=== PATIENT | female | born 1970 | race Hispanic/Latino ===

== ENCOUNTER 2019-11-15 10:24 | Outpatient (CLI) | payer OTHER, SELFPAY ==
[2019-11-15 10:45] LABS: Hemoglobin 12.3 g/dL (12.0-15.0); Mean Corpuscular HGB Conc 32.4 g/dl (32-36); Mean Corpuscular Hemoglobin 29.3 pg (26-34); Mean Corpuscular Volume 90.5 fl (80-100); Mean Platelet Volume 10.6 fl (7.4-10.4); Platelet Count Result 188 k/mm3 (150-375); Red Cell Distribution Width 12.4 % (11.5-14.5)
[2019-11-15 11:15] LABS: Rheumatoid Factor < 8.6 IU/ML (<12)
[2019-11-15 11:23] LABS: Blood Urea Nitrogen 10 mg/dL (7-17); Calcium 9.2 mg/dL (8.4-10.2); Carbon Dioxide 27 mmol/L (22-30); Chloride 106 mmol/L (98-107); Estimated Glomerular Filt Rate > 60; Glucose 123 mg/dL (65-105); Potassium 4.1 mmol/L (3.4-5.0); Sodium 141 mmol/L (137-145)
[2019-11-15 11:32] LABS: Erythrocyte Sedimentation Rate 24 mm/hr (0-20)
== END 2019-11-15 10:25 | disposition home or self-care (01) ==
LOC: ANHLAB 10:26
PROVIDERS: PCP Family Medicine; Visit Provider Nurse Practitioner Family
DX: R53.83 Other fatigue (principal); E55.9 Vitamin D deficiency, unspecified; E03.9 Hypothyroidism, unspecified
CPT/HCPCS: 36415; 80048; 82306; 84436; 84443; 85027; 85652; 86038; 86430

== ENCOUNTER 2019-12-13 11:41 | Outpatient (CLI) | payer OTHER, SELFPAY ==
[2019-12-13 12:25] LABS: Alanine Aminotransferase 38 U/L (4-35); Albumin Level 4.1 g/dL (3.5-5.1); Alkaline Phosphatase 87 U/L (38-126); Aspartate Amino Transferase 52 U/L (14-36); Bilirubin,Total 0.8 mg/dL (0.2-1.3); Blood Urea Nitrogen 8 mg/dL (7-17); Calcium 9.4 mg/dL (8.4-10.2); Carbon Dioxide 29 mmol/L (22-30); Chloride 107 mmol/L (98-107); Estimated Glomerular Filt Rate > 60; Glucose 115 mg/dL (65-105); Potassium 4.6 mmol/L (3.4-5.0); Sodium 143 mmol/L (137-145)
[2019-12-13 13:31] LABS: Hemoglobin A1C 6.7 % (<5.7)
[2019-12-13 13:36] LABS: Folic Acid > 20.0 ng/mL (2.76->20)
== END 2019-12-13 11:42 | disposition home or self-care (01) ==
PROVIDERS: PCP Nurse Practitioner Family; Visit Provider Nurse Practitioner Family
DX: E03.9 Hypothyroidism, unspecified (principal); R73.9 Hyperglycemia, unspecified; R53.83 Other fatigue
CPT/HCPCS: 36415; 80048; 80053; 82607; 82746; 83036; 84443

== ENCOUNTER → 2020-05-05 11:19 | Outpatient (CLI) | payer OTHER, SELFPAY ==
--- NOTE | ~2020-05-05 | CT_ITS ---
EXAMINATION: CT abdomen pelvis wo con DATE: 05/05/2020 11:42 INDICATION: Right flank and left lower quadrant pain, unspecified renal colic TECHNIQUE: Computed tomography (CT) of the abdomen and pelvis was performed without intravenous contr ast. The dose-length product (DLP) was 709.14 mGy-cm. Automated exposure control and iterative recons truction technique were employed. COMPARISON: 11/14/2014 FINDINGS: Minimal dependent atelectasis is present in the lung bases. The heart size is normal. The g allbladder is surgically absent. The liver, spleen, pancreas, and adrenal glands are normal. The kidn eys are unremarkable. No stones are identified in the kidneys, ureters, or bladder. There is no hydro nephrosis or hydroureter. Phleboliths are noted in the left ovarian vein. The appendix is normal. The visualized osseous structures are unremarkable. There is a tiny umbilical hernia containing fat. IMPRESSION: 1. No CT correlate for the patient's symptoms. Reviewed, dictated and finalized at location A. GE DISPOSAL ENGINEER
--- NOTE | ~2020-05-05 | MR_ITS ---
EXAMINATION: MR lumbar spine wo con DATE: 05/05/2020 12:10 INDICATION: Right-sided low back pain. TECHNIQUE: Magnetic resonance imaging (MRI) of the lumbar spine was performed without intravenous con trast. Sequences included sagittal T2-weighted FSE, sagittal T2-weighted FS FSE, sagittal T1-weighted FSE, and axial T2-weighted FSE. COMPARISON: None. FINDINGS: There is 7 degrees dextrocurvature of thoracolumbar spine. Vertebral body heights and inter vertebral disc heights are normal. The distal spinal cord signal intensity is normal. The conus medul griselda is at L1. The following disc levels are specifically discussed: L1-L2: The disc does not extend beyond the endplate margin. There is mild bilateral facet joint osteo arthritis. There is no neural foraminal stenosis. There is no central canal stenosis. L2-L3: The disc does not extend beyond the endplate margin. There is mild bilateral facet joint osteo arthritis. There is no neural foraminal stenosis. There is no central canal stenosis. L3-L4: The disc does not extend beyond the endplate margin. There is mild bilateral facet joint osteo arthritis. There is no neural foraminal stenosis. There is no central canal stenosis. L4-L5: The disc does not extend beyond the endplate margin. There is severe bilateral facet joint ost eoarthritis. There is no neural foraminal stenosis. There is no central canal stenosis. L5-S1: The disc does not extend beyond the endplate margin. There is moderate bilateral facet joint o steoarthritis. There is no neural foraminal stenosis. There is no central canal stenosis. IMPRESSION: 1. Lumbar facet joint osteoarthritis. Reviewed, dictated and finalized at location B. ST SURGEON
== END ==
PROVIDERS: PCP Nurse Practitioner Family; Visit Provider Nurse Practitioner Family
DX: R20.0 Anesthesia of skin (principal); N23 Unspecified renal colic; M51.36 Other intervertebral disc degeneration, lumbar region
CPT/HCPCS: 72148; 74176

== ENCOUNTER 2020-12-11 10:50 | Outpatient (CLI) | payer OTHER, SELFPAY ==
[2020-12-11 11:54] LABS: Hemoglobin A1C 6.2 % (<5.7)
[2020-12-11 12:00] LABS: Alanine Aminotransferase 55 U/L (4-35); Albumin Level 4.5 g/dL (3.5-5.1); Alkaline Phosphatase 72 U/L (38-126); Anion Gap 10 mmol/L (8-16); Aspartate Amino Transferase 51 U/L (14-36); Bilirubin,Total 1.1 mg/dL (0.2-1.3); Blood Urea Nitrogen 8 mg/dL (7-17); CRP < 0.5 mg/dL (<1.0); Calcium 9.6 mg/dL (8.4-10.2); Carbon Dioxide 28 mmol/L (22-30); Chloride 103 mmol/L (98-107); Cholesterol 202 mg/dL (0-200); Estimated Glomerular Filt Rate > 60; Glucose 104 mg/dL (65-110); HDL Direct 42 mg/dL; Potassium 3.9 mmol/L (3.4-5.0); Sodium 141 mmol/L (137-145); Triglycerides 137 mg/dL (<150); Uric Acid 3.5 mg/dL (2.5-7.5)
[2020-12-11 12:03] LABS: Rheumatoid Factor < 8.6 IU/ML (<12)
[2020-12-11 12:09] LABS: LDL Cholesterol Direct 117 mg/dL
[2020-12-11 12:12] LABS: Erythrocyte Sedimentation Rate 23 mm/hr (0-20)
== END 2020-12-11 10:51 | disposition home or self-care (01) ==
LOC: ANHLAB 10:51
PROVIDERS: PCP Nurse Practitioner Family; Visit Provider Nurse Practitioner Family
DX: E03.9 Hypothyroidism, unspecified (principal); E11.9 Type 2 diabetes mellitus without complications; M25.50 Pain in unspecified joint
CPT/HCPCS: 36415; 80053; 80061; 83036; 84443; 84550; 85652; 86038; 86140; 86430

== ENCOUNTER 2021-10-22 12:22 | Outpatient (CLI) | payer OTHER, SELFPAY ==
[2021-10-22 13:09] LABS: Alanine Aminotransferase 43 U/L (6-35); Albumin Level 4.3 g/dL (3.5-5.1); Alkaline Phosphatase 88 U/L (38-126); Anion Gap 5 mmol/L (8-16); Aspartate Amino Transferase 52 U/L (14-36); Bilirubin,Total 0.9 mg/dL (0.2-1.3); Blood Urea Nitrogen 7 mg/dL (7-17); Calcium 9.1 mg/dL (8.4-10.2); Carbon Dioxide 32 mmol/L (22-30); Chloride 104 mmol/L (98-107); Cholesterol 142 mg/dL (0-200); Estimated Glomerular Filt Rate > 60; Glucose 116 mg/dL (65-110); HDL Direct 33 mg/dL; Potassium 4.3 mmol/L (3.4-5.0); Sodium 141 mmol/L (137-145); Triglycerides 146 mg/dL (<150)
[2021-10-22 13:24] LABS: LDL Cholesterol Direct 82 mg/dL
[2021-10-22 13:33] LABS: Hemoglobin A1C 6.3 % (<5.7)
[2021-10-22 13:46] LABS: Free T4 Free Thyroxine 1.44 ng/mL (0.78-2.19); Vitamin D 25 Hydroxy 32.5 ng/mL
[2021-10-22 13:59] LABS: Creatinine Urine 73.2 mg/dL
[2021-10-22 14:08] LABS: Microalbumin Urine Random < 6.0 mg/L (0-16.7)
[2021-10-22 14:09] LABS: MALB Creatinine Ratio < 8.2 mg/g (0-30)
[2021-10-22 14:37] LABS: Folic Acid 8.6 ng/mL (2.76->20)
[2021-10-25 05:57] LABS: Thyroid Peroxidase Antibodies <1 IU/mL (<9)
[2021-10-25 21:45] LABS: Triiodothyronine T3 Free 3.1 pg/mL (2.3-4.2)
== END 2021-10-22 12:23 | disposition home or self-care (01) ==
LOC: ANHLAB 12:23
PROVIDERS: PCP Nurse Practitioner Family; Visit Provider Internal Medicine Endocrinology, Diabetes & Metabolism
DX: E78.5 Hyperlipidemia, unspecified (principal); E03.9 Hypothyroidism, unspecified; E55.9 Vitamin D deficiency, unspecified
CPT/HCPCS: 36415; 80053; 80061; 82043; 82306; 82607; 82746; 83036; 84439; 84443; 84481; 86376

== ENCOUNTER → 2021-11-08 16:15 | Outpatient (CLI) | payer OTHER, SELFPAY ==
--- NOTE | ~2021-11-08 | US_ITS ---
EXAMINATION: US thyroid DATE: 11/08/2021 16:32 INDICATION: Goiter. Hypothyroidism. TECHNIQUE: Multiple ultrasound images of the thyroid were obtained. COMPARISON: None. FINDINGS: The right thyroid lobe measures 3.3 x 1.1 x 1.1 cm. The left thyroid lobe measures 2.7 x 0.7 x 1.0 c m. In the right thyroid lobe, there is a 6 mm solid, hypoechoic, wider than tall nodule with ill-def ined margin without echogenic foci (TR4). IMPRESSION: 1. Small thyroid nodule, likely not clinically significant. No follow-up is needed. Reviewed, dictated and finalized at location K. IMPRESSION: 1. Small thyroid nodule, likely not clinically significant. No follow-up is nee ded.
== END ==
PROVIDERS: PCP Nurse Practitioner Family; Visit Provider Internal Medicine Endocrinology, Diabetes & Metabolism
DX: E04.9 Nontoxic goiter, unspecified (principal)
CPT/HCPCS: 76536

== ENCOUNTER 2022-01-05 09:06 | Outpatient (RCR) | payer OTHER, SELFPAY | END 2022-03-27 08:26 | disposition home or self-care (01) | LOC: ANHDMC 09:06 | PROVIDERS: PCP Nurse Practitioner Family; Visit Provider Internal Medicine Endocrinology, Diabetes & Metabolism | DX: E11.65 Type 2 diabetes mellitus with hyperglycemia (principal); Z71.89 Other specified counseling | CPT/HCPCS: G0108 ==

== ENCOUNTER 2022-07-15 10:51 | Outpatient (CLI) | payer OTHER, SELFPAY ==
[2022-07-15 11:39] LABS: Alanine Aminotransferase 44 U/L (6-35); Albumin Level 4.4 g/dL (3.5-5.1); Alkaline Phosphatase 104 U/L (38-126); Anion Gap 7 mmol/L (8-16); Aspartate Amino Transferase 51 U/L (14-36); Bilirubin,Total 0.8 mg/dL (0.2-1.3); Blood Urea Nitrogen 7 mg/dL (7-17); Calcium 8.9 mg/dL (8.4-10.2); Carbon Dioxide 27 mmol/L (22-30); Chloride 107 mmol/L (98-107); Estimated Glomerular Filt Rate > 60; Glucose 116 mg/dL (65-110); Potassium 4.1 mmol/L (3.4-5.0); Sodium 141 mmol/L (137-145)
[2022-07-15 11:41] LABS: Hemoglobin A1C 6.7 % (<5.7)
[2022-07-15 11:58] LABS: Free T4 Free Thyroxine 1.38 ng/mL (0.78-2.19)
[2022-07-15 12:10] LABS: Thyroid Stimulating Hormone 0.469 uIU/mL (0.465-4.680)
[2022-07-15 12:17] LABS: Creatinine Urine 107.5 mg/dL
[2022-07-15 12:27] LABS: Parathyroid Intact 78.6 pg/mL (7.5-53.5)
[2022-07-15 12:46] LABS: MALB Creatinine Ratio < 5.6 mg/g (0-30); Microalbumin Urine Random < 6.0 mg/L (0-16.7)
[2022-07-19 20:37] LABS: Triiodothyronine T3 Free 2.8 pg/mL (2.3-4.2)
[2022-07-20 03:15] LABS: Thyroid Peroxidase Antibodies <1 IU/mL (<9)
== END 2022-07-15 10:52 | disposition home or self-care (01) ==
PROVIDERS: PCP Nurse Practitioner Family; Visit Provider Internal Medicine Endocrinology, Diabetes & Metabolism
DX: E11.9 Type 2 diabetes mellitus without complications (principal); E03.9 Hypothyroidism, unspecified; E04.1 Nontoxic single thyroid nodule
CPT/HCPCS: 36415; 80053; 82043; 82308; 83036; 83970; 84439; 84443; 84481; 86376

== ENCOUNTER 2022-07-22 08:28 | Outpatient (CLI) | payer OTHER, SELFPAY ==
[2022-07-26 06:35] LABS: Calcitonin <2 pg/mL (<=5)
== END 2022-07-22 08:29 | disposition home or self-care (01) ==
LOC: ANHLAB 08:31
PROVIDERS: PCP Nurse Practitioner Family; Visit Provider Internal Medicine Endocrinology, Diabetes & Metabolism
DX: E11.9 Type 2 diabetes mellitus without complications (principal); E03.9 Hypothyroidism, unspecified; E04.1 Nontoxic single thyroid nodule
CPT/HCPCS: 36415; 82308

== ENCOUNTER 2022-07-26 15:41 | Outpatient (CLI) | payer OTHER, SELFPAY ==
--- NOTE | ~2022-07-26 | US_ITS ---
EXAMINATION: US thyroid DATE: 07/26/2022 16:09 INDICATION: Nontoxic single thyroid nodule. TECHNIQUE: Multiple ultrasound images of the thyroid were obtained. COMPARISON: Ultrasound 11/08/2021 FINDINGS: The right thyroid lobe measures 3.3 x 1.0 x 1.0 cm. The left thyroid lobe measures 3.2 x 1.2 x 1.1 c m. In the right thyroid lobe, there is a 7 mm solid, hypoechoic, wider than tall nodule with irregul ar margin without echogenic foci (TI-RADS TR4). IMPRESSION: 1. Stable thyroid nodule, likely not clinically significant. No follow-up is needed. Reviewed, dictated and finalized at location A. T ARMORED VEHICLE OFFICER IMPRESSION: 1. Stable thyroid nodule, likely not clinically significant. No follow-up is ne eded.
== END 2022-07-26 15:42 | disposition home or self-care (01) ==
PROVIDERS: PCP Nurse Practitioner Family; Visit Provider Internal Medicine Endocrinology, Diabetes & Metabolism
DX: E04.1 Nontoxic single thyroid nodule (principal)
CPT/HCPCS: 76536

== ENCOUNTER 2022-11-11 09:48 | Outpatient (CLI) | payer OTHER, SELFPAY ==
[2022-11-11 10:54] LABS: Parathyroid Intact 56.8 pg/mL (7.5-53.5)
[2022-11-11 11:00] LABS: Alanine Aminotransferase 57 U/L (6-35); Albumin Level 4.6 g/dL (3.5-5.1); Alkaline Phosphatase 111 U/L (38-126); Anion Gap 9 mmol/L (8-16); Aspartate Amino Transferase 62 U/L (14-36); Bilirubin,Total 0.9 mg/dL (0.2-1.3); Blood Urea Nitrogen 8 mg/dL (7-17); Calcium 9.4 mg/dL (8.4-10.2); Carbon Dioxide 29 mmol/L (22-30); Chloride 102 mmol/L (98-107); Estimated Glomerular Filt Rate > 60; Glucose 190 mg/dL (65-110); Potassium 4.3 mmol/L (3.4-5.0); Sodium 140 mmol/L (137-145)
[2022-11-11 11:07] LABS: Free T4 Free Thyroxine 1.17 ng/mL (0.78-2.19); Vitamin D 25 Hydroxy 30.3 ng/mL
[2022-11-11 12:33] LABS: MALB Creatinine Ratio < 6.8 mg/g (0-30); Microalbumin Urine Random < 6.0 mg/L (0-16.7)
[2022-11-11 13:25] LABS: Hemoglobin A1C 7.8 % (<5.7)
[2022-11-15 04:29] LABS: Thyroid Peroxidase Antibodies <1 IU/mL (<9)
[2022-11-15 14:51] LABS: Triiodothyronine T3 Free 2.5 pg/mL (2.3-4.2)
== END 2022-11-11 09:49 | disposition home or self-care (01) ==
LOC: ANHLAB 09:52
PROVIDERS: PCP Nurse Practitioner Family; Referring Provider Obstetrics & Gynecology; Visit Provider Internal Medicine Endocrinology, Diabetes & Metabolism
DX: E04.1 Nontoxic single thyroid nodule (principal); E03.9 Hypothyroidism, unspecified; E11.9 Type 2 diabetes mellitus without complications
CPT/HCPCS: 36415; 80053; 82043; 82306; 82308; 83036; 83970; 84439; 84443; 84481; 86376

== ENCOUNTER 2023-01-31 06:58 | Outpatient (CLI) | payer OTHER, SELFPAY ==
[2023-01-31 08:24] LABS: Alanine Aminotransferase 36 U/L (6-35); Albumin Level 4.1 g/dL (3.5-5.1); Alkaline Phosphatase 88 U/L (38-126); Anion Gap 6 mmol/L (8-16); Aspartate Amino Transferase 43 U/L (14-36); Bilirubin,Total 0.7 mg/dL (0.2-1.3); Blood Urea Nitrogen 7 mg/dL (7-17); Calcium 8.7 mg/dL (8.4-10.2); Carbon Dioxide 31 mmol/L (22-30); Chloride 104 mmol/L (98-107); Estimated Glomerular Filt Rate > 60; Glucose 116 mg/dL (65-110); Sodium 141 mmol/L (137-145)
[2023-01-31 08:42] LABS: Hemoglobin A1C 6.4 % (<5.7)
[2023-01-31 08:45] LABS: Creatinine Urine 220.7 mg/dL
[2023-01-31 08:47] LABS: Free T4 Free Thyroxine 1.32 ng/mL (0.78-2.19)
[2023-01-31 08:48] LABS: MALB Creatinine Ratio 4.2 mg/g (0-30); Microalbumin Urine Random 9.3 mg/L (0-16.7)
[2023-02-03 07:10] LABS: Triiodothyronine T3 Free 2.6 pg/mL (2.3-4.2)
== END 2023-01-31 06:59 | disposition home or self-care (01) ==
LOC: ANHLAB 06:59
PROVIDERS: PCP Nurse Practitioner Family; Visit Provider Internal Medicine Endocrinology, Diabetes & Metabolism
DX: E11.65 Type 2 diabetes mellitus with hyperglycemia (principal); E03.9 Hypothyroidism, unspecified
CPT/HCPCS: 36415; 80053; 82043; 83036; 84439; 84443; 84481

== ENCOUNTER 2024-01-26 11:07 | Outpatient (CLI) | payer OTHER, SELFPAY ==
[2024-01-26 11:46] LABS: Cholesterol 145 mg/dL (0-200); HDL Direct 40 mg/dL; Triglycerides 106 mg/dL (<150)
[2024-01-26 11:57] LABS: LDL Cholesterol Direct 85 mg/dL
== END 2024-01-26 11:08 | disposition home or self-care (01) ==
LOC: ANHLAB 11:09
PROVIDERS: PCP Nurse Practitioner Family; Visit Provider Family Medicine
DX: E78.5 Hyperlipidemia, unspecified (principal)
CPT/HCPCS: 36415; 80061

== ENCOUNTER 2024-06-14 09:10 | Outpatient (CLI) | payer OTHER, SELFPAY ==
[2024-06-14 09:47] LABS: Alanine Aminotransferase 20 U/L (6-35); Albumin Level 4.4 g/dL (3.5-5.1); Alkaline Phosphatase 70 U/L (38-126); Anion Gap 6 mmol/L (4-12); Aspartate Amino Transferase 26 U/L (14-36); Bilirubin,Total 0.9 mg/dL (0.2-1.3); Blood Urea Nitrogen 9 mg/dL (7-17); Calcium 9.5 mg/dL (8.4-10.2); Carbon Dioxide 30 mmol/L (22-30); Chloride 104 mmol/L (98-107); Cholesterol 186 mg/dL (0-200); Estimated Glomerular Filt Rate > 60; Glucose 104 mg/dL (65-110); HDL Direct 49 mg/dL; Potassium 4.5 mmol/L (3.4-5.0); Sodium 140 mmol/L (137-145); Triglycerides 150 mg/dL (<150)
[2024-06-14 09:57] LABS: LDL Cholesterol Direct 107 mg/dL
[2024-06-14 10:06] LABS: Free T4 Free Thyroxine 1.63 ng/dL (0.78-2.19)
[2024-06-14 10:18] LABS: Thyroid Stimulating Hormone 0.513 uIU/mL (0.465-4.680)
[2024-06-14 10:23] LABS: Creatinine Urine 183.7 mg/dL
[2024-06-14 10:28] LABS: MALB Creatinine Ratio 8.5 mg/g (0-30); Microalbumin Urine Random 15.6 mg/L (0-16.7)
--- OUTSIDE RECORDS SUMMARY | 2024-06-19 08:42 | XMS_ITS | Clinical Summary ---
Author Organization [facility] Address [address] [place] [address] Care Team Providers Care Tonnage Compilation Clerk Name Role Phone Harjit Patel MD Primary Care Provider [phone] Allergies No known active allergies Medications levothyroxine 125 mcg tablet Take 125 mcg by mouth daily travel consultant. Active atorvastatin (LIPITOR) 10 mg tablet Take 10 mg by mouth late in the day. Active cetirizine (ZyrTEC) 10 mg tablet Take 10 mg by mouth daily. Active Estradiol-Noreth indrone Acet (LOPREEZA) 0.5-0.1 mg Tablet Take 1 Tablet by mouth daily. Active pantoprazole (PROTONIX) 40 mg Tablet, Delayed Release (E.C.) Take 40 mg by mouth daily. Active ALPRAZolam (XANAX) 0.5 mg tablet Take 0.5 mg by mouth 3 times daily as needed for Anxiety. Active ergocalciferol (VITAMIN D2) 50,000 unit capsule Take 50,000 Units by mouth every 7 days. Active traMADol (ULTRAM) 50 mg tabletIndication s:Acute pain of right shoulder,Impinge ment syndrome of right shoulder Take 1 Tablet (50 mg) by mouth every 6 hours as needed for Pain. 30 Tablet 06/30/2019 Active traMADoL (ULTRAM) 50 mg tabletIndication s:Impingement syndrome of right shoulder Take 1 Tablet (50 mg) by mouth every 6 hours as needed for Pain. 30 Tablet 08/15/2019 Active traMADoL (ULTRAM) 50 mg tabletIndication s:Cervical radiculopathy,Im pingement syndrome of right shoulder Take 1 Tablet (50 mg) by mouth every 6 hours as needed for Pain. 30 Tablet 11/18/2019 Active Active Problems Problem Noted Date Diagnosed Date Bursitis of right shoulder 09/12/2017 Leukopenia 02/14/2017 Family History Medical History Relation Name Comments Diabetes Father Diabetes Mother Diabetes Sister 1 Diabetes Sister 2 Relation Name Status Comments Father Alive Mother Alive Sister 1 Alive Sister 2 Alive Social History Tobacco Use Types Packs/Day Years Used Date Smoking Tobacco: Former Cigarettes 0.3 5 0 02/14/2002 - 02/14/2007 Alcohol Use Standard Drinks/Week Comments No 0 (1 standard drink = 0.6 oz pur e alcohol) Comments No Sex and Gender Information Value Date Recorded Sex Assigned at Not on file Legal Sex Female 4:14 PM CDT Gender Identity Not on file Sexual Orientation Not on file Last Filed Vital Signs Vital Sign Reading Time Taken Comments Blood Pressure 100/72 07/23/2018 3:26 PM SUSPENSION CORD TIER Pulse 89 07/23/2018 3:26 PM SUSPENSION CORD TIER Temperature 36.9 ??C (98.4 ??F) 02/14/2017 10:41 AM C DT Respiratory Rate 16 02/14/2017 10:41 AM CDT Oxygen Saturation - - Inhaled Oxygen Concentration - - Weight 73.9 kg (163 lb) 08/04/2019 2:02 PM CDT Height 152.4 cm (5') 08/04/2019 2:02 PM CDT Body Mass Index 31.83 08/04/2019 2:02 PM CDT Plan of Treatment Health Maintenance Due Date Last Done Comments DTAP/TDAP/TD VACCINES (1 - Tdap) 1988 HEPATITIS B VACCINES (1 of 3 - 19+ 3-dose series) 1988 CERVICAL CANCER SCREENING 1999 BREAST CANCER SCREENING 2009 COLORECTAL SCREENING 2014 Colorectal Cancer Screening 2014 FIT-DNA Q 3 years 2014 FIT/FOBT Q 1 year 2014 Flex Sig/CT Colonography Q 5 years 2014 ZOSTER VACCINE (1 of 2) 2019 INFLUENZA VACCINE (#1) 2023 PNEUMOCOCCAL VACCINE 0-64 YEARS Aged Out No longer eligible based on patient's age to complete this topic Insurance [employer] [facility] OPEN ACCESS Care Teams Tonnage Compilation Clerk Relationship Specialty Start Date End Date Harjit Patel MD [address] [place] [address] PCP - General Family Practice 02/14/17
--- OUTSIDE RECORDS SUMMARY | 2024-06-19 08:42 | XMS_ITS | Data Portability ---
Author Organization [facility] [employer], Main Office Address [address] [place] [id number] Care Team Providers Care Grain Handler Name Role Phone CORBIN GALICIA Primary Care Provider [phone] Assessment Encounter Date Assessment Date Assessment LastModified by Organization Details LastModified Time 07/11/2023 07/11/2023 53 yo F with - WELL ADULT VISIT - LT LOWER LEG PAIN - HLD - DM II - HYPOTHYROIDISM - GERD - KNEE OA - DEPRESSION - ANXIETY - CHRONIC INSOMNIA - OBESITY I D/w pt about her findings, recent labs & imagines and further plan of care. Will do routine labs, x-ray. Will refer pt to Ophtho, Opening Machine Cleaner and GI. Meds as directed. Diet and exercise explained in detail. Educated pt about alarming symptoms to monitor at home and call us back Or get checked in ED. Pt verbalized understanding it. Cont f/u with Endo as per schedule. Cont f/u with Psych at [facility] as per schedule. HM: WWE - 12/17, normal as per pt. Cont f/u with Gyne as per schedule. Mammo - 12/17, normal as per pt. Colonoscopy - 12 yrs ago. Referred to GI. Flu - Pt declined. Tdap, Shingrix, Pneumo - At pharmacy/HD. F/u in 2-3 weeks. Annual labs in 07/22. [email or web address] Not available 07/11/2023 17:40:19 09/10/2023 09/10/2023 53 yo F with - LT WRIST & RT 5th FINGER PAIN, chronic - LT LOWER LEG PAIN, chronic - HLD, uncontrolled - DM II - HYPOTHYROIDISM - GERD - KNEE OA - DEPRESSION - ANXIETY - CHRONIC INSOMNIA - OBESITY I HbA1c: 5.3(07/28/23) Annual labs: 07/28/23. X-ray Lt le07/25/23. D/w pt about her findings, recent labs & imagines and further plan of care. Will do x-rays. Will refer pt to Hand surgeon. Advised pt to talk with her Endo about her TSH result and dose change. Meds as directed. Diet and exercise explained in detail. Educated pt about alarming symptoms to monitor at home and call us back Or get checked in ED. Pt verbalized understanding it. F/u with Ophtho as per schedule. F/u with Opening Machine Cleaner as per schedule. Cont f/u with Endo as per schedule. Cont f/u with Psych at [facility] as per schedule. HM: WWE - 12/17, normal as per pt. Cont f/u with Gyne as per schedule. Mammo - 12/17, normal as per pt. Colonoscopy - 12 yrs ago. Referred to GI. Flu - Pt declined. Tdap, Shingrix, Pneumo - At pharmacy/HD. F/u in 3 months. Lipids in 12/18. Annual labs in 07/22. [email or web address] Not available 09/10/2023 17:44:09 01/30/2024 01/30/2024 53 yo F with - HLD, improved - DM II - HYPOTHYROIDISM - LT WRIST & RT 5th FINGER PAIN, chronic - LT LOWER LEG PAIN, chronic - GERD - RECURRENT HERPES - KNEE OA - DEPRESSION - ANXIETY - CHRONIC INSOMNIA - OBESITY I HbA1c: 5.3(07/28/23) X-ray Rt hand & Lt wrist: 10/02/23. Annual labs: 07/28/23. X-ray Lt le07/25/23. D/w pt about her findings, recent labs & imagines and further plan of care. Will refer pt to Hand surgeon again. Advised pt to talk with her Endo about her TSH result and dose change. Meds as directed. Diet and exercise explained in detail. Educated pt about alarming symptoms to monitor at home and call us back Or get checked in ED. Pt verbalized understanding it. F/u with hand surgeon as per schedule. F/u with Ophtho as per schedule. F/u with Opening Machine Cleaner as per schedule. Cont f/u with Endo as per schedule. Cont f/u with Psych at [facility] as per schedule. HM: WWE - 12/17, normal as per pt. Cont f/u with Gyne as per schedule. Mammo - 12/17, normal as per pt. Colonoscopy - 12/18, normal as per pt. Cont f/u with GI as per schedule. Flu - Pt declined. Tdap, Shingrix, Pneumo - At pharmacy/HD. F/u in 3 months. Annual labs in 07/22. [email or web address] Not available 01/30/2024 17:18:17 Plan of Treatment Reminders Order Date Submit Date Provider Last Modified By Organization Details Last Modified Time Details Appointments None recorded. Lab CMP, serum or plasma 2022 023 [facility] (Lab), [address] [place] [address], [address], 3 13:28:01 HbA1c (hemoglobin A1c), blood 2022 023 [facility] (Lab), [address] [place] [address], [address], 4 14:50:44 microalbumi n/creatinin e, mass ratio, urine 2022 023 [facility] (Lab), [address] [place] [address], [address], 3 16:32:50 T3, free, serum or plasma 2022 023 [facility] (Lab), [address] [place] [address], [address], 4 17:12:58 TSH, serum or plasma 2022 023 [facility] (Lab), [address] [place] [address], [address], 3 11:31:54 T4, free, serum 2022 023 [facility] (Lab), [address] [place] [address], [address], 4 14:50:41 vitamin D, 25-hydroxy, total, serum [address] (Lab), [address] [place], [address], 4 14:00:33 glycohemogl obin, total, blood [address] (Lab), [address] [place], [address], 4 14:00:34 microalbumi n, urine [address] (Lab), [address] [place], [address], 4 14:00:34 H pylori Ag, qual immunoassay , stool [address] (Lab), [address] [place], [address], 4 14:00:34 uric acid, serum or plasma [address] (Lab), [address] [place], [address], 4 14:00:34 CBC w/ auto diff [address] (Lab), [address] [place], [address], 4 14:00:32 CMP, serum or plasma [address] (Lab), [address] [place], [address], 4 14:00:33 lipid panel, serum [address] (Lab), [address] [place], [address], 4 14:00:33 TSH, serum, reflex free T4 [address] (Lab), [address] [place], [address], 4 14:00:33 urinalysis complete, reflex culture [address] (Lab), [address] [place], [address], 4 14:00:33 lipid panel, serum [address] (Lab), [address] [place], [address], 4 08:26:42 Referral endocrinolo gy referral 2022 023 [email or web address] Elenita Courtney MD, [address], [place], [address], 4 17:12:58 gastroenter ologist referral - Please call patient to schedule an appointment . 2023 024 [email or web address] Raina Israel MD, [address] [facility], [address], [place], [address], 4 14:26:52 mint wafer depositor referral - Please call patient to schedule an appointment 2023 024 KENYA Martínez DPM, [address], [place], [address], 4 16:36:05 ophthalmolo gist referral - Please call patient to schedule an appointment . 2023 024 [email or web address] [facility], [address], [place], [address], 4 08:42:41 hand surgeon referral - Please call patient to schedule an appointment . Thank you. 2023 024 [email or web address] Rony Pollard MD, 2 [facility] , [address], [address], 4 08:39:37 Procedures None recorded. Surgeries None recorded. Imaging XR, tibia + fibula, 2 view 2023 024 [email or web address] Not available 4 09:41:02 XR, hand, 3 or more view 2023 024 [email or web address] Not available 4 08:56:39 XR, wrist, 3 or more view 2023 024 [email or web address] Not available 4 08:56:39 Medication Orders Trulicity 3 mg/0.5 mL subcutaneou s pen injector 2022 023 [facility] [address] [place], [place], [id number], 3 16:33:18 glimepiride 1 mg tablet 2022 023 [address] [facility], [address] [place], [place], [id number], 3 16:25:48 Synthroid 112 mcg tablet 2022 023 [place] [address] [facility], [address] [place] [address] , [address], [place], [address], 3 16:30:57 Mounjaro 5 mg/0.5 mL subcutaneou s pen injector 2022 023 [facility]00038, [address] [place], [place], [id number], 3 16:25:16 glimepiride 2 mg tablet 2022 023 [facility] #14116, [address] [facility], [place], [place], [id number], 3 16:25:15 metformin ER 500 mg tablet,exte nded release 24 hr 2022 023 [facility] #95963, [address] [facility], [place], [place], [id number], 3 16:26:25 OneTouch Verio test strips 2022 023 [facility] #88962, [address] [facility], [place], [place], [id number], 3 16:29:56 Synthroid 112 mcg tablet 2022 023 [facility], [address], [address], [place], [address], 3 16:26:53 pantoprazol e 40 mg tablet,latosha yed release 2023 024 [facility] #20433, [address] [facility], [place], [place], [id number], 4 17:24:05 celecoxib 200 mg capsule 2023 024 [facility] #63938, [address] [facility], [place], [place], [id number], 4 17:24:03 valacyclovi r 500 mg tablet 2023 024 [facility] #03771, [address] [facility], [place], [place], [id number], 4 20:05:59 atorvastati n 10 mg tablet 2023 024 [email or web address] [facility] #32243, [address], [place], [place], [id number], 4 17:12:52 pantoprazol e 40 mg tablet,latosha yed release 2023 024 [facility] #57529, [address], [place], [place], [id number], 4 20:06:08 celecoxib 200 mg capsule 2023 024 [facility] #17463, [address], [place], [place], [id number], 4 19:59:48 valacyclovi r 500 mg tablet 2023 024 [facility] #12580, [address], [place], [place], [id number], 4 17:10:05 pantoprazol e 40 mg tablet,latosha yed release 2023 024 [facility] #91893, [address], [place], [place], [id number], 4 17:10:05 atorvastati n 20 mg tablet 2023 024 [facility] #57546, [address], [place], [place], [id number], 4 00:16:13 celecoxib 200 mg capsule 2023 024 [facility] #45714, [address], [place], [place], [id number], 4 17:10:06 Patient TargetsNo targets recorded. Patient Instructions Encounter Date Encounter Id Patient Instructions Last Modified By Organization Details Last Modified Time 09/10/2023 [id number] high cholesterol : care instructions [email or web address] Not available 09/10/2023 17:44:20 01/30/2024 [id number] high cholesterol : care instructions [email or web address] Not available 01/30/2024 17:09:52 Reason for Referral Endocrinology Referral for U ncontrolled type 2 diabetes mellitus Referring Physician: Deana Castaneda, Endocrinology, Encounter Date: 02/06/2023 Director Client Referral for Screening colonoscopy Please call patient to schedule an appointment. Referring Physician: Corbin Galicia [facility] Medicine, Encounter Date: 07/11/2023 Opening Machine Cleaner Referral for Type 2 diabetes mellitus without complication Please call patient to schedule an appointment Referring Physician: Corbin Galicia [facility] Medicine, Encounter Date: 07/11/2023 Mobile Tester Referral for Type 2 diabetes mellitus without complication Please call patient to schedule an appointment. Referring Physician: Corbin Galicia [facility], Encounter Date: 07/11/2023 Hand Surgeon Referral for Pa in of left wrist Lt wrist and Rt 5th finger pain, chronic Please call patient to schedule an appointment. Thank you. Referring Physician: Corbin Galicia [facility], Encounter Date: 09/10/2023 Results Created Date Observation Date Name Description Value Unit Range Abnormal Flag Note LastModifiedBy Organization Detail LastModifiedTime 07/28/1907/30/2023 LIPID PANEL , [place] cholesterol, total 194 mg/dL <200 normal Not Available [facility] [address] [place], [address], 07/30/2023 14:50:36 07/28/1907/30/2023 LIPID PANEL , [place] HDL cholesterol 37 mg/dL > or = 50 low Not Available [facility] [address] [place], [address], 07/30/2023 14:50:36 07/28/1907/30/2023 LIPID PANEL , [place] triglyceride s 138 mg/dL <150 normal Not Available [facility] [address] [place], [address], 07/30/2023 14:50:36 07/28/19 24 07/30/2023 LIPID PANEL , [place] LDL-choleste rol 131 mg/dL _(linda c) high Refer ence range : <100 John able range <100 mg/dL for prima ry preve ntion ; <70 mg/dL for patie nts with CHD or diabe tic patie nts with > or = 2 CHD risk facto rs. LDL-C is now calcu lated using the Catie n-Hop kins calcu latcody n, which is a valid ated novel metho d provi ding sharmaine r accur acy than the Fried katt equat ion in the estim ation of LDL-C . Catie martinez SS et al. PAVITHRA. 2013; 310(1 9): 2061- 2068 (http ://ed ucati on.Qu Echometrix. FOLUP/f aq/FA Q164) Not Available [facility] [address] [place], [address], 07/30/2023 14:50:36 07/28/19 24 07/30/2023 LIPID PANEL , [place] chol/HDLC ratio 5.2 (calc ) <5.0 high Not Available [facility] [address] [place], [address], 07/30/2023 14:50:36 07/28/19 24 07/30/2023 LIPID PANEL , [place] non HDL cholesterol 157 mg/dL _(linda c) <130 high For patie nts with diabe pancho plus 1 major ASCVD risk facto r, treat ing to a non-H DL-C goal of <100 mg/dL (LDL- C of <70 mg/dL ) is susan campuzano thera peuti c optio n. Not Available [facility] [address] [place], [address], 07/30/2023 14:50:36 07/28/19 24 07/30/2023 URIC ACID uric acid 4.6 mg/dL 2.5-7. 0 normal Thera peuti c targe t for gout patie nts: <6.0 mg/dL Not Available [address] [place], [address], 07/30/2023 14:50:37 07/28/19 24 07/30/2023 COMPR EHENS FELIX METAB OLIC PANEL glucose 95 mg/dL 65-99 normal Fasti ng refer ence inter royer Not Available [address], [address], 07/30/2023 14:50:38 07/28/19 24 07/30/2023 COMPR EHENS FELIX METAB OLIC PANEL urea nitrogen (BUN) 10 mg/dL 7-25 normal Not Available [address], [address], 07/30/2023 14:50:38 07/28/19 24 07/30/2023 COMPR EHENS FELIX METAB OLIC PANEL creatinine 0.77 mg/dL 0.50-1 .03 normal Not Available [address] [place] [address] [place], [address], 07/30/2023 14:50:38 07/28/19 24 07/30/2023 COMPR EHENS FELIX METAB OLIC PANEL eGFR 92 mL/mi n/1.7 3m2 > or = 60 normal Not Available [address], [address], 07/30/2023 14:50:38 07/28/19 24 07/30/2023 COMPR EHENS FELIX METAB OLIC PANEL BUN/creatini ne ratio SEE NOTE: (calc ) 6-22 Not Repor nieves: BUN and Creat inine are withi n refer ence range . Not Available [address], [address], 07/30/2023 14:50:38 07/28/19 24 07/30/2023 COMPR EHENS FELIX METAB OLIC PANEL sodium 141 mmol/ L 135-14 6 normal Not Available [facility] [address] [address], [place], [address], 07/30/2023 14:50:38 07/28/19 24 07/30/2023 COMPR EHENS FELIX METAB OLIC PANEL potassium 4.3 mmol/ L 3.5-5. 3 normal Not Available [address], [address], 07/30/2023 14:50:38 07/28/19 24 07/30/2023 COMPR EHENS FELIX METAB OLIC PANEL chloride 105 mmol/ L 98-110 normal Not Available [address], [address], 07/30/2023 14:50:38 07/28/19 24 07/30/2023 COMPR EHENS FELIX METAB OLIC PANEL carbon dioxide 28 mmol/ L 20-32 normal Not Available [address], [address], 07/30/2023 14:50:38 07/28/19 24 07/30/2023 COMPR EHENS FELIX METAB OLIC PANEL calcium 9.8 mg/dL 8.6-10 .4 normal Not Available [address], [address], 07/30/2023 14:50:38 07/28/19 24 07/30/2023 COMPR EHENS FELIX METAB OLIC PANEL protein, total 7.5 g/dL 6.1-8. 1 normal Not Available [address], [address], 07/30/2023 14:50:38 07/28/19 24 07/30/2023 COMPR EHENS FELIX METAB OLIC PANEL albumin 4.6 g/dL 3.6-5. 1 normal Not Available [address], [address], 07/30/2023 14:50:38 07/28/19 24 07/30/2023 COMPR EHENS FELIX METAB OLIC PANEL globulin 2.9 g/dL_ (calc ) 1.9-3. 7 normal Not Available [address], [address], 07/30/2023 14:50:38 07/28/19 24 07/30/2023 COMPR EHENS FELIX METAB OLIC PANEL albumin/glob ulin ratio 1.6 (calc ) 1.0-2. 5 normal Not Available [address], [address], 07/30/2023 14:50:38 07/28/19 24 07/30/2023 COMPR EHENS FELIX METAB OLIC PANEL bilirubin, total 0.7 mg/dL 0.2-1. 2 normal Not Available [address], [address], 07/30/2023 14:50:38 07/28/19 24 07/30/2023 COMPR EHENS FELIX METAB OLIC PANEL alkaline phosphatase 63 U/L 37-153 normal Not Available [address], [address], 07/30/2023 14:50:38 07/28/19 24 07/30/2023 COMPR EHENS FELIX METAB OLIC PANEL AST 21 U/L 10-35 normal Not Available [address], [address], 07/30/2023 14:50:38 07/28/19 24 07/30/2023 COMPR EHENS FELIX METAB OLIC PANEL ALT 17 U/L 6-29 normal Not Available [address], [address], 07/30/2023 14:50:38 07/28/19 24 07/30/2023 CBC (INCL UDES DIFF/ PLT) white blood cell count 4.1 thous and/u L 3.8-10 .8 normal Not Available [address], [address], 07/30/2023 14:50:40 07/28/19 24 07/30/2023 CBC (INCL UDES DIFF/ PLT) red blood cell count 4.45 alex on/uL 3.80-5 .10 normal Not Available [address], [address], 07/30/2023 14:50:40 07/28/19 24 07/30/2023 CBC (INCL UDES DIFF/ PLT) hemoglobin 13.3 g/dL 11.7-1 5.5 normal Not Available [address], [address], 07/30/2023 14:50:40 07/28/19 24 07/30/2023 CBC (INCL UDES DIFF/ PLT) hematocrit 40.0 % 35.0-4 5.0 normal Not Available [address], [address], 07/30/2023 14:50:40 07/28/19 24 07/30/2023 CBC (INCL UDES DIFF/ PLT) MCV 89.9 fL 80.0-1 00.0 normal Not Available [address], [address], 07/30/2023 14:50:40 07/28/19 24 07/30/2023 CBC (INCL UDES DIFF/ PLT) MCH 29.9 pg 27.0-3 3.0 normal Not Available [address], [address], 07/30/2023 14:50:40 07/28/19 24 07/30/2023 CBC (INCL UDES DIFF/ PLT) MCHC 33.3 g/dL 32.0-3 6.0 normal Not Available [address], [address], 07/30/2023 14:50:40 07/28/19 24 07/30/2023 CBC (INCL UDES DIFF/ PLT) RDW 12.0 % 11.0-1 5.0 normal Not Available [address], [address], 07/30/2023 14:50:40 07/28/19 24 07/30/2023 CBC (INCL UDES DIFF/ PLT) platelet count 197 thous and/u L 140-40 0 normal Not Available [address], [address], 07/30/2023 14:50:40 07/28/19 24 07/30/2023 CBC (INCL UDES DIFF/ PLT) MPV 10.7 fL 7.5-12 .5 normal Not Available [address], [address], 07/30/2023 14:50:40 07/28/19 24 07/30/2023 CBC (INCL UDES DIFF/ PLT) absolute neutrophils 2677 cells /uL 1500-7 800 normal Not Available [address], [address], 07/30/2023 14:50:40 07/28/19 24 07/30/2023 CBC (INCL UDES DIFF/ PLT) absolute lymphocytes 1148 cells /uL 850-39 00 normal Not Available [address], [address], 07/30/2023 14:50:40 07/28/19 24 07/30/2023 CBC (INCL UDES DIFF/ PLT) absolute monocytes 213 cells /uL 200-95 0 normal Not Available [address], [address], 07/30/2023 14:50:40 07/28/19 24 07/30/2023 CBC (INCL UDES DIFF/ PLT) absolute eosinophils 41 cells /uL 15-500 normal Not Available [address], [address], 07/30/2023 14:50:40 07/28/19 24 07/30/2023 CBC (INCL UDES DIFF/ PLT) absolute basophils 21 cells /uL 0-200 normal Not Available [address], [address], 07/30/2023 14:50:40 07/28/19 24 07/30/2023 CBC (INCL UDES DIFF/ PLT) neutrophils 65.3 % normal Not Available [address], [address], 07/30/2023 14:50:40 07/28/19 24 07/30/2023 CBC (INCL UDES DIFF/ PLT) lymphocytes 28.0 % normal Not Available [address], [address], 07/30/2023 14:50:40 07/28/19 24 07/30/2023 CBC (INCL UDES DIFF/ PLT) monocytes 5.2 % normal Not Available [address], [address], 07/30/2023 14:50:40 07/28/19 24 07/30/2023 CBC (INCL UDES DIFF/ PLT) eosinophils 1.0 % normal Not Available [address], [address], 07/30/2023 14:50:40 07/28/19 24 07/30/2023 CBC (INCL UDES DIFF/ PLT) basophils 0.5 % normal Not Available [address], [address], 07/30/2023 14:50:40 07/28/19 24 07/30/2023 T4, FREE T4, free 1.4 NG/dL 0.8-1. 8 normal Not Available [facility] [address] [address], [place], [address], 07/30/2023 14:50:41 07/28/19 24 07/30/2023 TSH TSH 0.28 mIU/L low Refer ence Range > or = 20 Years 0.40- 4.50 Pregn stefany Range s First trime ster 0.26- 2.66 Secon d trime ster 0.55- 2.73 Third trime ster 0.43- 2.91 Not Available [facility] [address] [address] [address], [place], [address], 07/30/2023 14:50:42 07/28/19 24 07/30/2023 VITAM IN D,25- OH,TO HEATHER,I A vitamin D,25-oh,tota l,ia 38 NG/mL 30-100 normal Vitam in D Statu s 25-OH Vitam in D: Defic iency : <20 ng/mL Insuf ficie ncy: 20 - 29 ng/mL Optim al: > or = 30 ng/mL For 25-OH Vitam in D testi ng on patie nts on D2-burger pplem entat ion and patie nts for whom quant itati on of D2 and D3 fract ions is requi red, the [facility] e[facility](TM ) 25-OH VIT D, (D2,D 3), LC/MS /MS is recom ravinder d: order code 15258 (jayne ents >2yrs ). See Note 1 Note 1 For addit ional infor dilcia zamarripa refer to http: //enrico Pulido stDia gnost ics.c om/fa q/FAQ 199 (This link is being provi ded for infor chacho lee/ carter forrest purpo ses only. ) Not Available [facility] [address] [address] , [place], [address], 07/30/2023 14:50:43 07/28/19 24 07/30/2023 HEMOG LOBIN A1C hemoglobin A1C 5.3 %_of_ total _HGB <5.7 normal For the purpo se of scree feng for the prese nce of diabe pancho: <5.7% Consi stent with the absen ce of diabe pancho 5.7-6 .4% Consi stent with incre ased risk for diabe pancho (pred iabet es) > or =6.5% Consi stent with diabe pancho This assay resul t is consi stent with a decre ased risk of diabe pancho. Curre ntly, no conse nsus exist s jun cuellar use of hemog lobin A1c for diagn osis of diabe pancho in child juan antonio. Accor ding to Ameri can Diabe pancho Assoc iatio n (ADA) guide lines , hemog lobin A1c <7.0% repre sents optim al contr ol in non-p regna nt diabe tic patie nts. Diffe rent metri cs may apply to speci fic patie nt popul ation s. Stand ards of Medic al Care in Diabe pancho(A DA). This test was perfo rmed on the [employer] c8000 platf orm. Pleas e be advis ed that [facility] will move hemog lobin A1c testi ng to the [employer] platf orm soon. In gener al, direc t gorge rison of the resul ts from diffe rent platf orms is not recom ravinder d. Not Available [facility] [address] [place], [address], 07/30/2023 14:50:44 07/28/19 24 07/30/2023 HELIC OBACT ER PYLOR I AG, EIA, STOOL helicobacter pylori Ag, EIA, stool SEE NOTE HELIC OBACT ER PYLOR I AG, EIA, STOOL Micro Numbe r: [id number] Test Statu s: Final Speci men Sourc e: Stool Speci men Quali ty: Adequ ate H.pyl donnie Ag: Not Detec nieves Antim icrob ials, miranda n pump inhib itors , and bismu th prepa ratio ns inhib it H. pylor i and inges tion up to two weeks prior to testi ng may cause false negat felix resul ts. If clini goran indic ated the test shoul d be repea nieves on a new speci men obtai juan a two weeks after disco ntinu ing treat ment. Refer ence Range : Not Detec nieves Not Available [address], [address], 07/30/2023 14:50:45 07/25/19 24 tibia /fibu la 2 vws, [facility] [address] [place] [address] [phone] Patien t Name: LUNA VARGAS Access ion #: [id number] Sex: F : 1969 2 Dictat ed By: Rakesh Shepherd Attend ing Physic luis: STEPHANY GALICIA Orderi Physic luis: STEPHANY GALICIA Exam Date: 2023 15:45 PM Exam Name: XR TIBIA/ FIBULA LT 2V Admitt ing Diagno sis(es ): left tibia radiog raph CLINIC AL INDICA TION: pain TECHNI QUE: 2 radiog raphic views of the left tibia were obtain ed. Compar susana: none FINDIN GS: There is no eviden ce of acute fractu re or disloc ation. The visual ized joint space is well mainta ined. The alignm ent is anatom ical. Soft tissue s are unrema rkable . IMPRES ANGELIQUE: No acute fractu re or disloc ation. Electr onical ly Signed by: Rakesh Shepherd at 2023 16:38: 23 PM Page 1 [id number] [facility] (Imaging) [address] [place], [address], 09/10/2023 17:32:24 10/02/19 24 XR, wrist , 3 or more view [facility] [address] [place] [id number] [phone] Patien t Name: LUNA VARGAS Access ion #: [id number] Sex: F : 1969 9 Dictat ed By: Dionne Cain Attend ing Physic luis: STEPHANY GALICIA Physic luis: STEPHANY GALICIA Exam Date: 2023 15:31 PM Exam Name: XR WRIST LT 3V+ Admitt ing Diagno sis(es ): CLINIC AL INDICA TION: pain TECHNI QUE: 4 radiog raphic views of the left wrist were obtain ed. Compar susana: none FINDIN GS/ IMPRES ANGELIQUE: There is no eviden ce of acute fractu re or disloc ation. There is modera te osteoa rthros is of the first carpom etacar pal joint. There is no radiop aque foreig n body. Electr onical ly Signed by: Dionne Cain at 2023 16:13: 53 PM Page 1 [email or web address] [facility] ([facility]) [address] [place], [address], 01/30/2024 17:05:52 10/02/19 24 XR, hand, 3 or more view [facility] [address] [place] [address] Patien t Name: LUNA VARGAS [facility] ion #: [id number] Sex: F : 1969 9 Dictat ed By: Dionne Cain Attend ing Physic luis: STEPHANY GALICIA Physic luis: STEPHANY GALICIA Exam Date: 2023 15:31 PM Exam Name: XR HAND RT 3V Admitt ing Diagno sis(es ): CLINIC AL INDICA TION: pain TECHNI QUE: 3 radiog raphic views of the right hand were obtain ed. Compar susana: none FINDIN GS/ IMPRES ANGELIQUE: There is no eviden ce of acute fractu re or disloc ation. The visual ized joint space is well mainta ined. The alignm ent is anatom ical. There is no radiop aque foreig n body. Electr onical ly Signed by: Dionne Cain at 2023 16:14: 39 PM Page 1 [email or web address] [facility]) [address] [place], [address], 01/30/2024 17:05:52 Result Notes None recorded. Problems Name Problem SNOMED Code Status Onset Date Resolution Date Notes Provider Name and Address Organization Details Recorded Time Insomnia 724328266 Active 2020 Not Available [facility] 3 13:52:35 Lumbar spondylosi s 858413265 Active 2020 Not Available [facility] 3 13:52:35 Type 2 diabetes mellitus without complicati on 534348211 Active 2020 Not Available [facility] 3 13:52:35 Multiple joint pain 16011297 Active 2020 Not Available [facility] 3 13:52:35 Osteoarthr itis 365531950 Active 2020 Not Available [facility] 3 13:52:35 Hypothyroi dism 85745496 Active 2020 Not Available [facility] 3 13:52:35 Hyperlipid emia 06210244 Active 2021 Not Available [facility] 3 13:52:35 Overactive urinary bladder 722397321 Active 2020 Not Available [facility] 3 13:52:35 Well controlled type 2 diabetes mellitus 371237378 Active 2022 Deana Castaneda MD [address], [address], [address] , [employer] 3 13:52:16 Thyroid nodule 585799991 Active 2022 LAVERNE Barrera, [employer] 3 09:38:31 Uncontroll ed type 2 diabetes mellitus 451506029 Active 2022 Deana Castaneda MD [address], [address], [place], [address] , [employer] 3 17:15:50 Gastroesop hageal reflux disease without esophagiti s 709239983 Active 2023 Corbin Galicia MD [address] [address], [place], [address] , [facility] 4 17:16:15 Pain of bilateral knee joints 4971428895410 04 Active 2023 Corbin Galicia MD [address] [address], [place], [address] , [facility] 4 17:17:37 Pain in left lower limb 757278708 Active 2023 Corbin Galicia MD [address] [address], [place], [address] , [facility] 4 17:19:00 Herpes labialis 4946502 Active 2023 Corbin Galicia MD [address] [address], [place], [address] , [facility] 4 17:36:48 Pain of left wrist 3034772777707 02 Active 2023 Corbin Galicia MD [address] [address], [place], [address] , [facility] 4 17:37:41 Pain in finger of right hand 8485670040547 09 Active 2023 Corbin Galicia MD [address] [address], [place], [address] , [facility] 4 17:38:41 Problem Notes Documentation Provider Name and Address Organization Details Recorded Time Endocrinology Note : S_[facility] ? ? [address], [facility] [address]RIPDLIP, Silvia (id #[id number], : 1970) Documents sent via fax will include the following message: This fax may contain sensitive and confidential personal health information that is being sent for the sole use of the intended recipient. Unintended recipients are directed to securely destroy any materials received. You are hereby notified that the unauthorized disclosure or other unlawful use of this fax or any personal health information is prohibited. To the extent patient information contained in this fax is subject to 42 CFR Part 2, this regulation prohibits unauthorized disclosure of these records. If you received this fax in error, please visit [email or web address] to notify the sender and confirm that the information will be destroyed. If you do not have internet access, please call to notify the sender and confirm that the information will be destroyed. Thank you for your attention and cooperation. [ID:[id number]][facility] Monitoring Division [address] [place] [address] , Date: 11/21/2022RE: Luna Christiano, : 1970, PT ID #[id number] [place] [facility], I would like to thank you for referring Luna Alvarado to our practice for consultation and evaluation of FU ON LABS B , on 11/21/2022. I have enclosed a copy of the office evaluation for your records. Once again, thank you for allowing me to participate in the care of this patient. Sincerely, Electronically Signed by: DEANA CASTANEDA MD Encounter Reason/Date FU ON LABS B 11/21/2022 - 03:45PM - [facility] [place] Problems:Reviewed Problems Thyroid nodule - Onset: 11/01/2022 Hypothyroidism - Onset: 10/20/2020 Type 2 diabetes mellitus without complication - Onset: 10/20/2020 Type II diabetes mellitus uncontrolled - Onset: 11/21/2022 Hyperlipidemia - Onset: 08/30/2021 Insomnia - Onset: 10/20/2020 Osteoarthritis - Onset: 10/20/2020 Multiple joint pain - Onset: 10/20/2020 Lumbar spondylosis - Onset: 10/20/2020 Overactive bladder - Onset: 10/20/2020 Type 2 diabetes mellitus well controlled - Onset: 08/12/2022 Allergies: Reviewed Allergies NKDA Medications: Reviewed Medications NameDate Source amitriptyline 25 mg tabletTAKE 1 TABLET BY MOUTH EVERY DAY AT SRTGGJD99/10/22?filled MIGRATION.[id number] atorvastatin 20 mg tabletTAKE 1 TABLET BY MOUTH EVERY OTHER DAY AT OZUHPVQ17/17/22?filled surescripts benzonatate 200 mg capsuleTAKE 1 CAPSULE BY MOUTH THREE TIMES DAILY FOR 10 DAYS11/30/21?filled MIGRATION.1910601878 BinaxNOW COVID-19 Ag Self Test kitTEST DIRECTED TODAY12/26/21?filled MIGRATION.[id number] busPIRone 15 mg tabletTAKE 1 TABLET BY MOUTH TWICE A DAY OBNDIM51/27/23?filled surescripts celecoxib 200 mg capsuleTAKE 1 CAPSULE BY MOUTH TWICE DAILY11/10/21?filled MIGRATION.4706795102 cephALEXin 500 mg capsuleTAKE 1 CAPSULE BY MOUTH TWICE DAILY FOR 7 DAYS06/29/22?filled surescripts cetirizine 10 mg capsuleTake by oral route., start 12/03/?start ed MIGRATION.[id number] cloNIDine HCL 0.1 mg tabletTAKE 1 TABLET BY MOUTH TWICE DAILY NUOTXR42/13/22?filled MIGRATION.[id number] clotrimazole-betamethasone 1 %-0.05 % topical creamAPPLY TO THE AFFECTED AREA TWICE DAILY FOR 2 WEEKS07/15/21?filled MIGRATION.4913837159 ergocalciferol (vitamin D2) 1,250 mcg (50,000 unit) capsuleTAKE 1 CAPSULE BY MOUTH 1 TIME A WEEK WITH FOOD06/06/22?filled surescripts estradioL 0.01% (0.1 mg/gram) vaginal creamINSERT 1 GRAM VAGINALLY TWICE A WEEK10/15/22?filled surescripts FLUoxetine 20 mg capsuleTAKE 1 CAPSULE BY MOUTH EVERY DAY IN THE RFWMGUX78/27/23?filled surescripts FLUoxetine 40 mg capsuleTAKE 1 CAPSULE BY MOUTH EVERY DAY IN THE XFCZEPB79/28/22?filled surescripts glimepiride 1 mg tabletTake 1 tablet(s) twice a day by oral route before meals for 90 days.11/21/22?prescribed Deana Castaneda MD ID NOW COVID-19 Test KitTEST DIRECTED TODAY12/01/21?filled MIGRATION.[id number] metFORMIN ER 500 mg tablet,extended release 24 hrTAKE 1 TABLET BY MOUTH EVERY DAY AT ZCSUGZ37/12/23?filled surescripts nystatin-triamcinolone 100,000 unit/g-0.1 % topical creamAPPLY TOPICALLY TO THE AFFECTED AREA TWICE DAILY08/30/21?filled MIGRATION.9952998966 OneTouch Delica Plus Lancet 33 gaugeTEST FASTING BLOOD SUGAR DAILY10/24/20?filled MIGRATION.[id number] OneTouch Verio Flex MeterTEST FASTING BLOOD SUGAR DAILY10/24/20?filled MIGRATION.0191952196 OneTouch Verio test stripsTEST FASTING BLOOD SUGAR DAILY10/24/20?filled MIGRATION.8631730339 oxyBUTYnin chloride ER 5 mg tablet,extended release 24 hrTAKE 1 TABLET BY MOUTH EVERY DAY10/13/22?filled surescripts pantoprazole 40 mg tablet,delayed releaseTAKE 1 TABLET BY MOUTH DAILY11/07/22?filled surescripts Synthroid 112 mcg tabletTake 1 tablet(s) every day by oral route in the morning for 90 days.11/21/22?prescribed Deana Castaneda MD Trulicity 3 mg/0.5 mL subcutaneous pen injectorInject 3 mg every week by subcutaneous route at dinner for 90 days.11/21/22?prescribed Deana Castaneda MD Vitamin D 50,000 unit capsuleTake by oral route., start ?start ed MIGRATION.[id number] zolpidem 5 mg tabletTAKE 1 TABLET BY MOUTH EVERY DAY AT PGJCQER86/20/23?filled surescripts zolpidem ER 6.25 mg tablet,extended release,multiphaseTAKE 1 TABLET BY MOUTH AT BEDTIME OHREHR81/02/22?filled surescripts Family History: Father - Diabetes mellitus ( age: 82) Mother - Diabetes mellitus (onset age: 80) ?? - Anxiety disorder (onset age: 80) Sister - Diabetes mellitus (onset age: 50) ?? - Disorder of thyroid gland (onset age: 50) Social History:Diet and ExerciseWhat type of diet are you following?: RegularDo you have any dietary restrictions?: NoWhat is your exercise level?: ModerateHome and EnvironmentWhere do you live?: TrailerDo you have smoke and carbon monoxide detectors in your home?: YesAre you passively exposed to smoke?: NoPublic Health and TravelHave you recently traveled abroad?: NoIn the 14 days before symptom onset, have you had close contact with a laboratory-confirmed COVID-19 while that case was ill?: NoIn the 14 days before symptom onset, have you had close contact with a person who is under investigation for COVID-19 while that person was ill?: NoSubstance UseDo you or have you ever smoked tobacco?: Never smokerHow much tobacco do you chew?: noneDo you or have you ever used e-cigarettes or vape?: Never used electronic cigarettesWhich illicit or recreational drugs have you used?: noneWhat is your level of alcohol consumption?: NoneWhat is your level of caffeine consumption?: ModerateAdvance DirectiveDo you have a medical power of quahogger?: NoMarriage and SexualityWhat is your relationship status?: MarriedLifestyleDo you wear a helmet when biking?: NoDo you use your seat belt or car seat routinely?: YesEducation and OccupationWhat is your 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 Since June her sugars have been higher. She is having yeast infection and not able to take the jardiance -caused this in the past. thyroid u/s from 11/08:6 mm right thyroid nodule She has no pain or pressure in her thyroid region. Sugars running over 150 mg/dL before mealsmid to high 100 mg/DL fastingno hypoglycemia labs from 11/11/22:a1c 7.8%microalbumin <6.8 ug/mgvit D 30.3 ng/mLFT4 of 1.17 ng/dLPTH 56.8 pg/mLcalcium 9.4 mg/dLglucose 190 mg/dLLFT highTSH of 1.950 uIU/mLTPO negFT3 of 2.5 pg/MLcalcitonin not completedReview of Systems:ROS as noted in the HPIPhysical ExamConstitutional:General Appearance: healthy-appearing, well-nourished, well-developed, not anxious/nervous, and no sweating. Level of Distress: no acute distress. Eyes:Lids and Conjunctivae: no discharge, pallor, lid lag, or periorbital edema and non-injected. Neck:Neck: supple, trachea midline, no masses, and full range of motion. Thyroid: no enlargement or nodules and non-tender. Neck vessels: no carotid bruits or thyroid bruits. Lymph Nodes: no anterior cervical LAD, posterior cervical LAD, submandibular LAD, submental LAD, preauricular LAD, or supraclavicular LAD. Cardiovascular:Apical Impulse: not displaced. Heart Auscultation: normal S1 and S2; no murmurs, rubs, or gallops; and regular rate and rhythm. Lungs:Auscultation: no wheezing, rales/crackles, or rhonchi and breath sounds normal, good air movement, and clear to auscultation. Psychiatric:Mental Status: normal mood and affect, no diffuse anxiety or paranoid ideations, and active and alert.Procedure DocumentationNone recordedAssessment/Plan1. Type II diabetes mellitus uncontrolled-A1C of 7.8% up from 6.3%- continue on trulicity but uptitrate to 3 mg once weekly along with metformin for insulin sensitization. Encouraged patient to test sugars prebreakfast and predinner and at times before bedtime to maintain log for review at return visit. Recommend she take her glimepiride on glucose scale according to glucose checks. If sugars are running under 100 mg/dL hold glimepiride, if 101-140 mg/dL take half tablet, if 141-180 mg/dL take full tablet and if over 180 mg/dL take 2 tablets for the full 2 mg of glimepiride up to twice daily before meals. If sugars are consistently over 180 mg/dL she was advised to contact clinic and notify me so we can modify changes. Patient advised to bring glucose meter at return visit for review. Discussed carb counting and how to read food labels. Recommended patient to utilize the diabetesHolganix.FOLUP from the ADA website to help with food preparation as this presents ideal carb content per meal so this will make carb counting much easier for patient. Recommended she incorporate natural insulin sensitizers such as pears, apples, cinnamon, rajat and sweet potatoes to help mobilize her endogenous insulin. Recommended up to 150 minutes of moderate level activity/exercise weekly.E11.65: Type 2 diabetes mellitus with hyperglycemia CMP, SERUM OR PLASMA HBA1C (HEMOGLOBIN A1C), BLOOD MICROALBUMIN/CREATININE, MASS RATIO, URINE Trulicity 3 mg/0.5 mL subcutaneous pen injector - Inject 3 mg every week by subcutaneous route at dinner for 90 days. ? Qty: (12)?0.5 mL syringe ? Refills: 1 ? Pharmacy: [facility] #[id number] glimepiride 1 mg tablet - Take 1 tablet(s) twice a day by oral route before meals for 90 days. ? Qty: (180)?tablet ? Refills: 1 ? Pharmacy: [facility] #[id number] 2. Hypothyroidism-FT4 low normal range- will uptitrate synthroid to 112 mcg daily. She was reminded to take her synthroid on empty stomach with glass of water and wait one hour to eat or have her coffee in morning and up to 4 hours if ever taking any heartburn or reflux medications to help optimize absorption. Discussed paleo like diet with restriction of GMOs to help with energy and to optimize absorption of vitamins and minerals and reduce inflammation. Spent up to 28 minutes preparing to see the patient (eg, review of tests), obtaining and/or reviewing separately obtained history, performing a medically appropriate examination and evaluation, counseling and educating the patient, ordering medications, tests, along with documenting clinical information in the electronic health record, independently interpreting results and communicating results to the patient. RTC in 4 months. Patient was provided a handwritten lab order which contains our fax number. If she chooses to go outside of the [email or web address] system to obtain labwork she was advised to provide our fax number and my information to the lab she will be obtaining labwork from in order to have her labs properly forwarded over for me to review so there is no loss of follow up due to use of outside network. She was also advised to contact our clinic informing us that she has completed her labwork so we are aware we will need to reach out to the appropriate laboratory to request her results be forwarded to us so I might have the ability to review and make further medical decision making in her case. She voiced understanding.E03.9: Hypothyroidism, unspecified T3, FREE, SERUM OR PLASMA TSH, SERUM OR PLASMA T4, FREE, SERUM Synthroid 112 mcg tablet - Take 1 tablet(s) every day by oral route in the morning for 90 days. ? Qty: (90)?tablet ? Refills: 1 ? CHRISTELLE: Y ? Pharmacy: [facility] #[id number] Return to Office Deana Castaneda MD for Follow Up 15 at [facility] on 02/06/2023 at 03:00 PM Corbin Galicia MD [address] [place] [address], [address], [facility] 07/11/2023 17:12:58 Endocrinology Note : [facility] ? ? [address], [place] [facility] [address]NMNBQMK, Silvia (id #[id number], : 1970) Documents sent via fax will include the following message: This fax may contain sensitive and confidential personal health information that is being sent for the sole use of the intended recipient. Unintended recipients are directed to securely destroy any materials received. You are hereby notified that the unauthorized disclosure or other unlawful use of this fax or any personal health information is prohibited. To the extent patient information contained in this fax is subject to 42 CFR Part 2, this regulation prohibits unauthorized disclosure of these records. If you received this fax in error, please visit [email or web address] to notify the sender and confirm that the information will be destroyed. If you do not have internet access, please call to notify the sender and confirm that the information will be destroyed. Thank you for your attention and cooperation. [ID:[id number]][facility] Monitoring Division [address] [place] [address] , Date: 02/06/2023RE: Lunajusten Alvarado, : 1970, PT ID #[id number] Adriana [facility]-, I would like to thank you for referring Luna Alvarado to our practice for consultation and evaluation of FU ON LABS , on 02/06/2023. I have enclosed a copy of the office evaluation for your records. Once again, thank you for allowing me to participate in the care of this patient. Sincerely, Electronically Signed by: DEANA CASTANEDA MD Encounter Reason/Date FU ON LABS 02/06/2023 - 03:00PM - [facility] [place] Problems:Reviewed Problems Thyroid nodule - Onset: 11/01/2022 Hypothyroidism - Onset: 10/20/2020 Type 2 diabetes mellitus without complication - Onset: 10/20/2020 Type II diabetes mellitus uncontrolled - Onset: 11/21/2022 Hyperlipidemia - Onset: 08/30/2021 Insomnia - Onset: 10/20/2020 Osteoarthritis - Onset: 10/20/2020 Multiple joint pain - Onset: 10/20/2020 Lumbar spondylosis - Onset: 10/20/2020 Overactive bladder - Onset: 10/20/2020 Type 2 diabetes mellitus well controlled - Onset: 08/12/2022 Allergies: Reviewed Allergies NKDA Medications: Reviewed Medications NameDate Source amitriptyline 25 mg tabletTAKE 1 TABLET BY MOUTH EVERY DAY AT YBNAFPI87/10/22?filled MIGRATION.[id number] atorvastatin 20 mg tabletTake 1 tablet every other day by oral route at bedtime for 90 days.12/06/22?filled surescripts benzonatate 200 mg capsuleTAKE 1 CAPSULE BY MOUTH THREE TIMES DAILY FOR 10 DAYS11/30/21?filled MIGRATION.[id number] busPIRone 15 mg tabletTAKE 1 TABLET BY MOUTH TWICE A DAY CALLKE96/21/23?filled surescripts celecoxib 200 mg capsuleTAKE 1 CAPSULE BY MOUTH TWICE DAILY11/10/21?filled MIGRATION.8676377973 cetirizine 10 mg capsuleTake by oral route., start ?start ed MIGRATION.[id number] cloNIDine HCL 0.1 mg tabletTAKE 1 TABLET BY MOUTH TWICE DAILY UOBWPU37/13/22?filled MIGRATION.[id number] clotrimazole-betamethasone 1 %-0.05 % topical creamAPPLY TO THE AFFECTED AREA TWICE DAILY FOR 2 WEEKS07/15/21?filled MIGRATION.[id number] ergocalciferol (vitamin D2) 1,250 mcg (50,000 unit) capsuleTAKE 1 CAPSULE BY MOUTH 1 TIME A WEEK WITH FOOD06/06/22?filled surescripts estradioL 0.01% (0.1 mg/gram) vaginal creamINSERT 1 GRAM VAGINALLY TWICE A WEEK10/15/22?filled surescripts FLUoxetine 20 mg capsuleTAKE 1 CAPSULE BY MOUTH EVERY DAY IN THE VHOCCXX80/21/23?filled surescripts glimepiride 2 mg tabletTake 1 tablet(s) twice a day by oral route before meals for 90 days.02/06/23?prescribed Deana Castaneda MD metFORMIN ER 500 mg tablet,extended release 24 hrTAKE 1 TABLET BY MOUTH EVERY DAY AT RLITGE31/12/23?prescribe d Deana Castaneda MD Mounjaro 5 mg/0.5 mL subcutaneous pen injectorInject 5 mg every week by subcutaneous route at dinner for 90 days.02/06/23?prescribed Deana Castaneda MD nystatin-triamcinolone 100,000 unit/g-0.1 % topical creamAPPLY TOPICALLY TO THE AFFECTED AREA TWICE DAILY08/30/21?filled MIGRATION.[id number] OneTouch Delica Plus Lancet 33 gaugeTEST FASTING BLOOD SUGAR DAILY10/24/20?filled MIGRATION.[id number] OneTouch Verio Flex MeterTEST FASTING BLOOD SUGAR DAILY10/24/20?filled MIGRATION.[id number] OneTouch Verio test stripsTEST BLOOD SUGAR TWICE DAILY BEFORE MEALS02/06/23?prescribed Deana Castaneda MD oxyBUTYnin chloride ER 5 mg tablet,extended release 24 hrTAKE 1 TABLET BY MOUTH EVERY DAY01/15/23?filled surescripts pantoprazole 40 mg tablet,delayed releaseTAKE 1 TABLET BY MOUTH DAILY12/06/22?filled surescripts Synthroid 112 mcg tabletTake 1 tablet(s) every day by oral route in the morning for 90 days.02/06/23?prescribed Deana Castaneda MD Vitamin D 50,000 unit capsuleTake by oral route., start ?start ed MIGRATION.[id number] zolpidem 5 mg tabletTAKE 1 TABLET BY MOUTH EVERY DAY AT MHVKJXV62/10/23?filled surescripts Family History: Father - Diabetes mellitus ( age: 82) Mother - Diabetes mellitus (onset age: 80) ?? - Anxiety disorder (onset age: 80) Sister - Diabetes mellitus (onset age: 50) ?? - Disorder of thyroid gland (onset age: 50) Social History:Home and EnvironmentWhere do you live?: TrailerDo you have smoke and carbon monoxide detectors in your home?: YesAre you passively exposed to smoke?: NoSubstance UseDo you or have you ever smoked tobacco?: Never smokerWhich illicit or recreational drugs have you used?: noneDo you or have you ever used e-cigarettes or vape?: Never used electronic cigarettesHow much tobacco do you chew?: noneWhat is your level of alcohol consumption?: NoneWhat is your level of caffeine consumption?: ModerateLifestyleDo you wear a helmet when biking?: NoDo you use your seat belt or car seat routinely?: YesEducation and OccupationWhat is 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 TravelHave you recently traveled abroad?: NoIn the 14 days before symptom onset, have you had close contact with a laboratory-confirmed COVID-19 while that case was ill?: NoIn the 14 days before symptom onset, have you had close contact with a person who is under investigation for COVID-19 while that person was ill?: NoDiet and ExerciseWhat type of diet are you following?: RegularDo you have any dietary restrictions?: NoWhat is your exercise level?: ModerateAdvance DirectiveDo you have a medical power of quahogger?: NoMarriage and SexualityWhat is your relationship status?: MarriedGender Identity and LGBTQ IdentityGender identity: Identifies as FemaleAssigned sex at : FemaleSurgical History Hysterectomy - 2002 Additional HistoryNone recordedHistory of Present Illness:52 yo female comes in for follow up in management of uncontrolled type 2 DM (A1C of 7.8%), dyslipidemia and hypothyroidism. last seen in October at that time we had patient continue on trulicity but uptitrate to 3 mg once weekly along with metformin for insulin sensitization. we added glimepiride scale we continued synthroid 112 mcg daily and statin therapy. She has gained 16 pounds in the last 1.5 years. She is noticing more abdominal discomfort on the 3 mg dose and not with the 1.5 mg trulicity- she has no nausea or vomiting on the medication. She is taking her glimepiride after her meals and postmeal sugars high over 180 mg/dL. She stopped taking her metformin but not advised to do so. She does have hx of yeast infections. labs from 01/31/23:FT3 of 2.6 pg/mLglucose 159 mg/dlCr normalTSH of 4.830 uIU/mlglucose 116 mg/dLLFT [id number] 7.8%microalbumin <6.8 ug/mgTPO negReview of Systems:ROS as noted in the HPIPhysical ExamConstitutional:General Appearance: healthy-appearing, well-nourished, well-developed, not anxious/nervous, and no sweating. Level of Distress: no acute distress. Eyes:Lids and Conjunctivae: no discharge, pallor, lid lag, or periorbital edema and non-injected. Neck:Neck: supple, trachea midline, no masses, and full range of motion. Thyroid: no enlargement or nodules and non-tender. Neck vessels: no carotid bruits or thyroid bruits. Lymph Nodes: no anterior cervical LAD, posterior cervical LAD, submandibular LAD, submental LAD, preauricular LAD, or supraclavicular LAD. Cardiovascular:Apical Impulse: not displaced. Heart Auscultation: normal S1 and S2; no murmurs, rubs, or gallops; and regular rate and rhythm. Lungs:Auscultation: no wheezing, rales/crackles, or rhonchi and breath sounds normal, good air movement, and clear to auscultation. Psychiatric:Mental Status: normal mood and affect, no diffuse anxiety or paranoid ideations, and active and alert.Procedure DocumentationNone recordedAssessment/Plan1. Type II diabetes mellitus uncontrolled-A1C of 7.8%- will transition off trulicity as this has not helped with overall insulin resistance or weight loss- will transition to lower dose as we have samples of 2.5 mg once weekly- she is aware to take for 4 weeks with large meal and titrate to 5 mg weekly thereafter if tolerated. Encouraged patient to test sugars prebreakfast and predinner and at times before bedtime to maintain log for review at return visit. Recommend she take her glimepiride on glucose scale according to glucose checks. If sugars are running under 100 mg/dL hold glimepiride, if 101-140 mg/dL take half tablet, if over 140 mg/dL take full tablet. If sugars are consistently over 180 mg/dL she was advised to contact clinic and notify me so we can modify changes. Patient advised to bring glucose meter at return visit for review. Restart metformin for insulin sensitization. Refer to endocrinology per patient request.E11.65: Type 2 diabetes mellitus with hyperglycemia Mounjaro 5 mg/0.5 mL subcutaneous pen injector - Inject 5 mg every week by subcutaneous route at dinner for 90 days. ? Qty: (12)?0.5 mL syringe ? Refills: 1 ? Pharmacy: [facility] #[id number] glimepiride 2 mg tablet - Take 1 tablet(s) twice a day by oral route before meals for 90 days. ? Qty: (180)?tablet ? Refills: 1 ? Pharmacy: [facility] #[id number] metformin ER 500 mg tablet,extended release 24 hr - TAKE 1 TABLET BY MOUTH EVERY DAY AT DINNER ? Qty: (90)?tablet ? Refills: 1 ? Pharmacy: [facility] #[id number] OneTouch Verio test strips - TEST BLOOD SUGAR TWICE DAILY BEFORE MEALS ? Qty: (180)?strip ? Refills: 2 ? Pharmacy: [facility] #[id number] ? Note to Pharmacy: patient has one touch reveal meter please provide lancets and strips for this thank you ONETOUCH VERIO LANCETS - ? test sugars twice daily before meals x 90 days ? Qty: 180 Units ? Refills: 3 ? Supplier: [facility] #[id number] ENDOCRINOLOGY REFERRAL - ?Schedule Within: provider's discretion 2. Hypothyroidism-FT4 normal range- continue synthroid at 112 mcg daily. She was reminded to take her synthroid on empty stomach with glass of water and wait one hour to eat or have her coffee in morning and up to 4 hours if ever taking any heartburn or reflux medications to help optimize absorption. Discussed paleo like diet with restriction of GMOs to help with energy and to optimize absorption of vitamins and minerals and reduce inflammation. Spent up to 25 minutes preparing to see the patient (eg, review of tests), obtaining and/or reviewing separately obtained history, performing a medically appropriate examination and evaluation, counseling and educating the patient, ordering medications, tests, along with documenting clinical information in the electronic health record, independently interpreting results and communicating results to the patient. Patient can be followed by PCP - she/he is aware of my resignation and last day of March 09. If needed his/her PCP can refer patient to another [facility] tech in the area. All questions /concerns answered and refills necessary at visit today.E03.9: Hypothyroidism, unspecified Synthroid 112 mcg tablet - Take 1 tablet(s) every day by oral route in the morning for 90 days. ? Qty: (90)?tablet ? Refills: 1 ? CHRISTELLE: Y ? Pharmacy: [facility] Return to Office Patient will return to the office as needed Corbin Galicia MD [address] [facility], [address], [place], [address], [place] [facility] [place] [facility] 07/11/2023 17:12:58 Procedures Surgical History Date Name Laterality Status Provider Name and Address Organization Details Recorded Time 05/18/20 21 Date of Last Pap Smear completed Not Available [facility] 07/26/2022 13:51:55 Hyste[facility] completed Not [facility] 07/26/[facility]22 13:51:56 Imaging Results Imaging Date Name Status LastModified by Organiz ation Details LastModified Time 07/25/2023 tibia/fibu la 2 vws, left completed [email or web address] [facility] ([facility] [address] [place], [address], 09/10/2023 17:32:24 10/02/2023 XR, wrist, 3 or more view completed [id number] [facility] [address] [place], [address], 01/30/2024 17:05:52 10/02/2023 XR, hand, 3 or more view completed [id number] [facility] [address] [place], [address], 01/30/2024 17:05:52 Procedure Notes None recorded. Medical Equipment None Reported. Allergies No known drug allergies Medications Name Sig Start Date Stop Date Status Note LastModified by Organization Details LastModified Time quetiapine 25 mg tablet TAKE 1 TABLET BY MOUTH EVERY DAY AT BEDTIME FOR 4 DAYS 08/30 completed Not Available Not Available Not Available celecoxib 200 mg capsule TAKE 1 CAPSULE BY MOUTH TWICE DAILY WITH FOOD NEEDED active Not Available Not Available No t Available fluoxetine 40 mg capsule TAKE 1 CAPSULE BY MOUTH EVERY DAY IN THE MORNING 02/06 completed Not Available Not Available Not Available cyclobenzap rine 10 mg tablet TAKE 1 TABLET BY MOUTH EVERY 8 HOURS NEEDED. CUT IN HALF IF TOO SEDATING. active Not Available Not Available No t Available hydroxyzine pamoate 100 mg capsule TAKE 1 CAPSULE BY MOUTH TWICE DAILY NEEDED 11/21 completed Not Available Not Available Not Available amoxicillin 500 mg capsule TAKE ONE CAPSULE BY MOUTH THREE TIMES DAILY UNTIL ALL TAKEN 07/11 completed Not Available Not Available Not Available metformin 500 mg tablet TAKE 1 TABLET BY MOUTH DAILY active Not Available Not Available No t Available venlafaxine ER 37.5 mg capsule,ext ended release 24 hr TAKE 1 CAPSULE BY MOUTH EVERY DAY IN THE MORNING FOR 7 DAYS 08/30 completed Not Available Not Available Not Available clonidine HCl 0.1 mg tablet TAKE 1 TABLET BY MOUTH TWICE DAILY NEEDED 11/19 completed Not Available Not Available Not Available prednisone 10 mg tablet 12/09 completed Not Available Not Available Not Available venlafaxine ER 75 mg capsule,ext ended release 24 hr active Not Available Not Available Not Available doxycycline hyclate 100 mg capsule TAKE 1 CAPSULE BY MOUTH TWICE DAILY FOR 10 DAYS 11/21 completed Not Available Not Available Not Available atorvastati n 20 mg tablet Take 1 tablet every day by oral route at bedtime for 90 days. 2023 active Not Available Not Available Not Avai lable clindamycin HCl 300 mg capsule TAKE 1 CAPSULE BY MOUTH FOUR TIMES DAILY UNTIL ALL TAKEN. 07/11 completed Not Available Not Available Not Available trazodone 50 mg tablet TAKE 1 TABLET BY MOUTH EVERY NIGHT 08/30 completed Not Available Not Available Not Available atorvastati n 10 mg tablet TAKE 1 TABLET BY MOUTH EVERY DAY AT BEDTIME active Not Available Not Available No t Available ibuprofen 800 mg tablet TAKE 1 TABLET BY MOUTH EVERY 4 TO 6 HOURS NEEDED FOR PAIN. DO NOT EXCEED 4 TABLETS IN 24 HOURS. 01/29 completed Not Available Not Available Not Available fluconazole 150 mg tablet TAKE 1 TABLET BY MOUTH NOW FOR 1 DOSE. REPEAT IN 3 DAYS active Not Available Not Available No t Available benzonatate 200 mg capsule TAKE 1 CAPSULE BY MOUTH THREE TIMES DAILY FOR 10 DAYS 07/11 completed Not Available Not Available Not Available valacyclovi r 1 gram tablet 12/03 completed Not Available Not Available Not Available hydrocodone 5 mg-acetamin ophen 325 mg tablet TAKE 1 TABLET BY MOUTH EVERY 4 TO 6 HOURS NEEDED FOR PAIN 07/11 completed Not Available Not Available Not Available meloxicam 15 mg tablet 12/03 completed Not Available Not Available Not Available prednisone 20 mg tablet TAKE 2 TABLETS BY MOUTH EVERY DAY WITH FOOD FOR 5 DAYS. DO NOT TAKE WITH ASPIRIN OR NSAIDS SUCH ALEVE OR IBUPROFEN ETC 07/11 completed Not Available Not Available Not Available Synthroid 100 mcg tablet Take 1 tablet every day by oral route. 07/11 completed Not Available Not Available Not Available hydroxyzine pamoate 50 mg capsule TAKE 1 CAPSULE BY MOUTH THREE TIMES DAILY NEEDED 08/28 completed Not Available Not Available Not Available penicillin V potassium 500 mg tablet TAKE 1 TABLET BY MOUTH FOUR TIMES DAILY 11/21 completed Not Available Not Available Not Available metronidazo le 500 mg tablet TAKE 1 TABLET BY MOUTH EVERY 8 HOURS UNTIL ALL TAKEN active Not Available Not Available No t Available acetaminoph en 300 mg-codeine 30 mg tablet TAKE 1 TABLET BY MOUTH EVERY 4 TO 6 HOURS NEEDED FOR PAIN. 07/11 completed Not Available Not Available Not Available valacyclovi r 500 mg tablet TAKE 1 TABLET BY MOUTH EVERY DAY DIRECTED active Not Available Not Available No t Available omeprazole 40 mg capsule,del ayed release TAKE 1 CAPSULE BY MOUTH EVERY DAY 11/21 completed Not Available Not Available Not Available tramadol 50 mg tablet TAKE 1 TABLET BY MOUTH EVERY 4-6 HOURS NEEDED FOR PAIN 11/21 completed Not Available Not Available Not Available quetiapine 100 mg tablet TAKE 1 TABLET BY MOUTH EVERY DAY AT BEDTIME FOR 4 DAYS 08/30 completed Not Available Not Available Not Available amoxicillin 500 mg tablet 01/29 completed Not Available Not Available Not Available glimepiride 2 mg tablet TAKE 1 TABLET BY MOUTH TWICE DAILY BEFORE MEALS active Not Available Not Available No t Available glimepiride 1 mg tablet TAKE 1 TABLET BY MOUTH TWICE DAILY BEFORE MEALS active Not Available Not Available No t Available levothyroxi ne 75 mcg tablet 11/21 completed Not Available Not Available Not Available prednisone 10 mg tablets in a dose pack Take 1 tab by mouth, 3 times a day for 3 daysTake 1 tab by mouth 2 times a day for 2 daysTake 1 tab by mouth once a day for 1 day 08/30 completed Not Available Not Available Not Available levothyroxi ne 88 mcg tablet TAKE 1 TABLET BY MOUTH EVERY DAY 11/21 completed Not Available Not Available Not Available alprazolam 0.5 mg tablet active Not Available Not Available Not Available propranolol 40 mg tablet TAKE 1 TABLET BY MOUTH TWICE DAILY NEEDED 11/21 completed Not Available Not Available Not Available amitriptyli ne 25 mg tablet TAKE 1 TABLET BY MOUTH EVERY DAY AT BEDTIME 11/19 completed Not Available Not Available Not Available trazodone 100 mg tablet TAKE 1 TABLET BY MOUTH EVERY DAY AT BEDTIME 08/30 completed Not Available Not Available Not Available Kenalog 10 mg/mL suspension for injection In office injection administe red by the provider 08/30 completed [facility]: [phone] Not Available Not Available Not Available cephalexin 500 mg capsule TAKE 1 CAPSULE BY MOUTH TWICE DAILY FOR 7 DAYS 02/06 completed Not Available Not Available Not Available pantoprazol e 40 mg tablet,latosha yed release TAKE 1 TABLET BY MOUTH DAILY QAM 2023 active Not Available Not Available Not Avai lable trazodone 150 mg tablet 11/21 completed Not Available Not Available Not Available clotrimazol e-betametha sone 1 %-0.05 % topical cream active Not Available Not Available Not Available nystatin-tr iamcinolone 100,000 unit/g-0.1 % topical cream active Not Available Not Available Not Available oxybutynin chloride ER 5 mg tablet,exte nded release 24 hr TAKE 1 TABLET BY MOUTH EVERY DAY active Not Available Not Available No t Available zolpidem 5 mg tablet TAKE 1 TABLET BY MOUTH EVERYDAY AT BEDTIME active Not Available Not Available No t Available Synthroid 112 mcg tablet Take 1 tablet every day by oral route in the morning for 90 days. 2022 active Not Available Not Available Not Avai lable ergocalcife rol (vitamin D2) 1,250 mcg (50,000 unit) capsule TAKE 1 CAPSULE BY MOUTH 1 TIME A WEEK WITH FOOD active Not Available Not Available No t Available diazepam 10 mg tablet TAKE 1 TABLET BY MOUTH AT BEDTIME AND 1 TABLET BY MOUTH 1 HOUR BEFORE APPOINTME NT 11/21 completed Not Available Not Available Not Available estradiol 0.01% (0.1 mg/gram) vaginal cream INSERT 1 GRAM VAGINALLY TWICE A WEEK active Not Available Not Available No t Available methylpredn isolone 4 mg tablets in a dose pack FOLLOW PACKAGE DIRECTION S 07/11 completed Not Available Not Available Not Available propranolol 20 mg tablet TAKE 1 TABLET BY MOUTH TWICE A DAY NEEDED active Not Available Not Available No t Available fluoxetine 20 mg capsule TAKE 1 CAPSULE EVERY DAY BY ORAL ROUTE IN THE MORNING FOR 90 DAYS, FOR FOR ANXIETY. active Not Available Not Available No t Available metformin ER 500 mg tablet,exte nded release 24 hr TAKE 1 TABLET BY MOUTH EVERY DAY AT DINNER 2022 active Not Available Not Available Not Avai lable Microlet Lancet USE D TO CHECK FASTING GLUCOSE 12/13 completed Not Available Not Available Not Available buspirone 15 mg tablet TAKE 1 TABLET TWICE A DAY BY ORAL ROUTE NEEDED FOR 90 DAYS, FOR FOR ANXIETY. active Not Available Not Available No t Available hydroxyzine pamoate 25 mg capsule TAKE 1 CAPSULE BY MOUTH THREE TIMES DAILY NEEDED 08/30 completed Not Available Not Available Not Available Vitamin D 50,000 unit capsule Take by oral route. 07/11 completed Not Available Not Available Not Available escitalopra m 10 mg tablet TAKE 1 TABLET BY MOUTH EVERY DAY AT BEDTIME FOR 7 DAYS 08/30 completed Not Available Not Available Not Available Premarin 0.625 mg/gram vaginal cream I 0.5 GRAM VAGINALLY TWICE A WK HS 12/03 completed Not Available Not Available Not Available mirtazapine 7.5 mg tablet TAKE 1 TABLET BY MOUTH EVERY DAY AT BEDTIME 11/21 completed Not Available Not Available Not Available ramelteon 8 mg tablet 11/21 completed Not Available Not Available Not Available zolpidem ER 6.25 mg tablet,exte nded release,mul tiphase TAKE 1 TABLET BY MOUTH AT BEDTIME NEEDED 02/06 completed Not Available Not Available Not Available buspirone active Not Available Not Erica ilable Not Available lidocaine (PF) 10 mg/mL (1 %) injection solution In office injection administe red by the provider 08/30 completed [facility]: [id number] [phone]- [phone] Not Available Not Available Not Available quetiapine 50 mg tablet TAKE 1 TABLET BY MOUTH EVERY DAY AT BEDTIME 08/30 completed Not Available Not Available Not Available GaviLyte-G 236 gram-22.74 gram-6.74 gram-5.86 gram oral solution TAKE DIRECTED 01/29 completed Not Available Not Available Not Available cetirizine 10 mg capsule Take by oral route. 2019 active Not Available Not Available Not Avai lable vilazodone 10 mg tablet TAKE 1 TABLET BY MOUTH EVERY DAY IN THE MORNING 11/21 completed Not Available Not Available Not Available OneTouch Verio test strips TEST BLOOD SUGAR TWICE DAILY BEFORE MEALS active Not Available Not Available No t Available Jardiance 25 mg tablet 11/21 completed Not Available Not Available Not Available Trulicity 1.5 mg/0.5 mL subcutaneou s pen injector Inject 1.5 mg every week by sub-q route. 07/11 completed Not Available Not Available Not Available Trulicity 0.75 mg/0.5 mL subcutaneou s pen injector ADMINISTE R 0.75 MG UNDER THE SKIN EVERY WEEK AT DINNER 11/21 completed Not Available Not Available Not Available OneTouch Verio Flex Meter TEST FASTING BLOOD SUGAR DAILY active Not Available Not Available No t Available OneTouch Delica Plus Lancet 33 gauge TEST FASTING BLOOD SUGAR DAILY active Not Available Not Available No t Available OneTouch Delica Plus Lancet 30 gauge USE TO TEST SUGARS TWICE DAILY BEFORE MEAL 2024 active Not Available Not Available Not Avai lable Rybelsus 7 mg tablet TAKE 1 TABLET BY MOUTH EVERY DAY 11/21 completed Not Available Not Available Not Available Rybelsus 3 mg tablet TAKE 1 TABLET BY MOUTH EVERY DAY FOR 12 DAYS AND DISCARD REMAINDER 11/21 completed Not Available Not Available Not Available ID NOW COVID-19 Test Kit 07/11 completed Not Available Not Available Not Available Trulicity 3 mg/0.5 mL subcutaneou s pen injector ADMINISTE R 3 MG UNDER THE SKIN EVERY WEEK AT DINNER 02/06 completed Not Available Not Available Not Available BinaxNOW COVID-19 Ag Self Test kit TEST DIRECTED TODAY 02/06 completed Not Available Not Available Not Available Mounjaro 5 mg/0.5 mL subcutaneou s pen injector ADMINISTE R 5 MG UNDER THE SKIN EVERY WEEK DIRECTED active Not Available Not Available No t Available Vitals Date Recorded Body height Body mass index (BMI) Body weight Body temperature Heart rate Systolic blood pressure Diastolic blood pressure Provider Name and Address Organization Details Last Updated DateTime 3 152.4 cm 33.7 kg/m2 87710.3 2 g 98 [degF] 95 /min 129 mm[Hg] 80 mm[Hg] LAVERNE Laurent [facility] [employer] [facility] 3 16:48:54 Date Recorded Body height Body mass index (BMI) Body weight Body temperature Respiratory rate Heart rate Systolic blood pressure Diastolic blood pressure Provider Name and Address Organization Details Last Updated DateTime 3 152.4 cm 33.4 kg/m2 31574.5 8 g 97.7 [degF] 14 /min 82 /min 112 mm[Hg] 72 mm[Hg] Loan Mayberry RN [facility] [employer] [facility] 3 15:56:04 Date Recorded Body height Body mass index (BMI) Body weight Body temperature Heart rate Oxygen saturation Oxygen saturation in Arterial blood by Pulse oximetry Systolic blood pressure Diastolic blood pressure Provider Name and Address Organization Details Last Updated DateTime 4 152.4 cm 33.4 kg/m2 55292.6 5 g 97.8 [degF] 74 /min 98 % 98 % 108 mm[Hg] 70 mm[Hg] Dex Galaviz [facility] [employer] [facility] 4 17:10:41 Date Recorded Body height Body mass index (BMI) Body weight Body temperature Heart rate Oxygen saturation Oxygen saturation in Arterial blood by Pulse oximetry Systolic blood pressure Diastolic blood pressure Provider Name and Address Organization Details Last Updated DateTime 4 152.4 cm 32.9 kg/m2 21013.2 7 g 97.6 [degF] 78 /min 98 % 98 % 106 mm[Hg] 67 mm[Hg] Maranda Mabry MA [facility] [employer] [facility] 4 17:21:04 Date Recorded Body height Body mass index (BMI) Body weight Body temperature Heart rate Respiratory rate Oxygen saturation Oxygen saturation in Arterial blood by Pulse oximetry Systolic blood pressure Diastolic blood pressure Provider Name and Address Organization Details Last Updated DateTime 4 152.4 cm 31.7 kg/m2 70207.3 1 g 98.1 [degF] 80 /min 16 /min 98 % 98 % 110 mm[Hg] 72 mm[Hg] Dex Galaviz [facility] [employer] [facility] 17:03:48 Social History Question Answer Notes LastModified by Organizat ion Details LastModified Time Tobacco Smoking Status Never Smoker lu lynch, [facility] [employer] [facility] 11/21/2022 16:26:53 Do You Have An Advance Directive? No [id number] Information not available 07/26/2022 What Is Your Level Of Alcohol Consumption? None [id number] Information not available 07/26/2022 Do You Wear A Helmet When Biking? No [email or web address] Information not available 11/21/2022 What Is Your Level Of Caffeine Consumption? Moderate [id number] Information not available 07/26/2022 How Much Tobacco Do You Chew? None [id number] Information not available 07/26/2022 In The 14 Days Before Symptom Onset, Have You Had Close Contact With A Laboratory-confir med COVID-19 While That Case Was Ill? No [email or web address] Information not available 11/21/2022 In The 14 Days Before Symptom Onset, Have You Had Close Contact With A Person Who Is Under Investigation For COVID-19 While That Person Was Ill? No [email or web address] Information not available 11/21/2022 What Type Of Diet Are You Following? REGULAR [id number] Information not available 07/26/2022 Which Illicit Or Recreational Drugs Have You Used? None [email or web address] Information not available 11/21/2022 Do You Or Have You Ever Used E-cigarettes Or Vape? 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 No [email or web address] Information no t available 11/21/2022 What Is The Fluoride Status Of Your Home? Unknown [email or web address] Information not available 11/21/2022 Where Do You Live? [place] Information not available 11/21/2022 Do You Have A Medical Power Of Treatment Plant Operator? No [email or web address] Information not available 11/21/2022 Do You Have Any Pets? No [email or web address] Information not available 11/21/2022 What Is Your Relationship Status? [id number] Information not available 07/26/2022 Do You Use Your Seat Belt Or Car Seat Routinely? Yes [email or web address] Information not available 11/21/2022 Do You Have Smoke And Carbon Monoxide Detectors In Your Home? Yes Information not available 11/21/2022 Are You Passively Exposed To Smoke? No [email or web address] Information no t available 11/21/2022 Are There Any Smokers In Your House? No [email or web address] Information not available 11/21/2022 Do You Participate In Social Media? No [email or web address] Information not available 11/21/2022 Do You Feel Stressed (tense, Restless, Nervous, Or Anxious, Or Unable To Sleep At Night)? [id number] [email or web address] Information not available 11/21/2022 Have You Recently Traveled Abroad? No Information not available 11/21/2022 Do You Have Any Dietary Restrictions? No [email or web address] Information not available 11/21/2022 Sex: Female Functional Status Question Answer Note LastModified by Rent Here ion Details LastModified Time What is your exercise level? Moderate [id number] Information not available 07/26/2022 Mental Status None recorded. Family History Relationship Description Onset Age of this Age Resolved Age Notes LastModified by Organization Details LastModified Time Father Diabetes mellitus 82 [id number] Not available 07/26/2022 13:51:56 Mother Diabetes mellitus 80 [id number] Not available 07/26/2022 13:51:56 Mother Anxiety disorder 80 [id number] Not available 07/26/2022 13:51:56 Sister Diabetes mellitus 50 [id number] Not available 07/26/2022 13:51:56 Sister Disorder of thyroid gland 50 [id number] Not available 07/26/2022 13:51:56 Medical History Condition Response BLINDNESS N RHEUMATIC FEVER N KIDNEY STONES N BLADDER PROBLEMS N MRSA N OTHER # 1 N POLIO N LUNG DISEASE/DISORDER N HISTORY OF DRUG ABUSE N RADIATION / CHEMOTHERAPY N COPD N Other # 2 N BLOOD DISEASES N SURGERY N EAR OR HEARING PROBLEMS N MUMPS N SHINGLES N BOWEL PROBLEMS N FEMALE PROBLEMS / INFECTIONS N DEPRESSION (INCLUDING POST ) N STROKE/TIA N THYROID DISEASE N ULCERS N BENIGN PROSTATIC HYPERPLASIA N MEASLES N CERVICALGIA N HYPOTENSION N TB SKIN TEST N MYOCARDIAL INFARCTION N PARAPELGIA N OBESITY N GERD/NAUSEA N ANEURYSM N URINARY/BLADDER/KIDNEY PROBLEMS N CORONARY ARTERY DISEASE (CAD) N MENIERE'S DISEASE N ADDICTION CONCERNS N ENDOMETRIOSIS N USE OF BLOOD THINNERS N SKIN PROBLEMS N EMPHYSEMA N GASTROINTESTINAL DISORDER N MUSCLE,JOINT OR BONE PROBLEMS N GASTROINTESTINAL BLEEDING N BLOOD CLOTS N ASTHMA N CATARACTS N ERECTILE DYSFUNCTION N GI PROBLEMS N CHF N Low Testosterone N NEUROPATHY N INFERTILITY N AIDS/HIV N FRACTURES N CHEMOTHERAPY / RADIATION N VISION/EYE PROBLEMS N LIVER DISEASE N MALE HYPOGONADISM N HYPERTENSION N TOURETTE'S N ANXIETY DISORDER Y BLOOD TRANSFUSION N ANEMIA/BLOOD DISORDER N CHRONIC EAR INFECTIONS N BRONCHITIS N TUBERCULOSIS N GLAUCOMA N FOOT PROBLEM N DIVERTICULITIS N CHICKENPOX N SLEEP APNEA N ALLERGIES/HAYFEVER N INFECTIOUS DISEASE N HEART ARRHYTHMIA N PROSTATE N INSOMNIA N HIGH CHOLESTEROL / HYPERLIPIDEMIA Y HYPERTHYROIDISM N EYE PROBLEMS N EATING DISORDER N EDEMA N CHRONIC PAIN SYNDROME N CONSTIPATION N CAROTID BLOCKAGE N BACK / NECK PROBLEMS N HAVE YOU BEEN HOSPITALIZED OR SEEN IN [facility] IN THE PAST YEAR ? Y ATHEROSCLEROSIS N BREAST PROBLEMS N DIALYSIS N ECZEMA N FIBROMYALGIA N OSTEOPOROSIS N ARTHRITIS N NO SIGNIFICANT PAST MEDICAL HISTORY N APPENDICITIS N DIABETES, TYPE Y BAD TEETH N HEARTBURN / REFLUX N ADD/ADHD N AUTISM SPECTRUM DISORDER (ASD) N HEPATITIS / LIVER DISEASE N PULMONARY DISEASE N GOUT N SLEEP DISORDER N ALZHEIMER'S DISEASE N PAIN N HERPES N DEMENTIA N HEADACHES/MIGRAINES N SEIZURES/EPILEPSY N VASCULAR DISEASE N PACEMAKER N DIZZINESS N HEART DISEASE/HEART PROBLEMS N KIDNEY DISEASE N DEVELOPMENTAL OR BEHAVIORAL DISORDERS N MULTIPLE SCLEROSIS N SCARLET FEVER N MENTAL DISORDER/ILLNESS N CARDIAC ARRHYTHMIA N CANCER: SPECIFY N PNEUMONIA N ATRIAL FIBRILLATION N Gall Stones N PULMONARY EMBOLISM N AUTOIMMUNE DISEASE N Gynecological History Statement/Question Response Abnormal Pap N If Post Menopausal, Age at Menopause 32 Date of Last Pap Smear 05/18/2021 Current Control Method Hysterectom y Sexually Active? N Obstetrics History GPAL:G 0 P 0 0 0 0 Immunizations Vaccine Type Date Status Note Provider Nam e and Address Organization Details Recorded Time SARS-COV-2 (COVID-19) vaccine, UNSPECIFIED completed Not Available [facility] 07/26/2022 13:54:13 SARS-COV-2 (COVID-19) vaccine, UNSPECIFIED 04/22/202 1 completed Not Available [facility] 07/26/2022 13:54:13 Past Encounters Encounter ID Performer Location Encounter Start Date Encounter Closed Date Diagnosis/Indication Diagnosis SNOMED-CT Code Diagnosis ICD10 Code Diagnosis Note [id number] [facility] [address] [place] [address] 10/20/2020 00:00:00 10/20/2020 18:30:44 [id number] [facility] [address] [place] [address] 11/19/2020 00:00:00 11/19/2020 15:29:04 [id number] [facility] [address] [place] [address] 08/30/2021 00:00:00 08/30/2021 09:36:28 [id number] [facility] [place] [address] [place] [address] 09/30/2021 00:00:00 09/30/2021 15:50:44 [id number] [facility] [place] [address] [place] [address] 01/31/2022 00:00:00 01/31/2022 14:19:42 [id number] [facility] [address] [place], [place] [address] [address] [address] 12/23/2020 00:00:00 12/23/2020 20:24:02 [id number] [facility] [address] [place], [place] [address] [address] 02/01/2021 00:00:00 02/01/2021 18:52:17 [id number] [facility] [address] [place], [place] [address] [address] 03/01/2021 00:00:00 03/01/2021 10:24:44 [id number] [facility] [address] [address] 04/07/2021 00:00:00 04/07/2021 18:47:05 [id number] Deana Castaneda MD [facility] [place] [address] [place] [address] 11/21/2022 16:24:50 11/21/2022 17:32:36 Uncontrolled type 2 diabetes mellitus [id number] E11.65 A1C of 7.8% up from 6.3%- continue on trulicity but uptitrate to 3 mg once weekly along with metformin for insulin sensitizat ion. Encouraged patient to test sugars prebreakfa st and predinner and at times before bedtime to maintain log for review at return visit. Recommend she take her glimepirid e on glucose scale according to glucose checks. If sugars are running under 100 mg/dL hold glimepirid e, if 101-140 mg/dL take half tablet, if 141-180 mg/dL take full tablet and if over 180 mg/dL take 2 tablets for the full 2 mg of glimepirid e up to twice daily before meals. If sugars are consistent ly over 180 mg/dL she was advised to contact clinic and notify me so we can modify changes. Patient advised to bring glucose meter at return visit for review. Discussed carb counting and how to read food labels. Recommende d patient to utilize the diabetesfo BrandFiesta.FOLUP from the ADA website to help with food preparatio n as this presents ideal carb content per meal so this will make carb counting much easier for patient. 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 Recommende d up to 150 minutes of moderate level activity/e xercise weekly. Hypothyroidism 41843682 E03.9 FT4 low normal range- will uptitrate synthroid to 112 mcg daily. She was reminded to take her synthroid on empty stomach with glass of water and wait one hour to eat or have her coffee in morning and up to 4 hours if ever taking any heartburn or reflux medication s to help optimize absorption . Discussed paleo like diet with restrictio n of GMOs to help with energy and to optimize absorption of vitamins and minerals and reduce inflammati on. Spent up to 28 minutes preparing to see the patient (eg, review of tests), obtaining and/or reviewing separately obtained history, performing a medically appropriat e examinatio n and evaluation , counseling and educating the patient, ordering medication s, tests, along with documentin g clinical informatio n in the electronic health record, sangeetaen nelly interpreti ng results and communicat ing results to the patient. RTC in 4 months. Patient was provided a handwritte n lab order which contains our fax number. If she chooses to go outside of the [facility] system to obtain labwork she was advised to provide our fax number and my informatio n to the lab she will be obtaining labwork from in order to have her labs properly forwarded over for me to review so there is no loss of follow up due to use of outside network. She was also advised to contact our clinic informing us that she has completed her labwork so we are aware we will need to reach out to the appropriat e laboratory to request her results be forwarded to us so I might have the ability to review and make further medical decision making in her case. She voiced understand ing. [id number] Deana Castaneda MD [facility] [address] [place] [address] 02/06/2023 15:43:56 02/06/2023 16:37:40 Uncontrolled type 2 diabetes mellitus [id number] E11.65 A1C of 7.8%- will transition off trulicity as this has not helped with overall insulin resistance or weight loss- will transition to lower dose as we have samples of 2.5 mg once weekly- she is aware to take for 4 weeks with large meal and titrate to 5 mg weekly thereafter if tolerated. Encouraged patient to test sugars prebreakfa st and predinner and at times before bedtime to maintain log for review at return visit. Recommend she take her glimepirid e on glucose scale according to glucose checks. If sugars are running under 100 mg/dL hold glimepirid e, if 101-140 mg/dL take half tablet, if over 140 mg/dL take full tablet. If sugars are consistent ly over 180 mg/dL she was advised to contact clinic and notify me so we can modify changes. Patient advised to bring glucose meter at return visit for review. Restart metformin for insulin sensitizat ion. Refer to endocrinol ogy per patient request. Hypothyroidism 22752342 E03.9 FT4 normal range- continue synthroid at 112 mcg daily. She was reminded to take her synthroid on empty stomach with glass of water and wait one hour to eat or have her coffee in morning and up to 4 hours if ever taking any heartburn or reflux medication s to help optimize absorption . Discussed paleo like diet with restrictio n of GMOs to help with energy and to optimize absorption of vitamins and minerals and reduce inflammati on. Spent up to 25 minutes preparing to see the patient (eg, review of tests), obtaining and/or reviewing separately obtained history, performing a medically appropriat e examinatio n and evaluation , counseling and educating the patient, ordering medication s, tests, along with documentin g clinical informatio n in the electronic health record, independen tly interpreti ng results and communicat ing results to the patient. Patient can be followed by PCP - she/he is aware of my resignatio n and last day of March 09. If needed his/her PCP can refer patient to another endocrinol ogist in the area. All questions /concerns answered and refills necessary at visit today. [id number] Corbin Galicia MD [address] [address] 07/11/2023 16:55:49 07/11/2023 17:47:38 Adult health examination [id number] Z00.00 Type 2 elvin betes mellitus without complication 521041221 E11.9 Screening for disorder 210525253 Z13.9 Gastroesop hageal reflux disease without esophagitis 678708558 K21.9 Pain of bi lateral knee joints 9796114640 40105 M25.561 Pain in le ft lower limb 114909207 M79.605 Screening colonoscopy 44 1809592 Z12.11 [id number] Corbin Galicia MD [address] [address] 09/10/2023 17:13:32 09/10/2023 17:48:10 Type 2 diabetes mellitus without complication 299144631 E11.9 Gastroesop hageal reflux disease without esophagitis 107859096 K21.9 Pain of bi lateral knee joints 9076561816 00478 M25.561 Pain in le ft lower limb 707686632 M79.605 Hyperlipidemia 17187820 E78.5 Herpes labialis 7049501 B00.1 Pain of left wrist 74332 32338 15500 M25.532 Pain in fi nger of right hand 5694015982 46571 M79.715 [id number] Corbin Galicia MD [facility] [address] [address] 01/30/2024 16:55:33 01/30/2024 17:20:37 Hyperlipidemia 77750675 E78.5 Type 2 elvin betes mellitus without complication 792282303 E11.9 Gastroesop hageal reflux disease without esophagitis 754915525 K21.9 Pain of bi lateral knee joints 3532578772 04015 M25.561 Pain in le ft lower limb 863041044 M79.605 Herpes labialis 9480212 B00.1 Pain of left wrist 33506 42845 60787 M25.532 chronic Pain in fi nger of right hand 0344762801 80560 M79.644 chronic Health Concerns Section Related Observation LastModified by Organization Detai ls LastModified Time None Recorded Concern Status LastModified by Organization Details LastModified Time None Recorded Advance Directives Directive N: Payers Encounter Date Sequence Insurance Name Policy Number Policy Roblero Covered Member ID Roblero Member ID Guarantor Name 11/21/2022 1 [employer] [place] [facility] [employer] (PPO) [id number] Luna Christiano [id number] OI Luna Christiano 02/06/2023 1 [employer] Luna Alvarado [id number] OI Luna Alvarado 07/11/2023 1 [employer] Luna Alvarado [id number] OI Luna Alvarado 09/10/2023 1 [employer] Luna Alvarado [id number] OI Luna Alvarado 01/30/2024 1 [employer] Luna Alvarado [id number] OI Luna Alvarado Notes Date Note Type Note Provider Name and Address Organization Details Recorded Time 11/21/2022 text/html 52 yo female com es in for follow up in management of uncontrolled type 2 DM (A1C of 7.8% up from 6.3%), hypothyroidism and thyroid nodule last seen in Jan at that time we had patient increase trulicity to 1.5 mg SQ weekly along with metformin for insulin sensitization.we continued synthroid 100 mcg daily. Since June her sugars have been higher. She is having yeast infection and not able to take the jardiance -caused this in the past. thyroid u/s from 11/08:6 mm right thyroid nodule She has no pain or pressure in her thyroid region. Sugars running over 150 mg/dL before mealsmid to high 100 mg/DL fastingno hypoglycemia labs from 11/11/22:a1c 7.8%microalbumin <6.8 ug/mgvit D 30.3 ng/mLFT4 of 1.17 ng/dLPTH 56.8 pg/mLcalcium 9.4 mg/dLglucose 190 mg/dLLFT highTSH of 1.950 uIU/mLTPO negFT3 of 2.5 pg/MLcalcitonin not completed Deana Castaneda MD [address] [facility] [address], [place], [address], [place] [employer] 11/21/2022 21:28:53 02/06/2023 text/html 52 yo female com es in for follow up in management of uncontrolled type 2 DM (A1C of 7.8%), dyslipidemia and hypothyroidism. last seen in October at that time we had patient continue on trulicity but uptitrate to 3 mg once weekly along with metformin for insulin sensitization. we added glimepiride scale we continued synthroid 112 mcg daily and statin therapy. She has gained 16 pounds in the last 1.5 years. She is noticing more abdominal discomfort on the 3 mg dose and not with the 1.5 mg trulicity- she has no nausea or vomiting on the medication. She is taking her glimepiride after her meals and postmeal sugars high over 180 mg/dL. She stopped taking her metformin but not advised to do so. She does have hx of yeast infections. labs from 01/31/23:FT3 of 2.6 pg/mLglucose 159 mg/dlCr normalTSH of 4.830 uIU/mlglucose 116 mg/dLLFT [id number] 7.8%microalbumin <6.8 ug/mgTPO neg Deana Castaneda MD [address] [facility], [facility] [address], [place], [address], [facility] Monitoring Division 02/06/2023 16:49:46 07/11/2023 text/html Annual visit and ACV: C/o Lt lower leg area pain for last 2-3 months. Pt had blunt trauma at that time. Pt has never seen anyone for this. Pt has chronic b/l knee pain and is f/u with Ortho and got steroid shots with them. Pt is f/u with Psych at [facility] for her mood and is on meds by them. Denies any mood swings/SI/HI. Pt is f/u with Endo for her DM. Corbin Galicia MD [address] [facility], [facility] [address], [place], [address], [employer] [facility] Monitoring Division 07/11/2023 17:41:15 09/10/2023 text/html Pt is here for f /u on her annual labs & x-ray. Doing overall better. Denies any problem with meds. C/o Rt 5th finger and Lt wrist pain for last few weeks. Pt went to for this, but they did not do any x-ray. Pt has chronic b/l knee pain and is f/u with Ortho and got steroid shots with them. Pt is f/u with Psych at [facility] for her mood and is on meds by them. Denies any mood swings/SI/HI. Pt is f/u with Endo for her DM & hypothyroidism. Corbin Galicia MD [address] [facility], [facility] [address], [place], [address], [employer] [facility] Monitoring Division 09/10/2023 17:44:43 01/30/2024 text/html Pt is here for f /u on her lab, x-rays and chronic conditions. Doing overall better. Denies any problem with meds. Pt has not seen Hand surgeon yet. C/o Rt 5th finger and Lt wrist pain for last few months. Pt went to for this, but they did not do any x-ray. Pt has chronic b/l knee pain and is f/u with Ortho and got steroid shots with them. Pt is f/u with Psych at [facility] for her mood and is on meds by them. Denies any mood swings/SI/HI. Pt is f/u with Endo for her DM & hypothyroidism. Corbin Galicia MD [address] [facility], [facility] [address], [place], [address], [place] [employer] [facility] 01/30/2024 17:19:00 OBGyn Episode No OBEpisode recorded.
== END 2024-06-14 09:11 | disposition home or self-care (01) ==
LOC: ANHLAB 09:11
PROVIDERS: PCP Nurse Practitioner Family; Visit Provider Internal Medicine
DX: E78.5 Hyperlipidemia, unspecified (principal); E11.9 Type 2 diabetes mellitus without complications
CPT/HCPCS: 36415; 80053; 80061; 82043; 82306; 82607; 84439; 84443

== ENCOUNTER 2024-11-29 10:04 | Outpatient (CLI) | payer OTHER, SELFPAY ==
--- OUTSIDE RECORDS SUMMARY | 2024-11-29 10:09 | XMS_ITS | Data Portability ---
Author Organization [place] [facility], Main Office Address [address] [place] [address] Care Team Providers Care Kosher Sealer Name Role Phone CORBIN GALICIA Primary Care Provider [phone] Assessment Encounter Date Assessment Date Assessment LastModified [...] labs, x-ray. Will refer pt to Ophtho, Stevedoring Superintendent and GI. Meds as directed. Diet and exercise explained in detail. Educated pt about alarming symptoms to monitor at home and call us back Or get checked in ED. Pt verbalized understanding it. Cont f/u with Endo as per schedule. Cont f/u with Psych at [facility] as per schedule. HM: WWE - 12/17, normal as per pt. Cont f/u with Gyne as per schedule. Mammo - 12/17, normal as per pt. Colonoscopy - 12 yrs ago. Referred to GI. Flu - Pt declined. Tdap, Shingrix, Pneumo - At pharmacy/HD. F/u in 2-3 weeks. Annual labs in 07/22. [email or web address] Not available 07/11/2023 17:40:19 09/10/2023 09/10/2023 53 [...] with Ophtho as per schedule. F/u with Stevedoring Superintendent as per schedule. Cont f/u with Endo as per schedule. Cont f/u with Psych at [facility] as per schedule. HM: WWE - 12/17, normal as per pt. Cont f/u with Gyne as per schedule. Mammo - 12/17, normal as per pt. Colonoscopy - 12 yrs ago. Referred to GI. Flu - Pt declined. Tdap, Shingrix, Pneumo - At pharmacy/HD. F/u in 3 months. Lipids in 12/18. Annual labs in 07/22. Not available 09/10/2023 17:44:09 01/30/2024 01/30/2024 53 [...] with Ophtho as per schedule. F/u with Stevedoring Superintendent as per schedule. Cont f/u with Endo as per schedule. Cont f/u with Psych at [facility] as per schedule. HM: WWE - 12/17, normal as per pt. Cont f/u with Gyne as per schedule. Mammo - 12/17, normal as per pt. Colonoscopy - 12/18, normal as per pt. Cont f/u with GI as per schedule. Flu - Pt declined. Tdap, Shingrix, Pneumo - At pharmacy/HD. F/u in 3 months. Annual labs in 07/22. [email or web address] Not available 01/30/2024 17:18:17 Plan of Treatment Reminders Order Date Submit Date Provider Last Modified By Organization Details Last Modified Time Details Appointments New Patient 15 2024 03:30P Nara Martínez DPM Not available Not available Not available Lab lipid panel, serum 2023 024 [email or web address] [facility] (Lab), [address] [place], [address], 12/04/2023 08:26:42 vitamin D, 25-hydrox y, total, serum [address] (Lab), [address] [place], [address], 07/18/2023 14:00:33 glycohemo globin, total, blood [address] (Lab), [address] [place], [address], 07/18/2023 14:00:34 microalbu min, urine [address] (Lab), [address] [place], [address], 07/18/2023 14:00:34 H pylori Ag, qual immunoass ay, stool [address] (Lab), [address] [place], [address], 07/18/2023 14:00:34 uric acid, serum or plasma [address] (Lab), [address] [place], [address], 07/18/2023 14:00:34 CBC w/ auto diff [address] (Lab), [address] [place], [address], 07/18/2023 14:00:32 CMP, serum or plasma [address] (Lab), [address] [place], [address], 07/18/2023 14:00:33 lipid panel, serum [address] (Lab), [address] [place], [address], 07/18/2023 14:00:33 TSH, serum, reflex free T4 [address] (Lab), [address] [place], [address], 07/18/2023 14:00:33 urinalysi s complete, reflex culture [address] (Lab), [address] [place], [address], 07/18/2023 14:00:33 CMP, serum or plasma 2022 023 [facility] (Lab), [facility] [address], [address], 01/31/2023 13:28:01 HbA1c (hemoglob in A1c), blood 2022 023 [facility] (Lab), [facility] [address], [place], [address], 07/30/2023 14:50:44 microalbu min/creat inine, mass ratio, urine 2022 023 [facility] (Lab), [address] [place] [address] [address], [place], [address], 02/06/2023 16:32:50 T3, free, serum or plasma [email or web address] (Lab), [address] [place] [address] [address], [place], [address], 07/11/2023 17:12:58 TSH, serum or plasma 2022 023 [facility] (Lab), [address] [place] [address] [address], [place], [address], 02/07/2023 11:31:54 T4, free, serum 2022 023 [facility] (Lab), [address] [place] [address] [address], [place], [address], 07/30/2023 14:50:41 Referral hand surgeon referral - Please call patient to schedule an appointme nt. Thank you. 2023 024 [email or web address] Rony Pollard MD, 2 [facility], [facility] [address], [place], [address], 10/09/2023 08:39:37 gastroent erologist referral - Please call patient to schedule an appointme nt. 2023 024 [email or web address] Raina Israel MD, [address] [facility] [address], [address], 08/06/2023 14:26:52 podiatris t referral - Please call patient to schedule an appointme nt 2023 024 KENYA Martínez DPM, [address] [facility] [address], [place], [address], 07/16/2023 16:36:05 ophthalmo logist referral - Please call patient to schedule an appointme nt. 2023 024 [email or web address] [facility], [address], [place], [address], 08/09/2023 08:42:41 endocrino logy referral 2022 023 Elenita Courtney MD, [address], [place], [address], 07/11/2023 17:12:58 Procedures None recorded. Surgeries None recorded. Imaging XR, hand, 3 or more view 2023 024 [email or web address] 56 Not available 09/24/2023 08:56:39 XR, wrist, 3 or more view 2023 024 [email or web address] 56 Not available 09/24/2023 08:56:39 XR, tibia + fibula, 2 view 2023 024 [email or web address] Not available 07/26/2023 09:41:02 Medication Orders valacyclo vir 500 mg tablet 2023 024 [facility], [address], [place], [id number], 01/30/2024 17:10:05 pantopraz ole 40 mg tablet,de layed release 2023 024 [facility], [address], [place], [id number], 01/30/2024 17:10:05 atorvasta tin 20 mg tablet 2023 024 [place] [facility]51601, [address], [place], [id number], 01/31/2024 00:16:13 celecoxib 200 mg capsule 2023 024 [place] [facility] #11591, [address], [place], [id number], 01/30/2024 17:10:06 valacyclo vir 500 mg tablet 2023 024 [facility] #49547, [address], [place], [place], [id number], 09/10/2023 20:05:59 atorvasta tin 10 mg tablet 2023 024 [email or web address] [facility] #03543, [address], [place], [place], [id number], 01/30/2024 17:12:52 pantopraz ole 40 mg tablet,de layed release 2023 024 [facility] #16864, [address] [facility], [place], [place], [id number], 09/10/2023 20:06:08 celecoxib 200 mg capsule 2023 024 [facility] #43671, [address] [facility], [place], [place], [id number], 09/10/2023 19:59:48 pantopraz ole 40 mg tablet,de layed release 2023 024 [facility] #38269, [address] [facility], [place], [place], [id number], 07/11/2023 17:24:05 celecoxib 200 mg capsule 2023 024 [facility] #47169, [address] [facility], [place], [place], [id number], 07/11/2023 17:24:03 Mounjaro 5 mg/0.5 mL subcutane ous pen injector 2022 023 [facility] #51591, [address] [facility], [place], [place], [id number], 02/06/2023 16:25:16 glimepiri de 2 mg tablet 2022 023 [facility] #37816, [address] [facility], [place], [place], [id number], 02/06/2023 16:25:15 metformin ER 500 mg tablet,ex tended release 24 hr 2022 023 [facility], [address], [place], [id number], 02/06/2023 16:26:25 OneTouch Verio test strips 2022 023 [facility], [address], [place], [id number], 02/06/2023 16:29:56 Synthroid 112 mcg tablet 2022 023 [facility], [address], [address], [place], [address], 02/06/2023 16:26:53 Trulicity 3 mg/0.5 mL subcutane ous pen injector 2022 023 [email or web address] [facility] #85640, [address], [place], [id number], 02/06/2023 16:33:18 glimepiri de 1 mg tablet 2022 023 [email or web address] [facility] #90431, [address], [place], [id number], 02/06/2023 16:25:48 Synthroid 112 mcg tablet 2022 023 [email or web address] [facility], [address], [address], [place], [address], 11/24/2022 16:30:57 Patient TargetsNo targets recorded. Patient Instructions Encounter Date Encounter Id Patient Instructions Last Modified By Organization Details Last Modified Time 09/10/2023 [id number] high cholesterol : care instructions Not available 09/10/2023 17:44:20 01/30/2024 [id number] high cholesterol : care instructions [email or web address] Not available 01/30/2024 17:09:52 Reason for Referral Endocrinology Referral for U ncontrolled type 2 diabetes mellitus Referring Physician: Deana Castaneda, Endocrinology, Encounter Date: 02/06/2023 Asphalt Engineer Referral for Screening colonoscopy Please call patient to schedule an appointment. Referring Physician: Corbin Galicia [facility], Encounter Date: 07/11/2023 Stevedoring Superintendent Referral for Type 2 diabetes mellitus without complication Please call patient to schedule an appointment Referring Physician: Corbin Galicia [facility], Encounter Date: 07/11/2023 Kindergarten Aide Referral for Type 2 diabetes mellitus without complication Please call patient to schedule an appointment. Referring Physician: Corbin Galicia [facility], Encounter Date: 07/11/2023 Hand Surgeon Referral for Pa in of left wrist Lt wrist and Rt 5th finger pain, chronic Please call patient to schedule an appointment. Thank you. Referring Physician: Corbin Galicia [facility], Encounter Date: 09/10/2023 Results Created Date Observation Date Name Description Value Unit Range Abnormal Flag Note LastModifiedBy Organization Detail LastModifiedTime 07/28/1907/30/2023 LIPID PANEL , [place] cholesterol, total 194 mg/dL <200 normal Not Available [employer] [facility] [address] [place], [address], 07/30/2023 14:50:36 07/28/1907/30/2023 LIPID PANEL , [place] HDL cholesterol 37 mg/dL > or = 50 low Not Available [employer] [facility] [address] [place], [address], 07/30/2023 14:50:36 07/28/19 24 07/30/2023 LIPID PANEL , [place] triglyceride s 138 mg/dL <150 normal Not Available [facility] [address] [place], [address], 07/30/2023 14:50:36 07/28/19 24 07/30/2023 LIPID PANEL [...] lated using the Catie n-Hop kins calcu joy n, which is a valid ated novel makenzie schmid r accur acy than the Fried katt equat ion in the estim ation of LDL-C . Catie martinez SS et al. PAVITHRA. 2013; 310(1 9): 2061- 2068 (http ://ed ucati on.valuklik sonyaEdgeware. [employer]/f aq/FA Q164) Not Available [facility] [address], [place], [address], 07/30/2023 14:50:36 07/28/19 24 07/30/2023 LIPID PANEL , [place] chol/HDLC ratio 5.2 (calc ) <5.0 high Not Available [employer] [facility] [address] [place], [address], 07/30/2023 14:50:36 07/28/19 24 07/30/2023 LIPID PANEL , [place] non HDL cholesterol 157 mg/dL _(linda c) <130 high For patie nts with diabe pancho plus 1 major ASCVD risk facto r, treat ing to a non-H DL-C goal of <100 mg/dL (LDL- C of <70 mg/dL ) is consi dered a thera peuti c optio n. Not Available [facility] [address] [place], [address], 07/30/2023 14:50:36 07/28/19 24 07/30/2023 URIC ACID uric acid 4.6 mg/dL 2.5-7. 0 normal Thera maryam gilmore t for gout patie nts: <6.0 mg/dL Not Available [address] [address] [place], [address], 07/30/2023 14:50:37 07/28/19 24 07/30/2023 COMPR EHENS FELIX METAB OLIC PANEL glucose 95 mg/dL 65-99 normal Fasti ng refer ence inter royer Not Available [address] [place], [address], 07/30/2023 14:50:38 07/28/19 24 07/30/2023 COMPR EHENS FELIX METAB OLIC PANEL urea nitrogen (BUN) 10 mg/dL 7-25 normal Not Available [address], [address], 07/30/2023 14:50:38 07/28/19 24 07/30/2023 COMPR EHENS FELIX METAB OLIC PANEL creatinine 0.77 mg/dL 0.50-1 .03 normal Not Available [address], [address], 07/30/2023 14:50:38 07/28/19 24 07/30/2023 COMPR EHENS FELIX METAB OLIC PANEL eGFR 92 mL/mi n/1.7 3m2 > or = 60 normal Not Available [address], [address], 07/30/2023 14:50:38 07/28/19 24 07/30/2023 COMPR EHENS FELIX METAB OLIC PANEL BUN/creatini ne ratio SEE NOTE: (calc ) 6-22 Not Repor nieves: BUN and Creat inine are withi n refer ence range . Not Available [address] [place], [address], 07/30/2023 14:50:38 07/28/19 24 07/30/2023 COMPR EHENS FELIX METAB OLIC PANEL sodium 141 mmol/ L 135-14 6 normal Not Available [address], [address], 07/30/2023 14:50:38 07/28/19 24 07/30/2023 COMPR EHENS FELIX METAB OLIC PANEL potassium 4.3 mmol/ L 3.5-5. 3 normal Not Available [address], [address], 07/30/2023 14:50:38 07/28/19 24 07/30/2023 COMPR EHENS FELIX METAB OLIC PANEL chloride 105 mmol/ L 98-110 normal Not Available [address], [address], 07/30/2023 14:50:38 07/28/19 24 07/30/2023 COMPR EHENS FELIX METAB OLIC PANEL carbon dioxide 28 mmol/ L 20-32 normal Not Available [address], [address], 07/30/2023 14:50:38 07/28/19 24 07/30/2023 COMPR EHENS FELIX METAB OLIC PANEL calcium 9.8 mg/dL 8.6-10 .4 normal Not Available [address], [address], 07/30/2023 14:50:38 07/28/19 24 07/30/2023 COMPR EHENS FELIX METAB OLIC PANEL protein, total 7.5 g/dL 6.1-8. 1 normal Not Available [address], [address], 07/30/2023 14:50:38 07/28/19 24 07/30/2023 COMPR EHENS FELIX METAB OLIC PANEL albumin 4.6 g/dL 3.6-5. 1 normal Not Available [address] [address] [place], [address], 07/30/2023 14:50:38 07/28/19 24 07/30/2023 COMPR EHENS FELIX METAB OLIC PANEL globulin 2.9 g/dL_ (calc ) 1.9-3. 7 normal Not Available [address], [address], 07/30/2023 14:50:38 07/28/19 24 07/30/2023 COMPR EHENS FELIX METAB OLIC PANEL albumin/glob ulin ratio 1.6 (calc ) 1.0-2. 5 normal Not Available [address], [address], 07/30/2023 14:50:38 07/28/19 24 07/30/2023 COMPR EHENS FELIX METAB OLIC PANEL bilirubin, total 0.7 mg/dL 0.2-1. 2 normal Not Available [address] [address] [place], [address], 07/30/2023 14:50:38 07/28/19 24 07/30/2023 COMPR EHENS FELIX METAB OLIC PANEL alkaline phosphatase 63 U/L 37-153 normal Not Available [address] [address] [place], [address], 07/30/2023 14:50:38 07/28/19 24 07/30/2023 COMPR EHENS FELIX METAB OLIC PANEL AST 21 U/L 10-35 normal Not Available [address], [address], 07/30/2023 14:50:38 07/28/19 24 07/30/2023 COMPR EHENS FELIX METAB OLIC PANEL ALT 17 U/L 6-29 normal Not Available [address] [address] [place], [address], 07/30/2023 14:50:38 07/28/19 24 07/30/2023 CBC (INCL UDES DIFF/ PLT) white blood cell count 4.1 thous and/u L 3.8-10 .8 normal Not Available [address], [address], 07/30/2023 14:50:40 07/28/19 24 07/30/2023 CBC (INCL UDES DIFF/ PLT) red blood cell count 4.45 alex on/uL 3.80-5 .10 normal Not Available [address], [address], 07/30/2023 14:50:40 07/28/19 24 07/30/2023 CBC (INCL UDES DIFF/ PLT) hemoglobin 13.3 g/dL 11.7-1 5.5 normal Not Available [address], [address], 07/30/2023 14:50:40 07/28/19 24 07/30/2023 CBC (INCL UDES DIFF/ PLT) hematocrit 40.0 % 35.0-4 5.0 normal Not Available [address], [address], 07/30/2023 14:50:40 07/28/19 24 07/30/2023 CBC (INCL UDES DIFF/ PLT) MCV 89.9 fL 80.0-1 00.0 normal Not Available [address], [address], 07/30/2023 14:50:40 07/28/19 24 07/30/2023 CBC (INCL UDES DIFF/ PLT) MCH 29.9 pg 27.0-3 3.0 normal Not Available [address], [address], 07/30/2023 14:50:40 07/28/19 24 07/30/2023 CBC (INCL UDES DIFF/ PLT) MCHC 33.3 g/dL 32.0-3 6.0 normal Not Available [address], [address], 07/30/2023 14:50:40 07/28/19 24 07/30/2023 CBC (INCL UDES DIFF/ PLT) RDW 12.0 % 11.0-1 5.0 normal Not Available [address], [address], 07/30/2023 14:50:40 07/28/19 24 07/30/2023 CBC (INCL UDES DIFF/ PLT) platelet count 197 thous and/u L 140-40 0 normal Not Available [address], [address], 07/30/2023 14:50:40 07/28/19 24 07/30/2023 CBC (INCL UDES DIFF/ PLT) MPV 10.7 fL 7.5-12 .5 normal Not Available [address], [address], 07/30/2023 14:50:40 07/28/19 24 07/30/2023 CBC (INCL UDES DIFF/ PLT) absolute neutrophils 2677 cells /uL 1500-7 800 normal Not Available [address], [address], 07/30/2023 14:50:40 07/28/19 24 07/30/2023 CBC (INCL UDES DIFF/ PLT) absolute lymphocytes 1148 cells /uL 850-39 00 normal Not Available [address], [address], 07/30/2023 14:50:40 07/28/19 24 07/30/2023 CBC (INCL UDES DIFF/ PLT) absolute monocytes 213 cells /uL 200-95 0 normal Not Available [address], [address], 07/30/2023 14:50:40 07/28/19 24 07/30/2023 CBC (INCL UDES DIFF/ PLT) absolute eosinophils 41 cells /uL 15-500 normal Not Available [address], [address], 07/30/2023 14:50:40 07/28/19 24 07/30/2023 CBC (INCL UDES DIFF/ PLT) absolute basophils 21 cells /uL 0-200 normal Not Available [address], [address], 07/30/2023 14:50:40 07/28/19 24 07/30/2023 CBC (INCL UDES DIFF/ PLT) neutrophils 65.3 % normal Not Available [address], [address], 07/30/2023 14:50:40 07/28/19 24 07/30/2023 CBC (INCL UDES DIFF/ PLT) lymphocytes 28.0 % normal Not Available [facility] [address], [address], 07/30/2023 14:50:40 07/28/19 24 07/30/2023 CBC (INCL UDES DIFF/ PLT) monocytes 5.2 % normal Not Available [facility] [address], [address], 07/30/2023 14:50:40 07/28/19 24 07/30/2023 CBC (INCL UDES DIFF/ PLT) eosinophils 1.0 % normal Not Available [facility] [address], [address], 07/30/2023 14:50:40 07/28/19 24 07/30/2023 CBC (INCL UDES DIFF/ PLT) basophils 0.5 % normal Not Available [facility] [address], [address], 07/30/2023 14:50:40 07/28/19 24 07/30/2023 T4, FREE T4, free 1.4 NG/dL 0.8-1. 8 normal Not Available [employer] [address] [address] [place], [address], 07/30/2023 14:50:41 07/28/19 24 07/30/2023 TSH TSH 0.28 mIU/L low Refer ence Range > or = 20 Years 0.40- 4.50 Pregn stefany Range s First trime ster 0.26- 2.66 Secon d trime ster 0.55- 2.73 Third trime ster 0.43- 2.91 Not Available [facility] [address] [address] [place], [address], 07/30/2023 14:50:42 07/28/19 24 07/30/2023 VITAM IN [...] /MS is recom ravinder d: order code 47191 (jayne ents >2yrs ). See Note 1 Note 1 For addit ional infor dilcia zamarripa e refer to http: //enrico Ervin gnost ics.c om/fa q/FAQ 199 (This link is being provi ded for infor chacho lee/ carter forrest purpo ses only. ) Not Available [employer] [facility] [address] [place], [address], 07/30/2023 14:50:43 07/28/19 24 07/30/2023 HEMOG LOBIN A1C hemoglobin A1C 5.3 %_of_ total _HGB <5.7 normal For the purpo se of sudha toney for the prese nce of diabe pancho: [...] perfo rmed on the [employer] c8000 platf orm. Pleas e be advis ed that [facility] will move hemog lobin A1c testi ng to the [employer] platf orm soon. In gener al, direc t gorge rison of the resul ts from diffe rent platf orms is not recom ravinder d. Not Available [employer] [facility] [address] [place], [address], 07/30/2023 14:50:44 07/28/19 24 07/30/2023 HELIC OBACT ER PYLOR I AG, EIA, STOOL helicobacter pylori Ag, EIA, stool SEE NOTE HELIC OBACT ER PYLOR I AG, EIA, STOOL Micro Numbe r: [id number] Test Statu s: Final Speci men [...] Range : Not Detec nieves Not Available [address] [address] [place], [address], 07/30/2023 14:50:45 07/25/19 24 tibia /fibu la 2 vws, left [facility] [address] [place] [address] [phone] Patien t Name: LIANNE VARGAS Access ion #: [id number] Sex: F : 1969 2 Dictat ed By: Rakesh Shepherd Attend ing Physic luis: STEPHANY GALICIA Orderi ng Physic lius: STEPHANY GALICIA Exam Date: 2023 15:45 PM [...] at 2023 16:38: 23 PM Page 1 [email or web address] [facility] (Imaging) [address] [place], [address], 09/10/2023 17:32:24 10/02/19 24 XR, wrist , 3 or more view [facility] [address] [place] [address] Patien t Name: LIANNE VARGAS Access ion #: [id number] Sex: F : 1969 9 Dictat [...] at 2023 16:13: 53 PM Page 1 [facility] ([facility]) [address] [place], [address], 01/30/2024 17:05:52 10/02/19 24 XR, hand, 3 or more view [facility] [address] [place] [address] Patien t Name: LIANNE VARGAS Access ion #: [id number] Sex: F : 1969 9 Dictat [...] at 2023 16:14: 39 PM Page 1 [email or web address] [facility] ([facility]) [address] [place], [address], 01/30/2024 17:05:52 Result Notes Documentation Provider Name and Address Organization Details Recorded Time Xr, Wrist, 3 Or More View : [facility] [address] [place] [address] Patient Name: LIANNE ALVARADO Sex: F : 1970 Dictated By: Dionne Cain Attending Physician: CORBIN GALICIA Ordering Physician: CORBIN GALICIA Exam Date: 10/02/2023 15:31 PM Exam Name: XR WRIST LT 3V+ Admitting Diagnosis(es): CLINICAL INDICATION: pain TECHNIQUE: 4 radiographic views of the left wrist were obtained. Comparison: none FINDINGS/ IMPRESSION: There is no evidence of acute fracture or dislocation. There is moderate osteoarthrosis of the first carpometacarpal joint. There is no radiopaque foreign body. Page 1 Corbin Galicia MD [address], [address], [facility] [employer] [facility] 01/30/2024 17:05:52 Xr, Hand, 3 Or More View : [facility] [address] [place] [address] Patient Name: LIANNE ALVARADO Sex: F : 1970 Dictated By: Dionne Cain Attending Physician: CORBIN GALICIA Ordering Physician: CORBIN GALICIA Exam Date: 10/02/2023 15:31 PM Exam Name: XR HAND RT 3V Admitting Diagnosis(es): CLINICAL INDICATION: pain TECHNIQUE: 3 radiographic views of the right hand were obtained. Comparison: none FINDINGS/ IMPRESSION: There is no evidence of acute fracture or dislocation. The visualized joint space is well maintained. The alignment is anatomical. There is no radiopaque foreign body. Page 1 Corbin Galicia MD [address] [facility], [facility] [address], [place], [address], [facility] [employer] [facility] 01/30/2024 17:05:52 Problems Name Problem SNOMED Code Status Onset Date Resolution Date Notes Provider Name and Address Organization Details Recorded Time Insomnia 617612941 Active 2020 Not Available [facility] 3 13:52:35 Lumbar spondylosi s 056212332 Active 2020 Not Available [facility] 3 13:52:35 Type 2 diabetes mellitus without complicati on 217119607 Active 2020 Not Available [facility] 3 13:52:35 Pain of multiple joints 34285589 Active 2020 Not Available [facility] 3 13:52:35 Osteoarthr itis 997980737 Active 2020 Not Available [facility] 3 13:52:35 Hypothyroi dism 95196584 Active 2020 Not Available [facility] 3 13:52:35 Hyperlipid emia 25471088 Active 2021 Not Available [facility] 3 13:52:35 Overactive urinary bladder 782252363 Active 2020 Not Available [facility] 3 13:52:35 Well controlled type 2 diabetes mellitus 101629022 Active 2022 Deana Castaneda MD [address] [facility], [facility] [address], [place], [address] , [facility] [employer] [facility] 3 13:52:16 Thyroid nodule 943907998 Active 2022 LAVERNE Barrera, [facility] [employer] [facility] 3 09:38:31 Uncontroll ed type 2 diabetes mellitus 353099242 Active 2022 Deana Castaneda MD [address], [place], [address] , [facility] H[facility] [employer] [facility] 3 17:15:50 Gastroesop hageal reflux disease without esophagiti s [id number] Active 2023 Corbin Galicia MD [address], [place], [address] , [facility] [employer] [facility] 4 17:16:15 Pain of bilateral knee joints [id number] 04 Active 2023 Corbin Galicia MD [address], [place], [address] , [facility] [employer] [facility] 4 17:17:37 Pain in left lower limb 540806156 Active 2023 Corbin Galicia MD [address], [place], [address] , [facility] [employer] [facility] 4 17:19:00 Herpes labialis 8786786 Active 2023 Corbin Galicia MD [address], [place], [address] , [facility] [employer] [facility] 4 17:36:48 Pain of left wrist [id number] 02 Active 2023 Corbin Galicia MD [address], [place], [address] , [facility] [employer] [facility] 4 17:37:41 Pain in finger of right hand 8594180688729 09 Active 2023 Corbin Galicia MD [address], [place], [address] , [facility] [employer] [facility] 4 17:38:41 Problem Notes Documentation Provider Name and Address Organization Details Recorded Time Endocrinology Note : [facility] [address], [facility] [address]AIRCJIP, Silvia (id #[id number], : 1970) Documents sent via fax will [...] received this fax in error, please visit [email or web address] to notify the sender and confirm that the information will be destroyed. If you do not have internet access, please call to notify the sender and confirm that the information will be destroyed. Thank you for your attention and cooperation. [ID:[id number]][facility] [employer] [place] [address] [place] [address] , Date: 11/21/2022RE: Liannejusten Alvarado, : 1970, PT ID #[id number] [facility], I would like to thank you for referring Lianne Olmsteadira to our practice for consultation and evaluation of FU ON LABS B , on 11/21/2022. I have enclosed a copy of the office evaluation for your records. Once again, thank you for allowing me to participate in the care of this patient. Sincerely, Electronically Signed by: DEANA CASTANEDA MD Encounter Reason/Date FU ON LABS B 11/21/2022 - 03:45PM - [facility] Moisés [place] Problems:Reviewed Problems Thyroid nodule - Onset: [...] 1 TABLET BY MOUTH EVERY DAY AT SJVZIWS52/10/22 filled MIGRATION.[id number] atorvastatin 20 mg tabletTAKE 1 TABLET BY MOUTH EVERY OTHER DAY AT KXREIAJ02/17/22 filled surescripts benzonatate 200 mg capsuleTAKE 1 CAPSULE BY MOUTH THREE TIMES DAILY FOR 10 DAYS11/30/21 filled MIGRATION.[id number] BinaxNOW COVID-19 Ag Self Test kitTEST DIRECTED TODAY12/26/21 filled MIGRATION.[id number] busPIRone 15 mg tabletTAKE 1 TABLET BY MOUTH TWICE A DAY IAZXYG90/27/23 filled surescripts celecoxib 200 mg capsuleTAKE 1 CAPSULE BY MOUTH TWICE DAILY11/10/21 filled MIGRATION.[id number] cephALEXin 500 mg capsuleTAKE 1 CAPSULE BY MOUTH TWICE DAILY FOR 7 DAYS06/29/22 filled surescripts cetirizine 10 mg capsuleTake by oral route., start started MIGRATION.[id number] cloNIDine HCL 0.1 mg tabletTAKE 1 TABLET BY MOUTH TWICE DAILY ZWNYJN03/13/22 filled MIGRATION.[id number] clotrimazole-betamethasone 1 %-0.05 % topical creamAPPLY TO THE AFFECTED AREA TWICE DAILY FOR 2 WEEKS07/15/21 filled MIGRATION.[id number] ergocalciferol (vitamin D2) 1,250 mcg (50,000 unit) capsuleTAKE 1 CAPSULE BY MOUTH 1 TIME A WEEK WITH FOOD06/06/22 filled surescripts estradioL 0.01% (0.1 mg/gram) vaginal creamINSERT 1 GRAM VAGINALLY TWICE A WEEK10/15/22 filled surescripts FLUoxetine 20 mg capsuleTAKE 1 CAPSULE BY MOUTH EVERY DAY IN THE ZARPGJG64/27/23 filled surescripts FLUoxetine 40 mg capsuleTAKE 1 CAPSULE BY MOUTH EVERY DAY IN THE KTMTKRU82/28/22 filled surescripts glimepiride 1 mg tabletTake 1 tablet(s) twice a day by oral route before meals for 90 days.11/21/22 prescribed Deana Castaneda MD ID NOW COVID-19 Test KitTEST DIRECTED TODAY12/01/21 filled MIGRATION.[id number] metFORMIN ER 500 mg tablet,extended release 24 hrTAKE 1 TABLET BY MOUTH EVERY DAY AT SYGEYY87/12/23 filled surescripts nystatin-triamcinolone 100,000 unit/g-0.1 % topical creamAPPLY TOPICALLY TO THE AFFECTED AREA TWICE DAILY08/30/21 filled MIGRATION.[id number] OneTouch Delica Plus Lancet 33 gaugeTEST FASTING BLOOD SUGAR DAILY10/24/20 filled MIGRATION.[id number] OneTouch Verio Flex MeterTEST FASTING BLOOD SUGAR DAILY10/24/20 filled MIGRATION.[id number] OneTouch Verio test stripsTEST FASTING BLOOD SUGAR DAILY10/24/20 filled MIGRATION.[id number] oxyBUTYnin chloride ER 5 mg tablet,extended release 24 hrTAKE 1 TABLET BY MOUTH EVERY DAY10/13/22 filled surescripts pantoprazole 40 mg tablet,delayed releaseTAKE 1 TABLET BY MOUTH DAILY11/07/22 filled surescripts Synthroid 112 mcg tabletTake 1 tablet(s) every day by oral route in the morning for 90 days.11/21/22 prescribed Deana Castaneda MD Trulicity 3 mg/0.5 mL subcutaneous pen injectorInject 3 mg every week by subcutaneous route at dinner for 90 days.11/21/22 prescribed Deana Castaneda MD Vitamin D 50,000 unit capsuleTake by oral route., start started MIGRATION.[id number] zolpidem 5 mg tabletTAKE 1 TABLET BY MOUTH EVERY DAY AT ODTMBHK03/20/23 filled surescripts zolpidem ER 6.25 mg tablet,extended release,multiphaseTAKE 1 TABLET BY MOUTH AT BEDTIME KHZCWR66/02/22 filled surescripts Family History: Father - Diabetes mellitus ( age: 82) Mother - Diabetes mellitus (onset age: 80) - Anxiety disorder (onset age: 80) Sister - Diabetes mellitus (onset age: 50) - Disorder of thyroid gland (onset age: [...] DirectiveDo you have a medical power of securities attorney?: NoMarriage and SexualityWhat is your relationship status?: MarriedLifestyleDo you wear a helmet when biking?: NoDo you use your seat belt or car seat routinely?: YesEducation and OccupationWhat 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 Recommended patient to utilize the diabetesPerk[employer] from the ADA website to help with [...] subcutaneous route at dinner for 90 days. Qty: (12) 0.5 mL syringe Refills: 1 Pharmacy: [facility] #[id number] glimepiride 1 mg tablet - Take 1 tablet(s) twice a day by oral route before meals for 90 days. Qty: (180) tablet Refills: 1 Pharmacy: [facility] #[id number] 2. Hypothyroidism-FT4 low normal range- will uptitrate [...] she chooses to go outside of the [facility] system to obtain labwork she was [...] route in the morning for 90 days. Qty: (90) tablet Refills: 1 CHRISTELLE: Y Pharmacy: [facility] #[id number] Return to Office Deana Castaneda MD for Follow Up 15 at [facility] on 02/06/2023 at 03:00 PM Corbin Galicia MD [address] [facility], [address] [address], [place], [address], [facility] [employer] [facility] 07/11/2023 17:12:58 Endocrinology Note : [facility] [address], [facility] [address]FKVGADR, Silvia (id #[id number], : 1970) Documents sent via fax will [...] received this fax in error, please visit [email or web address] to notify the sender and confirm that the information will be destroyed. If you do not have internet access, please call to notify the sender and confirm that the information will be destroyed. Thank you for your attention and cooperation. [ID:[id number]][facility] [address] [place] [address] , Date: 02/06/2023RE: Lianne Alvarado, : 1970, PT ID #[id number] Wright [facility]-, I would like to thank you for referring Lianne Alvarado to our practice for consultation and evaluation of FU ON LABS , on 02/06/2023. I have enclosed a copy of the office evaluation for your records. Once again, thank you for allowing me to participate in the care of this patient. Sincerely, Electronically Signed by: DEANA CASTANEDA MD Encounter Reason/Date FU ON LABS 02/06/2023 - 03:00PM - [facility] [place] Problems:Reviewed Problems Thyroid nodule - Onset: [...] 1 TABLET BY MOUTH EVERY DAY AT NYTJYWD86/10/22 filled MIGRATION.[id number] atorvastatin 20 mg tabletTake 1 tablet every other day by oral route at bedtime for 90 days.12/06/22 filled surescripts benzonatate 200 mg capsuleTAKE 1 CAPSULE BY MOUTH THREE TIMES DAILY FOR 10 DAYS11/30/21 filled MIGRATION.0753528710 busPIRone 15 mg tabletTAKE 1 TABLET BY MOUTH TWICE A DAY RGEZSK68/21/23 filled surescripts celecoxib 200 mg capsuleTAKE 1 CAPSULE BY MOUTH TWICE DAILY11/10/21 filled MIGRATION.[id number] cetirizine 10 mg capsuleTake by oral route., start started MIGRATION.[id number] cloNIDine HCL 0.1 mg tabletTAKE 1 TABLET BY MOUTH TWICE DAILY BTKRTP15/13/22 filled MIGRATION.[id number] clotrimazole-betamethasone 1 %-0.05 % topical creamAPPLY TO THE AFFECTED AREA TWICE DAILY FOR 2 WEEKS07/15/21 filled MIGRATION.[id number] ergocalciferol (vitamin D2) 1,250 mcg (50,000 unit) capsuleTAKE 1 CAPSULE BY MOUTH 1 TIME A WEEK WITH FOOD06/06/22 filled surescripts estradioL 0.01% (0.1 mg/gram) vaginal creamINSERT 1 GRAM VAGINALLY TWICE A WEEK10/15/22 filled surescripts FLUoxetine 20 mg capsuleTAKE 1 CAPSULE BY MOUTH EVERY DAY IN THE CJCHBRW12/21/23 filled surescripts glimepiride 2 mg tabletTake 1 tablet(s) twice a day by oral route before meals for 90 days.02/06/23 prescribed Deana Castaneda MD metFORMIN ER 500 mg tablet,extended release 24 hrTAKE 1 TABLET BY MOUTH EVERY DAY AT FPJYRU77/12/23 prescribed Deana Castaneda MD Mounjaro 5 mg/0.5 mL subcutaneous pen injectorInject 5 mg every week by subcutaneous route at dinner for 90 days.02/06/23 prescribed Deana Castaneda MD nystatin-triamcinolone 100,000 unit/g-0.1 % topical creamAPPLY TOPICALLY TO THE AFFECTED AREA TWICE DAILY08/30/21 filled MIGRATION.[id number] OneTouch Delica Plus Lancet 33 gaugeTEST FASTING BLOOD SUGAR DAILY10/24/20 filled MIGRATION.[id number] OneTouch Verio Flex MeterTEST FASTING BLOOD SUGAR DAILY10/24/20 filled MIGRATION.[id number] OneTouch Verio test stripsTEST BLOOD SUGAR TWICE DAILY BEFORE MEALS02/06/23 prescribed Deana Castaneda MD oxyBUTYnin chloride ER 5 mg tablet,extended release 24 hrTAKE 1 TABLET BY MOUTH EVERY DAY01/15/23 filled surescripts pantoprazole 40 mg tablet,delayed releaseTAKE 1 TABLET BY MOUTH DAILY12/06/22 filled surescripts Synthroid 112 mcg tabletTake 1 tablet(s) every day by oral route in the morning for 90 days.02/06/23 prescribed Deana Castaneda MD Vitamin D 50,000 unit capsuleTake by oral route., start started MIGRATION.[id number] zolpidem 5 mg tabletTAKE 1 TABLET BY MOUTH EVERY DAY AT TGZOLKE93/10/23 filled surescripts Family History: Father - Diabetes mellitus ( age: 82) Mother - Diabetes mellitus (onset age: 80) - Anxiety disorder (onset age: 80) Sister - Diabetes mellitus (onset age: 50) - Disorder of thyroid gland (onset age: [...] routinely?: YesEducation and OccupationWhat is 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 Qty: (12) 0.5 mL syringe Refills: 1 Pharmacy: [facility] #[id number] glimepiride 2 mg tablet - Take 1 tablet(s) twice a day by oral route before meals for 90 days. Qty: (180) tablet Refills: 1 Pharmacy: [facility] #[id number] metformin ER 500 mg tablet,extended release 24 hr - TAKE 1 TABLET BY MOUTH EVERY DAY AT DINNER Qty: (90) tablet Refills: 1 Pharmacy: [facility] #[id number] OneTouch Verio test strips - TEST BLOOD SUGAR TWICE DAILY BEFORE MEALS Qty: (180) strip Refills: 2 Pharmacy: [facility] #[id number] Note to Pharmacy: patient has one touch reveal meter please provide lancets and strips for this thank you ONETOUCH VERIO LANCETS - test sugars twice daily before meals x 90 days Qty: 180 Units Refills: 3 Supplier: [facility] #[id number] ENDOCRINOLOGY REFERRAL - Schedule Within: provider's discretion 2. Hypothyroidism-FT4 normal range- [...] his/her PCP can refer patient to another lock expert in the area. All questions /concerns answered and refills necessary at visit today.E03.9: Hypothyroidism, unspecified Synthroid 112 mcg tablet - Take 1 tablet(s) every day by oral route in the morning for 90 days. Qty: (90) tablet Refills: 1 CHRISTELLE: Y Pharmacy: [facility] Return to Office Patient will return to the office as needed Corbin Galicia MD [address] [facility], [facility] [address], [place], [address], [place] [facility] 07/11/2023 17:12:58 Procedures Surgical History Date Name Laterality Status Provider Name and Address Organization Details Recorded Time 05/18/20 21 Date of Last Pap Smear completed Not Available [facility] 07/26/2022 13:51:55 Hysterectomy completed Not Available [facility] 07/26/2022 13:51:56 Imaging Results None recorded. Procedure Notes None recorded. Medical Equipment None [...] 1 TABLET BY MOUTH EVERY DAY DIRECTED 2024 active Not Available Not Available Not Avai lable omeprazole 40 mg capsule,del ayed release TAKE [...] administe red by the provider 08/30 completed [facility]: 0003- [id number]- [id number] Not Available Not Available Not Available cephalexin 500 mg capsule TAKE 1 CAPSULE BY MOUTH TWICE DAILY FOR 7 DAYS 02/06 completed Not Available Not Available Not Available pantoprazol e 40 mg tablet,latosha yed release TAKE 1 TABLET BY MOUTH EVERY MORNING 2024 active Not Available Not Available Not [...] administe red by the provider 08/30 completed [facility]: [phone]- [phone] Not Available Not Available [...] in Arterial blood by Pulse oximetry Systolic And Diastolic Provider Name and Address Organization Details Last Updated DateTime 4 152.4 cm 33.4 kg/m2 92179.6 5 g 97.8 [degF] 74 /min 98 % 98 % 108/70 mm[Hg] Dex Arteaga Sherley [place] [facility] 4 17:10:41 Date Recorded Body height Body mass index (BMI) Body weight Body temperature Heart rate Oxygen saturation Oxygen saturation in Arterial blood by Pulse oximetry Systolic And Diastolic Provider Name and Address Organization Details Last Updated DateTime 4 152.4 cm 32.9 kg/m2 59628.2 7 g 97.6 [degF] 78 /min 98 % 98 % 106/67 mm[Hg] Maranda Mabry MA [facility] 4 17:21:04 Date Recorded Body height Body mass index (BMI) Body weight Body temperature Heart rate Systolic And Diastolic Provider Name and Address Organization Details Last Updated DateTime 3 152.4 cm 33.7 kg/m2 39041.3 2 g 98 [degF] 95 /min 129/80 mm[Hg] LAVERNE Laurent [facility] 3 16:48:54 Date Recorded Body height Body mass index (BMI) Body weight Body temperature Heart rate Respiratory rate Oxygen saturation Oxygen saturation in Arterial blood by Pulse oximetry Systolic And Diastolic Provider Name and Address Organization Details Last Updated DateTime 4 152.4 cm 31.7 kg/m2 21706.3 1 g 98.1 [degF] 80 /min 16 /min 98 % 98 % 110/72 mm[Hg] Dex Galaviz [facility] [employer] [facility] 4 17:03:48 Date Recorded Body height Body mass index (BMI) Body weight Body temperature Respiratory rate Heart rate Systolic And Diastolic Provider Name and Address Organization Details Last Updated DateTime 3 152.4 cm 33.4 kg/m2 00521.5 8 g 97.7 [degF] 14 /min 82 /min 112/72 mm[Hg] Loan Mayberry RN [facility] [employer] [facility] 3 15:56:04 Social History Question Answer Notes LastModified by Organizat ion Details LastModified Time Tobacco Smoking Status Never Smoker lu lynch [facility] 11/21/2022 16:26:53 Do You Have An Advance Directive? No MIGRATION.344480 8061 Information not available 07/26/2022 Do You Wear A Helmet When Biking? No [email or web address] Information not available 11/21/2022 What Is Your Level Of Caffeine Consumption? Moderate MIGRATION.467117 4292 Information not available 07/26/2022 How Much Tobacco Do You Chew? None MIGRATION.199668 0261 Information not available 07/26/2022 In The 14 Days Before Symptom Onset, Have You Had Close Contact With A Laboratory-confirm ed COVID-19 While That Case Was Ill? No [email or web address] Information n ot available 11/21/2022 In The 14 Days Before Symptom Onset, Have You Had Close Contact With A Person Who Is Under Investigation For COVID-19 While That Person Was Ill? No Information not available 11/21/2022 What Type Of Diet Are You Following? REGULAR MIGRATION.694487 0683 Information not available 07/26/2022 Which Illicit Or Recreational Drugs Have You Used? None [email or web address] Information not available 11/21/2022 Have There Been Any Changes To Your Family Or Social Situation? No [email or web address] Information no t available 11/21/2022 What Is The Fluoride Status Of Your Home? Unknown Information not available 11/21/2022 Where Do You Live? [place] [email or web address] Inform ation not available 11/21/2022 Do You Have A Medical Power Of Senior Infrastructure Engineer? No [email or web address] Information not available 11/21/2022 Do You Have Any Pets? No [email or web address] Information not available 11/21/2022 What Is Your Relationship Status? MIGRATION.596533 1151 Information not available 07/26/2022 Do You Use Your Seat Belt Or Car Seat Routinely? Yes [email or web address] Information not available 11/21/2022 Do You Have Smoke And Carbon Monoxide Detectors In Your Home? Yes [email or web address] Information not available 11/21/2022 Are You Passively Exposed To Smoke? No [email or web address] Information no t available 11/21/2022 Are There Any Smokers In Your House? No Information not available 11/21/2022 Do You Participate In Social Media? No [email or web address] Information not available 11/21/2022 Have You Recently Traveled Abroad? No [email or web address] Information not available 11/21/2022 Do You Have Any Dietary Restrictions? No [email or web address] Information not available 11/21/2022 Sex: Female Functional Status Question Answer Note LastModified by Organizat ion Details LastModified Time What is your level of alcohol consumption? 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 Never used electronic cigarettes [email or web address] Information not available 11/21/2022 What is your exercise level? Moderate MIGRATION.8690245 026 Information not available 07/26/2022 Mental Status Question Answer Note LastModified by Organization D etails LastModified Time Do you feel stressed (tense, restless, nervous, or anxious, or unable to sleep at night)? [id number] Information not available 11/21/2022 Family History Relationship Description Onset Age of this Age Resolved Age Notes LastModified by Organization Details LastModified Time Father Diabetes mellitus 82 MIGRATION.556 [id number] Not available 07/26/2022 13:51:56 Mother Diabetes mellitus 80 MIGRATION.001 1819098 Not available 07/26/2022 13:51:56 Mother Anxiety disorder 80 MIGRATION.957 5026111 Not available 07/26/2022 13:51:56 Sister Diabetes mellitus 50 MIGRATION.167 [id number] Not available 07/26/2022 13:51:56 Sister Disorder of thyroid gland 50 MIGRATION.572 4913761 Not available 07/26/2022 13:51:56 Medical History Condition Response BLINDNESS N RHEUMATIC FEVER N KIDNEY STONES N BLADDER PROBLEMS N MRSA N OTHER # 1 N POLIO N LUNG DISEASE/DISORDER N HISTORY OF DRUG ABUSE N COPD N RADIATION / CHEMOTHERAPY N Other # 2 N BLOOD DISEASES N SURGERY N EAR OR HEARING PROBLEMS N MUMPS N SHINGLES N FEMALE PROBLEMS / INFECTIONS N BOWEL PROBLEMS N DEPRESSION (INCLUDING POST ) N STROKE/TIA N THYROID DISEASE N ULCERS N BENIGN PROSTATIC HYPERPLASIA N MEASLES N CERVICALGIA N TB SKIN TEST N HYPOTENSION N MYOCARDIAL INFARCTION N PARAPELGIA N OBESITY [...] GLAUCOMA N FOOT PROBLEM N DIVERTICULITIS N SLEEP APNEA N CHICKENPOX N ALLERGIES/HAYFEVER N INFECTIOUS DISEASE N PROSTATE N HEART ARRHYTHMIA N INSOMNIA N HIGH CHOLESTEROL / HYPERLIPIDEMIA Y EYE PROBLEMS N HYPERTHYROIDISM N EATING DISORDER N EDEMA N CHRONIC PAIN SYNDROME N CONSTIPATION N CAROTID BLOCKAGE N BACK / NECK PROBLEMS N HAVE YOU BEEN HOSPITALIZED OR SEEN IN [facility] IN THE PAST YEAR ? Y ATHEROSCLEROSIS [...] DISORDER N ALZHEIMER'S DISEASE N PAIN N DEMENTIA N HERPES N SEIZURES/EPILEPSY N HEADACHES/MIGRAINES N VASCULAR DISEASE N PACEMAKER N DIZZINESS N HEART DISEASE/HEART PROBLEMS N KIDNEY DISEASE N SCARLET FEVER N MULTIPLE SCLEROSIS N DEVELOPMENTAL OR BEHAVIORAL DISORDERS N MENTAL DISORDER/ILLNESS N CANCER: SPECIFY N CARDIAC ARRHYTHMIA N PNEUMONIA N ATRIAL FIBRILLATION N Gall [...] Details Recorded Time SARS-COV-2 (COVID-19) vaccine, UNSPECIFIED 1 completed Not Available [facility] 07/26/2022 13:54:13 SARS-COV-2 (COVID-19) vaccine, UNSPECIFIED 1 completed Not Available [facility] 07/26/2022 13:54:13 Past Encounters Encounter ID Performer Location Encounter Start Date Encounter Closed Date Diagnosis/Indication Diagnosis SNOMED-CT Code Diagnosis ICD10 Code Diagnosis Note [id number] Corbin Galicia MD [facility] [address] 10/20/2020 00:00:00 10/20/2020 18:30:44 [id number] PERLA Connors [facility] [place] [address] [place] [address] 11/19/2020 00:00:00 11/19/2020 15:29:04 [id number] Corbin Galicia MD [facility] [address] [place] [address] [address] 08/30/2021 00:00:00 08/30/2021 09:36:28 [id number] MD ELIF Hunter [facility] [place] [address] [place] [address] 09/30/2021 00:00:00 09/30/2021 15:50:44 [id number] MD ELIF Hunter [facility] [place] [address] [place] [address] 01/31/2022 00:00:00 01/31/2022 14:19:42 [id number] [facility] [address] [address] 12/23/2020 00:00:00 12/23/2020 20:24:02 [id number] K[facility]itha [facility] [address] [address] 02/01/2021 00:00:00 02/01/2021 18:52:17 [id number] Kavitha Vieira [facility] [address] [address] 03/01/2021 00:00:00 03/01/2021 10:24:44 [id number] Kavitha Vieira [facility] [address] [address] 04/07/2021 00:00:00 04/07/2021 18:47:05 [id number] MD SHAYNE [facility] [place] [address] [place] [address] 11/21/2022 16:24:50 11/21/2022 17:32:36 Uncontrolled type 2 diabetes mellitus [id number] E11.65 A1C of 7.8% up from 6.3%- [...] Recommende d patient to utilize the diabetesfo [employer] from the ADA website to help with food preparatio n as this presents ideal carb content per meal so this will make carb counting much easier for patient. Recommende d she incorporat e natural insulin paper conservator s such as pears, apples, cinnamon, rajat and sweet potatoes to help mobilize her endogenous insulin. Recommende d up to 150 minutes of moderate level activity/e xercise weekly. Hypothyroidism [id number] E03.9 FT4 low normal range- will uptitrate [...] she chooses to go outside of the [facility] system to obtain labwork she was [...] in her case. She voiced understand ing. [id number] Deana Castaneda MD [facility] [address] [place] [address] 02/06/2023 15:43:56 02/06/2023 16:37:40 Uncontrolled type 2 diabetes mellitus [id number] E11.65 A1C of 7.8%- will transition off [...] for insulin sensitizat ion. Refer to endocrinol anastasia per patient request. Hypothyroidism [id number] E03.9 FT4 normal range- continue synthroid at [...] answered and refills necessary at visit today. [id number] Corbin Galicia MD [address] [address] 07/11/2023 16:55:49 07/11/2023 17:47:38 Adult health examination [id number] Z00.00 Type 2 elvin betes mellitus without complication 125830530 E11.9 Screening for disorder 639103238 Z13.9 Gastroesop hageal reflux disease without esophagitis 569438480 K21.9 Pain of bi lateral knee joints [id number] 50604 M25.561 Pain in le ft lower limb 318729740 M79.605 Screening colonoscopy 44 9776248 Z12.11 [id number] Corbin Galicia MD [address] [address] 09/10/2023 17:13:32 09/10/2023 17:48:10 Type 2 diabetes mellitus without complication 319034460 E11.9 Gastroesop hageal reflux disease without esophagitis 091080306 K21.9 Pain of bi lateral knee joints 8549630933 15592 M25.561 Pain in le ft lower limb 154791610 M79.605 Hyperlipidemia 01955390 E78.5 Herpes labialis 0974342 B00.1 Pain of left wrist 64870 50787 86534 M25.532 Pain in fi nger of right hand 0645526910 28240 M79.318 [id number] Corbin Galicia MD [facility] [address] [place] [address] 01/30/2024 16:55:33 01/30/2024 17:20:37 Hyperlipidemia 07808098 E78.5 Type 2 elvin betes mellitus without complication 844251445 E11.9 Gastroesop hageal reflux disease without esophagitis 642164215 K21.9 Pain of bi lateral knee joints 3448611862 71196 M25.561 Pain in le ft lower limb 420286208 M79.605 Herpes labialis 6189992 B00.1 Pain of left wrist 30504 58905 73037 M25.532 chronic Pain in fi nger of right hand 5614613118 08518 M79.644 chronic Health Concerns Section Related Observation LastModified by Organization Detai ls LastModified Time None Recorded Concern Status LastModified by Organization Details LastModified Time None Recorded Advance Directives Directive N: Payers Insurance Date Sequence Insurance Name Policy Number Policy Roblero Covered Member ID Roblero Member ID Guarantor Name 01/28/2024 1 [facility] [facility] (PPO) [id number] Lianne Christiano [id number] OI Lianne Christiano 04/27/2024 1 [employer] - OPEN ACCESS Lianne Christiano [id number] OI Lianne Christiano 01/28/2024 [facility] Lianne Alvarado SELF SELF Lianne Alvarado Notes Date Note Type Note Provider [...] pg/MLcalcitonin not completed Deana Castaneda MD [address] [facility], [facility] [address], [place], [address], [employer] 11/21/2022 21:28:53 02/06/2023 text/html 52 yo female [...] mg/dlCr normalTSH of 4.830 uIU/mlglucose 116 mg/dLLFT wwrxb3m 7.8%microalbumin <6.8 ug/mgTPO neg Deana Castaneda MD [address] [facility], [facility] [address], [place], [address], [employer] 02/06/2023 16:49:46 07/11/2023 text/html Annual visit and ACV: C/o Lt lower leg area pain for last 2-3 months. Pt had blunt trauma at that time. Pt has never seen anyone for this. Pt has chronic b/l knee pain and is f/u with Ortho and got steroid shots with them. Pt is f/u with [facility] for her mood and is on meds by them. Denies any mood swings/SI/HI. Pt is f/u with Endo for her DM. Corbin Galicia MD [address] [facility] [address], [place], [address], [facility] [employer] [facility] Cognitive Code 07/11/2023 17:41:15 09/10/2023 text/html Pt is here [...] them. Pt is f/u with Psych at [facility] for her mood and is on meds by them. Denies any mood swings/SI/HI. Pt is f/u with Endo for her DM & hypothyroidism. Corbin Galicia MD [address], [facility] [address], [place], [address], [employer] [facility] [employer] 09/10/2023 17:44:43 01/30/2024 text/html Pt is here [...] them. Pt is f/u with Psych at [facility] for her mood and is on meds by them. Denies any mood swings/SI/HI. Pt is f/u with Endo for her DM & hypothyroidism. Corbin Galicia MD [address] [facility], [facility] [address], [place], [address], [facility] [employer] [facility] Cognitive Code 01/30/2024 17:19:00 OBGyn Episode No OBEpisode recorded.
--- OUTSIDE RECORDS SUMMARY | 2024-11-29 10:09 | XMS_ITS ---
Author Organization Unknown Medications Medication Instructions Effective Dates (start - stop) Status glimepiride 1 MG Oral Tablet [id number] 0:00:00Z - Completed fluconazole 150 MG Oral Tablet 2023-10-15 T00:00:00Z - Completed fluoxetine 20 MG Oral Capsule 2023-08-02 00:00:00Z - Completed buspirone hydrochloride 15 M G Oral Tablet - Completed fluconazole 150 MG Oral Tablet 2023-10-18 T00:00:00Z - Completed prednisone 20 MG Oral Tablet [id number] 0:00:00Z - Completed buspirone hydrochloride 15 M G Oral Tablet - Completed zolpidem tartrate 5 MG Oral Tablet 10-17T00:00:00Z - Completed 24 HR oxybutynin chloride 5 MG Extended Release Oral Tablet - Complete d zolpidem tartrate 5 MG Oral Tablet 4T00:00:00Z - Completed buspirone hydrochloride 15 M G Oral Tablet - Completed zolpidem tartrate 5 MG Oral Tablet 2022-05 0T00:00:00Z - Completed fluoxetine 20 MG Oral Capsule 2023-10-01 00:00:00Z - Completed 24 HR oxybutynin chloride 5 MG Extended Release Oral Tablet - Complete d - - Compl eted 24 HR oxybutynin chloride 5 MG Extended Release Oral Tablet - Complete d amoxicillin 500 MG Oral Tablet 2023-07-23 T00:00:00Z - Completed glimepiride 1 MG Oral Tablet [id number] 0:00:00Z - Completed clindamycin 300 MG Oral Capsule 1T00:00:00Z - Completed - - Compl eted 24 HR metformin hydrochlorid e 500 MG Extended Release Oral Tablet - Compl eted fluoxetine 20 MG Oral Capsule 2023-06-06 00:00:00Z - Completed - - Compl eted - - Compl eted glimepiride 1 MG Oral Tablet [id number] 0:00:00Z - Completed valacyclovir 500 MG Oral Tablet 2023-08-27 9T00:00:00Z - Completed zolpidem tartrate 5 MG Oral Tablet 2022-05T00:00:00Z - Completed ibuprofen 800 MG Oral Tablet [id number] 0:00:00Z - Completed amoxicillin 500 MG Oral Capsule 2023-03-28 7T00:00:00Z - Completed valacyclovir 500 MG Oral Tablet 2023-09-26 3T00:00:00Z - Completed metformin hydrochloride 500 MG Oral Tablet - Completed - - Compl eted 24 HR oxybutynin chloride 5 MG Extended Release Oral Tablet - Complete d pantoprazole 40 MG Delayed R elease Oral Tablet - Completed cyclobenzaprine hydrochlorid e 10 MG Oral Tablet - Completed metronidazole 500 MG Oral Tablet 00:00:00Z - Completed pantoprazole 40 MG Delayed R elease Oral Tablet - Completed 24 HR oxybutynin chloride 5 MG Extended Release Oral Tablet - Complete d fluoxetine 20 MG Oral Capsule 2023-03-23 00:00:00Z - Completed fluoxetine 20 MG Oral Capsule 2023-04-22 00:00:00Z - Completed ibuprofen 800 MG Oral Tablet [id number] 0:00:00Z - Completed glimepiride 2 MG Oral Tablet [id number] 0:00:00Z - Completed estradiol 0.1 MG/ML Vaginal Cream 2023-0800:00:00Z - Completed fluoxetine 20 MG Oral Capsule 2023-02-22 00:00:00Z - Completed {21 (methylprednisolone 4 MG Oral Tablet) } Pack - Completed zolpidem tartrate 5 MG Oral Tablet 2022-0500:00:00Z - Completed - - Compl eted fluoxetine 20 MG Oral Capsule 2023-07-06 00:00:00Z - Completed celecoxib 200 MG Oral Capsule 2023-07-15 00:00:00Z - Completed buspirone hydrochloride 15 M G Oral Tablet - Completed ibuprofen 800 MG Oral Tablet [id number] 0:00:00Z - Completed polyethylene glycol 3350 236 000 MG / potassium chloride 2970 MG / sodium bicarbonate 6740 MG / sodium chloride 5860 MG / sodium sulfate 80737 MG Powder for Oral Solution [Gavilyte-G] - Completed fluoxetine 20 MG Oral Capsule 2023-01-25 00:00:00Z - Completed buspirone hydrochloride 15 M G Oral Tablet - Completed - - Compl eted 24 HR oxybutynin chloride 5 MG Extended Release Oral Tablet - Complete d valacyclovir 500 MG Oral Tablet 2023-09-26 0T00:00:00Z - Completed buspirone hydrochloride 15 M G Oral Tablet - Completed glimepiride 2 MG Oral Tablet [id number] 0:00:00Z - Completed zolpidem tartrate 5 MG Oral Tablet 00:00:00Z - Completed acetaminophen 325 MG / hydro codone bitartrate 5 MG Oral Tablet - Completed valacyclovir 500 MG Oral Tablet 2023-08-28 9T00:00:00Z - Completed pantoprazole 40 MG Delayed R elease Oral Tablet - Completed zolpidem tartrate 5 MG Oral Tablet 3-T00:00:00Z - Completed {21 (methylprednisolone 4 MG Oral Tablet) } Pack - Completed buspirone hydrochloride 15 M G Oral Tablet - Completed zolpidem tartrate 5 MG Oral Tablet :00:00Z - Completed celecoxib 200 MG Oral Capsule 2023-09-14 00:00:00Z - Completed metformin hydrochloride 500 MG Oral Tablet - Completed zolpidem tartrate 5 MG Oral Tablet 2022-05:00:00Z - Completed buspirone hydrochloride 15 M G Oral Tablet - Completed - - Compl eted buspirone hydrochloride 15 M G Oral Tablet - Completed 24 HR metformin hydrochlorid e 500 MG Extended Release Oral Tablet - Compl eted - - Compl eted zolpidem tartrate 5 MG Oral Tablet 1-:00:00Z - Completed zolpidem tartrate 5 MG Oral Tablet 7T:00:00Z - Completed - - Compl eted zolpidem tartrate 5 MG Oral Tablet 2-00:00:00Z - Completed acetaminophen 325 MG / hydro codone bitartrate 5 MG Oral Tablet - Completed fluoxetine 20 MG Oral Capsule 2023-08-31 00:00:00Z - Completed celecoxib 200 MG Oral Capsule 2023-08-09 00:00:00Z - Completed - - Compl eted acetaminophen 300 MG / codei ne phosphate 30 MG Oral Tablet - Completed valacyclovir 500 MG Oral Tablet 2023-08-28 7T00:00:00Z - Completed zolpidem tartrate 5 MG Oral Tablet 911T00:00:00Z - Completed - - Compl eted - - Compl eted - - Compl eted Patient Care team information Name Category Status Period Participants - - Proposed period not known -
--- OUTSIDE RECORDS SUMMARY | 2024-11-29 10:10 | XMS_ITS | Clinical Summary ---
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 Pulse 89 07/23/2018 3:26 PM BEEF SPLITTER Temperature 36.9 C (98.4 F) 02/14/2017 10:41 AM CDT Respiratory Rate 16 02/14/2017 10:41 AM CDT [...] (1 of 3 - 19+ 3-dose series) 02/25 HPV/Cotest (21-29) 1990 CERVICAL CANCER SCREENING 1999 HPV/Cotest (30-65) 1999 PAP SMEAR 1999 BREAST CANCER SCREENING 2009 COLORECTAL SCREENING 2014 Colorectal Cancer Screening 2014 FIT-DNA Q 3 years 2014 FIT/FOBT Q 1 year 2014 Flex Sig/CT Colonography Q 5 years 2014 ZOSTER VACCINE (1 of 2) 2019 INFLUENZA VACCINE (#1) [address] [place] [address] [employer] [facility] Address: [facility] [id number] [place] [address] Care Teams Cooking Teacher Relationship Specialty Start Date End Date Harjit Patel MD [address] [place] [id number] PCP - General Family Practice 02/14/17
[2024-11-29 10:52] LABS: Alanine Aminotransferase 24 U/L (6-35); Albumin Level 4.5 g/dL (3.5-5.1); Alkaline Phosphatase 63 U/L (38-126); Anion Gap 7 mmol/L (4-12); Aspartate Amino Transferase 32 U/L (14-36); Bilirubin,Total 1.1 mg/dL (0.2-1.3); Blood Urea Nitrogen 8 mg/dL (7-17); Calcium 9.6 mg/dL (8.4-10.2); Carbon Dioxide 29 mmol/L (22-30); Chloride 100 mmol/L (98-107); Estimated Glomerular Filt Rate > 60; Glucose 115 mg/dL (65-110); Potassium 4.6 mmol/L (3.4-5.0); Sodium 136 mmol/L (137-145); Total Protein 8.2 g/dL (6.3-8.2)
[2024-11-29 11:14] LABS: Free T4 Free Thyroxine 1.07 ng/dL (0.78-2.19)
[2024-11-29 11:24] LABS: Thyroid Stimulating Hormone 3.620 uIU/mL (0.465-4.680)
== END 2024-11-29 10:05 | disposition home or self-care (01) ==
LOC: ANHLAB 10:07
PROVIDERS: PCP Family Medicine; Visit Provider Internal Medicine
DX: E78.5 Hyperlipidemia, unspecified (principal); E11.9 Type 2 diabetes mellitus without complications; E03.9 Hypothyroidism, unspecified; E55.9 Vitamin D deficiency, unspecified; Z71.3 Dietary counseling and surveillance
CPT/HCPCS: 36415; 80053; 82306; 84439; 84443

== ENCOUNTER 2024-12-12 15:47 | Outpatient (CLI) | payer OTHER, SELFPAY ==
--- NOTE | ~2024-12-12 | US_ITS ---
Thyroid ultrasound. Clinical History: Thyroid nodule COMPARISON: 07/26/2022 Findings: Real-time sonography of the thyroid gland was performed. The right lobe measures 3.7 x 1.1 x 1.0 cm. The left lobe measures 2.8 x 0.8 x 1.2 cm. The isthmus is 1.5 mm in AP diameter. There is a 5 mm hypoechoic solid nodule at the right lower pole. Impression: 5 mm hypoechoic right lower pole thyroid nodule, decreased in size from prior exam.. Reviewed, dictated and finalized at location M. Impression: 5 mm hypoechoic right lower pole thyroid nodule, decreased in size from prior e xam..
== END 2024-12-12 15:48 | disposition home or self-care (01) ==
PROVIDERS: PCP Family Medicine; Visit Provider Internal Medicine
DX: E04.1 Nontoxic single thyroid nodule (principal); E11.9 Type 2 diabetes mellitus without complications; E78.5 Hyperlipidemia, unspecified
CPT/HCPCS: 76536

== ENCOUNTER 2025-04-18 12:09 | Outpatient (CLI) | payer OTHER, SELFPAY ==
--- OUTSIDE RECORDS SUMMARY | 2025-04-18 12:12 | XMS_ITS | Data Portability ---
Author Organization [place] [facility] [employer], Main Office Address [address] [place] [address] Care Team Providers Care Financial Accounting Analyst Name Role Phone CORBIN GALICIA Primary Care Provider Assessment Encounter Date Assessment Date Assessment LastModified [...] labs, x-ray. Will refer pt to Ophtho, Woodworking Machine Setter and GI. Meds as directed. Diet and exercise explained in detail. Educated pt about alarming symptoms to monitor at home and call us back Or get checked in ED. Pt verbalized understanding it. Cont f/u with Endo as per schedule. Cont f/u with Psych at [facility] as per schedule. HM: WWE - 12/17, normal as per pt. Cont f/u with Gyne as per schedule. Mammo - 12/17, normal as per pt. Colonoscopy - 12 yrs ago. Referred to GI. Flu - Pt declined. Tdap, Shingrix, Pneumo - At pharmacy/HD. F/u in 2-3 weeks. Annual labs in 07/22. [email or web address] Not available 07/11/2023 17:40:19 09/10/2023 09/10/2023 53 [...] with Ophtho as per schedule. F/u with Woodworking Machine Setter as per schedule. Cont f/u with Endo as per schedule. Cont f/u with Psych at [facility] as per schedule. HM: WWE - 12/17, normal as per pt. Cont f/u with Gyne as per schedule. Mammo - 12/17, normal as per pt. Colonoscopy - 12 yrs ago. Referred to GI. Flu - Pt declined. Tdap, Shingrix, Pneumo - At pharmacy/HD. F/u in 3 months. Lipids in 12/18. Annual labs in 07/22. [email or web address] Not available 09/10/2023 17:44:09 01/30/2024 01/30/2024 53 [...] with Ophtho as per schedule. F/u with Woodworking Machine Setter as per schedule. Cont f/u with Endo as per schedule. Cont f/u with Psych at [facility] as per schedule. HM: WWE - 12/17, normal as per pt. Cont f/u with Gyne as per schedule. Mammo - 12/17, normal as per pt. Colonoscopy - 12/18, normal as per pt. Cont f/u with GI as per schedule. Flu - Pt declined. Tdap, Shingrix, Pneumo - At pharmacy/HD. F/u in 3 months. Annual labs in 07/22. [email or web address] Not available 01/30/2024 17:18:17 01/12/2025 01/12/2025 This note is dictated and transcribed by [employer]. Truck Driver Instructor variances may occur. Despite proofreading, typographical errors may occur. Occasional wrong-word or '[id number]' substitutions may have occurred due to the inherent limitations of voice recording. Read the chart carefully and recognize, using context, where substitutions have occurred. Not available 01/13/2025 09:56:05 Plan of Treatment Reminders Order Date Submit Date Provider Last Modified By Organization Details Last Modified Time Details Appointments None recorded. Lab lipid panel, serum [email or web address] [place] [address] (Lab), [address] [place], [address], 4 08:26:42 vitamin D, 25-hydroxy, total, serum [address] (Lab), [address] [place], [address], 4 14:00:33 glycohemogl obin, total, blood [address] (Lab), [address] [place], [address], 4 14:00:34 microalbumi n, urine [address] (Lab), [address] [place], [address], 4 14:00:34 H pylori Ag, qual immunoassay , stool [address] (Lab), [address] [place], [address], 4 14:00:34 uric acid, serum or plasma [address] (Lab), [address] [place], [address], 4 14:00:34 CBC w/ auto diff [address] (Lab), [address] [place], [address], 4 14:00:32 CMP, serum or plasma [address] (Lab), [address] [place], [address], 4 14:00:33 lipid panel, serum [address] (Lab), [address] [place], [address], 4 14:00:33 TSH, serum, reflex free T4 [address] (Lab), [address] [place], [address], 4 14:00:33 urinalysis complete, reflex culture [address] (Lab), [address] [place], [address], 4 14:00:33 Referral hand surgeon referral - Please call patient to schedule an appointment . Thank you. 2023 024 [email or web address] Rony Pollard MD, [address] [place] [address] , [address], [place], [address], 4 08:39:37 gastroenter ologist referral - Please call patient to schedule an appointment . 2023 024 [email or web address] Raina Israel MD, [address], [address], [place], [address], 4 14:26:52 pathological technician referral - Please call patient to schedule an appointment 2023 024 KENYA Logan Martínez DPM, [address], [place], [address], 4 16:36:05 ophthalmolo gist referral - Please call patient to schedule an appointment . 2023 024 [email or web address] [employer], [address], [place], [address], 4 08:42:41 endocrinolo gy referral 2022 023 [email or web address] Elenita Courtney MD, [address], [place], [address], 4 17:12:58 Procedures None recorded. Surgeries None recorded. Imaging XR, hand, 3 or more view 2023 024 [email or web address] 256 Not available 4 08:56:39 XR, wrist, 3 or more view 2023 024 [email or web address] 256 Not available 4 08:56:39 XR, tibia + fibula, 2 view 2023 024 Not available 4 09:41:02 Medication Orders valacyclovi r 500 mg tablet 2023 024 [facility], [address] [facility], [place], [place], [id number], 4 17:10:05 pantoprazol e 40 mg tablet,latosha yed release [address] [facility] #54555, [address], [place], [place], [id number], 4 17:10:05 atorvastati n 20 mg tablet [address] [facility] #85270, [address], [place], [place], [id number], 4 00:16:13 celecoxib [address] [facility] #46227, [address], [place], [place], [id number], 4 17:10:06 valacyclovi r 500 mg tablet [address] [facility] #05286, [address], [place], [place], [id number], 4 20:05:59 atorvastati n 10 mg tablet 2023 024 [email or web address] [facility] #55392, [address], [place], [place], [id number], 4 17:12:52 pantoprazol e 40 mg tablet,latosha yed release [address] [facility] #59349, [address], [place], [place], [id number], 4 20:06:08 celecoxib 200 mg capsule [address] [facility] #72757, [address], [place], [place], [id number], 4 19:59:48 pantoprazol e 40 mg tablet,latosha yed release [address] [facility] #48128, [address] [facility], [place], [place], [id number], 4 17:24:05 celecoxib 200 mg capsule [address] [facility]68492, [address] [facility], [place], [place], [id number], 4 17:24:03 Mounjaro 5 mg/0.5 mL subcutaneou s pen injector [address] [facility] #86483, [address] [facility], [place], [place], [id number], 3 16:25:16 glimepiride 2 mg tablet [address] [facility]93599, [address] [facility], [place], [place], [id number], 5 16:32:25 metformin ER 500 mg tablet,exte nded release 24 hr [address] [facility]20677, [address] [facility], [place], [place], [id number], 5 16:31:56 OneTouch Verio test strips [address] [facility] #70414, [address] [facility], [place], [place], [id number], 5 16:32:42 Synthroid 112 mcg tablet 2022 023 [email or web address], [address] [place], [place] [address], [address], [place], [address], 5 16:31:32 Patient TargetsNo targets recorded. Patient Instructions Encounter Date Encounter Id Patient Instructions Last Modified By Organization Details Last Modified Time 09/10/2023 [id number] high cholesterol : care instructions Not available 09/10/2023 17:44:20 01/30/2024 [id number] high cholesterol : care instructions [email or web address] Not available 01/30/2024 17:09:52 01/12/2025 [id number] type 2 diabetes: care instructions Not available 01/13/2025 09:57:15 diabetic foot care education Not available 01/13/2025 09:57:15 diabetic neuropathy education Not available 01/13/2025 09:57:15 Learning About Carbohydrate (Carb) Counting and Eating Out When You Have Diabetes Not available 01/13/2025 09:57:15 Reason for Referral Endocrinology Referral for U ncontrolled type 2 diabetes mellitus Referring Physician: Deana Castaneda, Endocrinology, Encounter Date: 02/06/2023 Digital Pre Press Operator Referral for Screening colonoscopy Please call patient to schedule an appointment. Referring Physician: Corbin Galicia [facility] Medicine, Encounter Date: 07/11/2023 Woodworking Machine Setter Referral for Type 2 diabetes mellitus without complication Please call patient to schedule an appointment Referring Physician: Corbin Galicia [facility] Medicine, Encounter Date: 07/11/2023 Contracting Engineer Referral for Type 2 diabetes mellitus without complication Please call patient to schedule an appointment. Referring Physician: [facility], Encounter Date: 07/11/2023 Hand Surgeon Referral for Pa in of left wrist Lt wrist and Rt 5th finger pain, chronic Please call patient to schedule an appointment. Thank you. Referring Physician: Corbin Galicia [facility] Medicine, Encounter Date: 09/10/2023 Results Created Date Observation Date Name Description Value Unit Range Abnormal Flag Note LastModifiedBy Organization Detail LastModifiedTime 07/28/19 24 07/30/2023 LIPID PANEL , [place] cholesterol, total 194 mg/dL <200 normal Not Available [employer] [facility] [address] , [place], [address], 07/30/2023 14:50:36 07/28/19 24 07/30/2023 LIPID PANEL , [place] HDL cholesterol 37 mg/dL > or = 50 low Not Available [address] [place] [address], [address], 07/30/2023 14:50:36 07/28/19 24 07/30/2023 LIPID PANEL , [place] triglyceride s 138 mg/dL <150 normal Not Available [employer] [address], [address], 07/30/2023 14:50:36 07/28/19 24 07/30/2023 LIPID PANEL [...] n, which is a valid ated novel eldao d amelia schmid r accur acy than the [employer] k[employer] equat ion in the estim ation of LDL-C . Catie martinez SS et al. PAVITHRA. 2013; 310(1 9): 2061- 2068 (http ://ed ucati on.Qu [employer]. com/f aq/FA Q164) Not Available [address] [place] [address], [address], 07/30/2023 14:50:36 07/28/19 24 07/30/2023 LIPID PANEL , [place] chol/HDLC ratio 5.2 (calc ) <5.0 high Not Available [employer] [address], [address], 07/30/2023 14:50:36 07/28/19 24 07/30/2023 LIPID PANEL , [place] non HDL cholesterol 157 mg/dL _(linda c) <130 high For patie nts with diabe pancho plus 1 major ASCVD risk facto r, treat ing to a non-H DL-C goal of <100 mg/dL (LDL- C of <70 mg/dL ) is susan campuzano thera peuti c optio n. Not Available [address] [address] [place], [address], 07/30/2023 14:50:36 07/28/19 24 07/30/2023 URIC ACID uric acid 4.6 mg/dL 2.5-7. 0 normal Thera peuti c targe t for gout patie nts: <6.0 mg/dL Not Available [address] [address] [place], [address], 07/30/2023 14:50:37 07/28/19 24 07/30/2023 COMPR EHENS FELIX METAB OLIC PANEL glucose 95 mg/dL 65-99 normal Fasti ng refer ence inter royer Not Available [address] [address] [place], [address], 07/30/2023 14:50:38 07/28/19 24 07/30/2023 COMPR EHENS FELIX METAB OLIC PANEL urea nitrogen (BUN) 10 mg/dL 7-25 normal Not Available [address] [address] [place], [address], 07/30/2023 14:50:38 07/28/19 24 07/30/2023 COMPR EHENS FELIX METAB OLIC PANEL creatinine 0.77 mg/dL 0.50-1 .03 normal Not Available [facility] [address] [address] [place], [address], 07/30/2023 14:50:38 07/28/19 24 07/30/2023 COMPR EHENS FELIX METAB OLIC PANEL eGFR 92 mL/mi n/1.7 3m2 > or = 60 normal Not Available [address] [address] [place], [address], 07/30/2023 14:50:38 07/28/19 24 07/30/2023 COMPR EHENS FELIX METAB OLIC PANEL BUN/creatini ne ratio SEE NOTE: (calc ) 6-22 Not Repor nieves: BUN and Creat inine are withi n refer ence range . Not Available [address] [place] [address], [address], 07/30/2023 14:50:38 07/28/19 24 07/30/2023 COMPR EHENS FELIX METAB OLIC PANEL sodium 141 mmol/ L 135-14 6 normal Not Available [address] [place] [address], [address], 07/30/2023 14:50:38 07/28/19 24 07/30/2023 COMPR EHENS FELIX METAB OLIC PANEL potassium 4.3 mmol/ L 3.5-5. 3 normal Not Available [address], [address], 07/30/2023 14:50:38 07/28/19 24 07/30/2023 COMPR EHENS FELIX METAB OLIC PANEL chloride 105 mmol/ L 98-110 normal Not Available [address], [address], 07/30/2023 14:50:38 07/28/19 24 07/30/2023 COMPR EHENS FELIX METAB OLIC PANEL carbon dioxide 28 mmol/ L 20-32 normal Not Available [address], [address], 07/30/2023 14:50:38 07/28/19 24 07/30/2023 COMPR EHENS FELIX METAB OLIC PANEL calcium 9.8 mg/dL 8.6-10 .4 normal Not Available [address], [address], 07/30/2023 14:50:38 07/28/19 24 07/30/2023 COMPR EHENS FELIX METAB OLIC PANEL protein, total 7.5 g/dL 6.1-8. 1 normal Not Available [address], [address], 07/30/2023 14:50:38 07/28/19 24 07/30/2023 COMPR EHENS FELIX METAB OLIC PANEL albumin 4.6 g/dL 3.6-5. 1 normal Not Available [address], [address], 07/30/2023 14:50:38 07/28/19 24 07/30/2023 COMPR EHENS FELIX METAB OLIC PANEL globulin 2.9 g/dL_ (calc ) 1.9-3. 7 normal Not Available [address], [address], 07/30/2023 14:50:38 07/28/19 24 07/30/2023 COMPR EHENS FELIX METAB OLIC PANEL albumin/glob ulin ratio 1.6 (calc ) 1.0-2. 5 normal Not Available [address], [address], 07/30/2023 14:50:38 07/28/19 24 07/30/2023 COMPR EHENS FELIX METAB OLIC PANEL bilirubin, total 0.7 mg/dL 0.2-1. 2 normal Not Available [address], [address], 07/30/2023 14:50:38 07/28/19 24 07/30/2023 COMPR EHENS FELIX METAB OLIC PANEL alkaline phosphatase 63 U/L 37-153 normal Not Available [address], [address], 07/30/2023 14:50:38 07/28/19 24 07/30/2023 COMPR EHENS FELIX METAB OLIC PANEL AST 21 U/L 10-35 normal Not Available [address], [address], 07/30/2023 14:50:38 07/28/19 24 07/30/2023 COMPR EHENS FELIX METAB OLIC PANEL ALT 17 U/L 6-29 normal Not Available [address], [address], 07/30/2023 14:50:38 07/28/19 24 07/30/2023 CBC (INCL UDES DIFF/ PLT) white blood cell count 4.1 thous and/u L 3.8-10 .8 normal Not Available [address], [address], 07/30/2023 14:50:40 07/28/19 24 07/30/2023 CBC (INCL UDES DIFF/ PLT) red blood cell count 4.45 alex on/uL 3.80-5 .10 normal Not Available [address], [address], 07/30/2023 14:50:40 07/28/19 24 07/30/2023 CBC (INCL UDES DIFF/ PLT) hemoglobin 13.3 g/dL 11.7-1 5.5 normal Not Available [address], [address], 07/30/2023 14:50:40 07/28/19 24 07/30/2023 CBC (INCL UDES DIFF/ PLT) hematocrit 40.0 % 35.0-4 5.0 normal Not Available [address], [address], 07/30/2023 14:50:40 07/28/19 24 07/30/2023 CBC (INCL UDES DIFF/ PLT) MCV 89.9 fL 80.0-1 00.0 normal Not Available [address], [address], 07/30/2023 14:50:40 07/28/19 24 07/30/2023 CBC (INCL UDES DIFF/ PLT) MCH 29.9 pg 27.0-3 3.0 normal Not Available [address], [address], 07/30/2023 14:50:40 07/28/19 24 07/30/2023 CBC (INCL UDES DIFF/ PLT) MCHC 33.3 g/dL 32.0-3 6.0 normal Not Available [address], [address], 07/30/2023 14:50:40 07/28/19 24 07/30/2023 CBC (INCL UDES DIFF/ PLT) RDW 12.0 % 11.0-1 5.0 normal Not Available [address], [address], 07/30/2023 14:50:40 07/28/19 24 07/30/2023 CBC (INCL UDES DIFF/ PLT) platelet count 197 thous and/u L 140-40 0 normal Not Available [address], [address], 07/30/2023 14:50:40 07/28/19 24 07/30/2023 CBC (INCL UDES DIFF/ PLT) MPV 10.7 fL 7.5-12 .5 normal Not Available [address], [address], 07/30/2023 14:50:40 07/28/19 24 07/30/2023 CBC (INCL UDES DIFF/ PLT) absolute neutrophils 2677 cells /uL 1500-7 800 normal Not Available [address], [address], 07/30/2023 14:50:40 07/28/19 24 07/30/2023 CBC (INCL UDES DIFF/ PLT) absolute lymphocytes 1148 cells /uL 850-39 00 normal Not Available [facility] [address], [address], 07/30/2023 14:50:40 07/28/19 24 07/30/2023 CBC (INCL UDES DIFF/ PLT) absolute monocytes 213 cells /uL 200-95 0 normal Not Available [facility] [address], [address], 07/30/2023 14:50:40 07/28/19 24 07/30/2023 CBC (INCL UDES DIFF/ PLT) absolute eosinophils 41 cells /uL 15-500 normal Not Available [facility] [address], [address], 07/30/2023 14:50:40 07/28/19 24 07/30/2023 CBC (INCL UDES DIFF/ PLT) absolute basophils 21 cells /uL 0-200 normal Not Available [facility] [address], [address], 07/30/2023 14:50:40 07/28/19 24 07/30/2023 CBC (INCL UDES DIFF/ PLT) neutrophils 65.3 % normal Not Available [facility] [address], [address], 07/30/2023 14:50:40 07/28/19 24 07/30/2023 CBC (INCL UDES DIFF/ PLT) lymphocytes 28.0 % normal Not Available [facility] [address], [address], 07/30/2023 14:50:40 07/28/19 24 07/30/2023 CBC (INCL UDES DIFF/ PLT) monocytes 5.2 % normal Not Available [facility] [address], [address], 07/30/2023 14:50:40 07/28/19 24 07/30/2023 CBC (INCL UDES DIFF/ PLT) eosinophils 1.0 % normal Not Available [facility] - [address], [address], 07/30/2023 14:50:40 07/28/19 24 07/30/2023 CBC (INCL UDES DIFF/ PLT) basophils 0.5 % normal Not Available [facility] [address], [address], 07/30/2023 14:50:40 07/28/19 24 07/30/2023 T4, FREE T4, free 1.4 NG/dL 0.8-1. 8 normal Not Available [facility] [address], [address], 07/30/2023 14:50:41 07/28/19 24 07/30/2023 TSH TSH 0.28 mIU/L low Refer ence Range > or = 20 Years 0.40- 4.50 Pregn stefany Range s First trime ster 0.26- 2.66 Secon d trime ster 0.55- 2.73 Third trime ster 0.43- 2.91 Not Available [facility] [address], [address], 07/30/2023 14:50:42 07/28/19 24 07/30/2023 VITAM IN [...] /MS is recom ravinder d: order code 41748 (jayne ents >2yrs ). See Note 1 Note 1 For addit ional infor matio n, pleas e refer to http: //enrico martinez.Que stDia gnost ics.c om/fa q/FAQ 199 (This link is being provi ded for infor chacho lee/ carter sorto l purpo ses only. ) Not Available [employer] [facility] [address], [place], [address], 07/30/2023 14:50:43 07/28/19 24 07/30/2023 HEMOG LOBIN [...] Curre ntly, no conse nsus exist s regar alisa use of hemog lobin A1c for diagn [...] hemog lobin A1c testi ng to the MD Lingo platf orm soon. In gener al, direc t gorge rison of the resul ts from diffe rent platf orms is not recom ravinder d. Not Available [employer] [facility] [address], [place], [address], 07/30/2023 14:50:44 07/28/19 24 07/30/2023 HELIC OBACT ER PYLOR I AG, EIA, STOOL helicobacter pylori Ag, EIA, stool SEE NOTE HELIC OBACT ER PYLOR I AG, EIA, STOOL Micro Numbe r: [id number] Test Statu s: Final Speci men [...] Range : Not Detec nieves Not Available [facility] [address] [place], [address], 07/30/2023 14:50:45 07/25/19 24 tibia /fibu la 2 vws, left [facility] [address] [place] [address] Patien t Name: LIANNE VARGAS Access ion #: [id number] Sex: F : 1969 2 Dictat ed By: Rakesh Shepherd Attend ing Physic luis: STEPHANY GALICIA Orderi ng Physic luis: STEPHANY GALICIA Exam Date: 2023 [...] at 2023 16:38: 23 PM Page 1 [email or web address] [facility] (Imaging) [address] [place], [address], 09/10/2023 17:32:24 10/02/19 24 XR, wrist , 3 or more view [facility] [address] [place] [address] Patien t Name: LIANNE VARGAS Access ion #: [id number] Sex: F : 1969 9 Dictat [...] at 2023 16:13: 53 PM Page 1 [email or web address] [facility] (Imaging) [address] [place], [address], 01/30/2024 17:05:52 10/02/19 24 XR, hand, 3 or more view [facility] [address] [place] [address] [phone] Patien t Name: LIANNE VARGAS Access ion #: [id number] Sex: F : 1969 9 Dictat [...] at 2023 16:14: 39 PM Page 1 [email or web address] [facility] (Imaging) [address] [place], [address], 01/30/2024 17:05:52 12/14/19 25 12/12/2024 US, thyro id No observ ation record ed. [facility] [address] [facility] [address], [place], [address], 12/16/2024 09:09:26 Result Notes Documentation Provider Name and Address Organization Details Recorded Time Xr, Wrist, 3 Or More View : [facility] [address] [id number] Patient Name: LIANNE ALVARADO Sex: F : [...] body. Page 1 Corbin Galicia MD [address] [facility], [address], [place], [address], [facility] [employer] [facility] [employer] [facility] 01/30/2024 17:05:52 Xr, Hand, 3 Or More View : [facility] [address] [place] [address] Patient Name: LIANNE ALVARADO Sex: F : [...] body. Page 1 Corbin Galicia MD [address], [facility] [address], [place], [address], [employer] 01/30/2024 17:05:52 Problems Name Problem SNOMED Code Status Onset Date Resolution Date Notes Provider Name and Address Organization Details Recorded Time Insomnia 548935177 Active 2020 Not Available [employer] 3 13:52:35 Lumbar spondylosi s 651858985 Active 2020 Not Available [facility] 3 13:52:35 Type 2 diabetes mellitus without complicati on 611287860 Active 2020 Not Available [employer] 3 13:52:35 Pain of multiple joints 16458442 Active 2020 Not Available [employer] 3 13:52:35 Osteoarthr itis 169973604 Active 2020 Not Available [facility] 3 13:52:35 Hypothyroi dism 27078581 Active 2020 Not Available [employer] 3 13:52:35 Overactive urinary bladder 642575802 Active 2020 Not Available [employer] 3 13:52:35 Hyperlipid emia 42823131 Active 2021 Not Available [facility] 3 13:52:35 Well controlled type 2 diabetes mellitus 801496180 Active 2022 Deana Castaneda MD [address], [address], [place], [address] , [facility] 3 13:52:16 Thyroid nodule 469985303 Active 2022 Cathryn Odom, [employer] null, [place] - [facility] 3 09:38:31 Uncontroll ed type 2 diabetes mellitus 384328800 Active 2022 Deana Castaneda MD [address], [address], [place], [address] , [facility] 3 17:15:50 Gastroesop hageal reflux disease without esophagiti s 184376557 Active 2023 Corbin Galicia MD [address], [address], [place], [address] , [facility] 4 17:16:15 Pain of bilateral knee joints 8932777996738 04 Active 2023 Corbin Galicia MD [address], [address], [place], [address] , [facility] 4 17:17:37 Pain in left lower limb 245194750 Active 2023 Corbin Galicia MD [address], [address], [place], [address] , [facility] - [facility] 4 17:19:00 Herpes labialis 0553324 Active 2023 Corbin Galicia MD [address], [address], [place], [address] , [facility] 4 17:36:48 Pain of left wrist 6019546621714 02 Active 2023 Corbin Galicia MD [address], [place], [address] , [facility] - [facility] [email or web address] 4 17:37:41 Pain in finger of right hand 7569640216960 09 Active 2023 Corbin Galicia MD [address], [address], [place], [address] , [facility] - [facility] [email or web address] 4 17:38:41 Mass of soft tissue 838212261 Active 2024 Logan Martínez DPM [address] [facility], [facility] [address], [place], [address] , [facility] [employer] [email or web address] 5 13:38:54 Dystrophia unguium 86345161 Active 2024 Logan Martínez DPM [address] [facility], [address] [address], [place], [address] , [facility] [email or web address] 5 13:41:55 Problem Notes Documentation Provider Name and Address Organization Details Recorded Time Endocrinology Note : [facility] [employer] [address] [facility], [facility] [email or web address], Silvia (id #[id number], : 1970) Documents sent via fax will [...] received this fax in error, please visit [email or web address] to notify the sender and confirm that the information will be destroyed. If you do not have internet access, please call to notify the sender and confirm that the information will be destroyed. Thank you for your attention and cooperation. [ID:[id number]][facility] reBounces [address] [place] [address] , Date: 02/06/2023RE: Lianne Alvarado, : 1970, PT ID #[id number] Wright [facility], I would like to thank [...] FU ON LABS 02/06/2023 - 03:00PM - SHAYNE_ONESIMOG [facility] [place] Problems:Reviewed Problems Thyroid nodule [...] 1 TABLET BY MOUTH EVERY DAY AT PZZSURL95/10/22 filled MIGRATION.[id number] atorvastatin 20 mg tabletTake 1 tablet every other day by oral route at bedtime for 90 days.12/06/22 filled surescripts benzonatate 200 mg capsuleTAKE 1 CAPSULE BY MOUTH THREE TIMES DAILY FOR 10 DAYS11/30/21 filled MIGRATION.[id number] busPIRone 15 mg tabletTAKE 1 TABLET BY MOUTH TWICE A DAY WJTROH93/21/23 filled surescripts celecoxib 200 mg capsuleTAKE 1 CAPSULE BY MOUTH TWICE DAILY11/10/21 filled MIGRATION.[id number] cetirizine 10 mg capsuleTake by oral route., start started MIGRATION.[id number] cloNIDine HCL 0.1 mg tabletTAKE 1 TABLET BY MOUTH TWICE DAILY GBEJNS88/13/22 filled MIGRATION.[id number] clotrimazole-betamethasone 1 %-0.05 % topical creamAPPLY TO THE AFFECTED AREA TWICE DAILY FOR 2 WEEKS07/15/21 filled MIGRATION.[id number] ergocalciferol (vitamin D2) 1,250 mcg (50,000 unit) capsuleTAKE 1 CAPSULE BY MOUTH 1 TIME A WEEK WITH FOOD06/06/22 filled surescripts estradioL 0.01% (0.1 mg/gram) vaginal creamINSERT 1 GRAM VAGINALLY TWICE A WEEK10/15/22 filled surescripts FLUoxetine 20 mg capsuleTAKE 1 CAPSULE BY MOUTH EVERY DAY IN THE PNEVMUF77/21/23 filled surescripts glimepiride 2 mg tabletTake 1 tablet(s) twice a day by oral route before meals for 90 days.02/06/23 prescribed Deana Castaneda MD metFORMIN ER 500 mg tablet,extended release 24 hrTAKE 1 TABLET BY MOUTH EVERY DAY AT MNQLQW77/12/23 prescribed Deana Castaneda MD Mounjaro 5 mg/0.5 mL subcutaneous pen injectorInject 5 mg every week by subcutaneous route at dinner for 90 days.02/06/23 prescribed Deana Castaneda MD nystatin-triamcinolone 100,000 unit/g-0.1 % topical creamAPPLY TOPICALLY TO THE AFFECTED AREA TWICE DAILY08/30/21 filled MIGRATION.[id number] OneTouch Delica Plus Lancet 33 gaugeTEST FASTING BLOOD SUGAR DAILY10/24/20 filled MIGRATION.[id number] OneTouch Verio Flex MeterTEST FASTING BLOOD SUGAR DAILY10/24/20 filled MIGRATION.[id number] OneTouch Verio test stripsTEST BLOOD SUGAR TWICE [...] unit capsuleTake by oral route., start started MIGRATION.[id number] zolpidem 5 mg tabletTAKE 1 TABLET BY MOUTH EVERY DAY AT WTHFYFD97/10/23 filled surescripts Family History: Father - Diabetes [...] routinely?: YesEducation and 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 Qty: (180) tablet Refills: 1 Pharmacy: [facility] #[id number] metformin ER 500 mg tablet,extended release 24 hr - TAKE 1 TABLET BY MOUTH EVERY DAY AT DINNER Qty: (90) tablet Refills: 1 Pharmacy: [facility] #[id number] OneTouch Verio test strips - TEST BLOOD SUGAR TWICE DAILY BEFORE MEALS Qty: (180) strip Refills: 2 Pharmacy: [facility] #[id number] Note to Pharmacy: patient has one touch reveal meter please provide lancets and strips for this thank you ONETOUCH VERIO LANCETS - test sugars twice daily before meals x 90 days Qty: 180 Units Refills: 3 Supplier: [facility] #[id number] ENDOCRINOLOGY REFERRAL - Schedule Within: provider's discretion [...] his/her PCP can refer patient to another plant senior manager in the area. All questions /concerns answered and refills necessary at visit today.E03.9: Hypothyroidism, unspecified Synthroid 112 mcg tablet - Take 1 tablet(s) every day by oral route in the morning for 90 days. Qty: (90) tablet Refills: 1 CHRISTELLE: Y Pharmacy: [facility] Return to Office Patient will return to the office as needed Corbin Galicia MD [address] [facility], [facility] [address], [place], [address], [facility] reBounces 07/11/2023 17:12:58 Procedures Surgical History Date Name Laterality Status Provider Name and Address Organization Details Recorded Time 05/18/20 21 Date of Last Pap Smear completed Not Available [facility] 07/26/2022 13:51:55 [facility]ste[facility] completed [facility] 07/26/[facility]22 13:51:56 Imaging Results None recorded. [...] NEEDED. CUT IN HALF IF TOO SEDATING. 01/12 completed Not Available Not Available Not Available hydroxyzine pamoate 100 mg capsule TAKE 1 CAPSULE BY MOUTH TWICE DAILY NEEDED 11/21 completed Not Available Not Available Not Available amoxicillin 500 mg capsule TAKE ONE CAPSULE BY MOUTH THREE TIMES DAILY UNTIL ALL TAKEN 07/11 completed Not Available Not Available Not Available atorvastati n 40 mg tablet TAKE 1 TABLET BY MOUTH DAILY active Not Available Not Available No t Available metformin 500 mg tablet TAKE 1 TABLET BY MOUTH DAILY 01/12 completed Not Available Not Available Not Available venlafaxine ER 37.5 mg capsule,ext ended [...] 75 mg capsule,ext ended release 24 hr 01/12 completed Not Available Not Available Not Available doxycycline [...] FOR 1 DOSE. REPEAT IN 3 DAYS 01/12 completed Not Available Not Available Not Available benzonatate 200 mg capsule TAKE 1 [...] completed Not Available Not Available Not Available clonazepam 0.5 mg tablet TAKE 1 TABLET NEEDED BY MOUTH X5 DAYS NEEDED FOR SEVERE ANXIETY/P ANIC ATTACK ONCE PER DAY. 01/12 completed Not Available Not Available Not Available [...] MOUTH EVERY 8 HOURS UNTIL ALL TAKEN 01/12 completed Not Available Not Available Not Available acetaminoph en 300 mg-codeine 30 mg [...] TABLET BY MOUTH TWICE DAILY BEFORE MEALS 01/12 completed Not Available Not Available Not Available glimepiride 1 mg tablet TAKE 1 TABLET BY MOUTH TWICE DAILY BEFORE MEALS 01/12 completed Not Available Not Available Not Available levothyroxi ne 75 mcg tablet 11/21 [...] completed Not Available Not Available Not Available SafaricrossToAl Detal Ultra Test strips TEST BLOOD GLUCOSE TWICE DAILY 01/12 completed Not Available Not Available Not Available Kenalog 10 mg/mL suspension for injection In office injection administe red by the provider 08/30 completed [facility]: [phone] Not Available Not Available Not Available cephalexin 500 mg capsule TAKE 1 CAPSULE BY MOUTH TWICE DAILY FOR 7 DAYS 02/06 completed Not Available Not Available Not Available pantoprazol e 40 mg tablet,latosha yed release TAKE 1 TABLET BY MOUTH EVERY MORNING active Not Available Not Available No t Available trazodone 150 mg tablet 11/21 completed Not Available Not Available Not Available clotrimazol e-betametha sone 1 %-0.05 % topical cream active Not Available Not Available Not Available nystatin-tr iamcinolone 100,000 unit/g-0.1 % topical cream active Not Available Not Available Not Available fluoxetine 10 mg capsule TAKE 1 CAPSULE BY MOUTH EVERY DAY IN THE MORNING FOR 90 DAYS active Not Available Not Available No t Available oxybutynin chloride ER 5 mg tablet,exte nded release 24 hr TAKE 1 TABLET BY MOUTH EVERY DAY active Not Available Not Available No t Available mupirocin 2 % topical ointment APPLY TOPICALLY TO THE AFFECTED AREA TWICE DAILY active Not Available Not Available No t Available zolpidem 5 mg tablet TAKE 1 TABLET BY MOUTH EVERY DAY AT BEDTIME FOR 30 DAYS active Not Available Not Available No t Available Synthroid 112 mcg tablet Take 1 tablet every day by oral route in the morning for 90 days. 01/12 completed Not Available Not Available Not Available ergocalcife rol (vitamin D2) 1,250 mcg (50,000 unit) capsule TAKE 1 CAPSULE BY MOUTH 1 TIME A WEEK WITH FOOD 01/12 completed Not Available Not Available Not Available diazepam 10 mg tablet TAKE 1 TABLET BY MOUTH AT BEDTIME AND 1 TABLET BY MOUTH 1 HOUR BEFORE APPOINTME NT 11/21 completed Not Available Not Available Not Available estradiol 0.01% (0.1 mg/gram) vaginal cream INSERT 1 GRAM VAGINALLY TWICE A WEEK 01/12 completed Not Available Not Available Not Available methylpredn isolone 4 mg tablets in a dose pack FOLLOW PACKAGE DIRECTION S 07/11 completed Not Available Not Available Not Available propranolol 20 mg tablet TAKE 1 TABLET BY MOUTH TWICE A DAY NEEDED 01/12 completed Not Available Not Available Not Available fluoxetine 20 mg capsule TAKE 1 CAPSULE EVERY DAY BY ORAL ROUTE IN THE MORNING FOR 90 DAYS, FOR FOR ANXIETY. active Not Available Not Available No t Available metformin ER 500 mg tablet,exte nded release 24 hr TAKE 1 TABLET BY MOUTH EVERY DAY AT DINNER 01/12 completed Not Available Not Available Not Available Microlet Lancet USE D TO CHECK FASTING GLUCOSE 12/13 completed Not Available Not Available Not Available buspirone 15 mg tablet TAKE 1 TABLET BY MOUTH TWICE A DAY NEEDED FOR 90 DAYS, FOR FOR ANXIETY. [...] Available Not Available Not Available levothyroxi ne active Not Available Not Available Not Available buspirone active Not Available Not Erica ilable Not Available oxybutynin active Not Available Not Av ailable Not Available lidocaine (PF) 10 mg/mL (1 %) injection solution In office injection administe red by the provider 08/30 completed [facility]: [phone] Not Available Not Available Not Available quetiapine 50 mg tablet TAKE 1 TABLET BY MOUTH EVERY DAY AT BEDTIME 08/30 completed Not Available Not Available Not Available cholecalcif jerilyn (vitamin D3) 1,250 mcg (50,000 unit) capsule TAKE 1 CAPSULE BY MOUTH EVERY WEEK 01/12 completed Not Available Not Available Not Available GaviLyte-G 236 gram-22.74 gram-6.74 gram-5.86 gram oral solution TAKE DIRECTED 01/29 completed Not Available Not Available Not Available cetirizine 10 mg capsule Take by oral route. 01/12 completed Not Available Not Available Not Available vilazodone 10 mg tablet TAKE 1 TABLET BY MOUTH EVERY DAY IN THE MORNING 11/21 completed Not Available Not Available Not Available Jardiance 25 mg tablet 11/21 completed [...] Flex Meter TEST FASTING BLOOD SUGAR DAILY 01/12 completed Not Available Not Available Not Available OneTouch Delica Plus Lancet 33 gauge TEST FASTING BLOOD SUGAR DAILY 01/12 completed Not Available Not Available Not Available OneTouch Delica Plus Lancet 30 gauge USE TO TEST TWICE DAILY BEFORE A MEAL 01/12 completed Not Available Not Available Not Available Rybelsus 7 mg tablet TAKE 1 TABLET [...] Not Available Not Available Not Available Mounjaro 7.5 mg/0.5 mL subcutaneou s pen injector ADMINISTE R 7.5 MG UNDER THE SKIN WEEKLY active Not Available Not Available No t Available Mounjaro 5 mg/0.5 mL subcutaneou s pen injector ADMINISTE R 5 MG UNDER THE SKIN EVERY WEEK DIRECTED active Not Available Not Available No t Available Vitals Date Recorded Body height Body mass index (BMI) Body weight Body temperature Heart rate Oxygen saturation Systolic And Diastolic Provider Name and Address Organization Details Last Updated DateTime 4 152.4 cm 33.4 kg/m2 58742.6 5 g 97.8 [degF] 74 /min 98 % 108/70 mm[Hg] Dex Galaviz [facility] [employer] [facility] 4 17:10:41 Date Recorded Body height Body mass index (BMI) Body weight Body temperature Heart rate Oxygen saturation Systolic And Diastolic Provider Name and Address Organization Details Last Updated DateTime 4 152.4 cm 32.9 kg/m2 40293.2 7 g 97.6 [degF] 78 /min 98 % 106/67 mm[Hg] Maranda Mabry MA [facility] [employer] [facility] 4 17:21:04 Date Recorded Heart rate Oxygen saturation Body temperature Systolic And Diastolic Provider Name and Address Organization Details Last Updated DateTime 01/12/2025 84 /min 98 % 98.4 [degF] 121/81 mm[Hg] LAVERNE Lechuga [facility] [employer] [facility] 5 16:29:43 Date Recorded Body height Body mass index (BMI) Body weight Provider Name and Address Organization Details Last Updated DateTime 01/12/2025 152.4 cm 31.6 kg/m2 30138.96 g Ailyn Willett [facility] 01/12/2025 16:26:48 Date Recorded Body height Body mass index (BMI) Body weight Body temperature Heart rate Respiratory rate Oxygen saturation Systolic And Diastolic Provider Name and Address Organization Details Last Updated DateTime 4 152.4 cm 31.7 kg/m2 27510.3 1 g 98.1 [degF] 80 /min 16 /min 98 % 110/72 mm[Hg] Dex Galaviz [facility] 4 17:03:48 Date Recorded Body height Body mass index (BMI) Body weight Body temperature Respiratory rate Heart rate Systolic And Diastolic Provider Name and Address Organization Details Last Updated DateTime 3 152.4 cm 33.4 kg/m2 69245.5 8 g 97.7 [degF] 14 /min 82 /min 112/72 mm[Hg] Loan Mayberry RN [facility] 3 15:56:04 Social History Question Answer Notes LastModified by Organizat ion Details LastModified Time Tobacco Smoking Status Never Smoker lu lynch, [facility] 11/21/2022 16:26:53 Do You Have An Advance Directive? No MIGRATION.[id number] 5038 Information not available 07/26/2022 Do You Wear A Helmet When Biking? No [email or web address] Information not available 11/21/2022 What Is Your Level Of Caffeine Consumption? Moderate MIGRATION.068757 3499 Information not available 07/26/2022 How Much Tobacco Do You Chew? None MIGRATION.085670 5709 Information not available 07/26/2022 In The 14 Days Before Symptom Onset, Have You Had Close Contact With A Laboratory-confirm ed COVID-19 While That Case Was Ill? No [email or web address] Information n ot available 11/21/2022 In The 14 Days Before Symptom Onset, Have You Had Close Contact With A Person Who Is Under Investigation For COVID-19 While That Person Was Ill? No [email or web address] Information not available 11/21/2022 What Type Of Diet Are You Following? REGULAR MIGRATION.878418 9782 Information not available 07/26/2022 Which Illicit Or Recreational Drugs Have You Used? None [email or web address] Information not available 11/21/2022 Have There Been Any Changes To Your Family Or Social Situation? No [email or web address] Information no t available 11/21/2022 What Is The Fluoride Status Of Your Home? Unknown [email or web address] Information not available 11/21/2022 Where Do You Live? [place] [email or web address] Inform ation not available 11/21/2022 Do You Have A Medical Power Of Ply Cutter? No [email or web address] Information not available 11/21/2022 What Was The Date Of Your Most Recent Tobacco Screening? 01/12/2025 [email or web address] Information not available 01/12/2025 Do You Have Any Pets? No [email or web address] Information not available 11/21/2022 What Is Your Relationship Status? MIGRATION.103441 1824 Information not available 07/26/2022 Do You Use Your Seat Belt Or Car Seat Routinely? Yes [email or web address] Information not available 11/21/2022 Do You Have Smoke And Carbon Monoxide Detectors In Your Home? Yes [email or web address] Information not available 11/21/2022 Are You Passively Exposed To Smoke? No [email or web address] Information no t available 11/21/2022 Are There Any Smokers In Your House? No [email or web address] Information not available 11/21/2022 Do You Participate In Social Media? No [email or web address] Information not available 11/21/2022 Has Tobacco Cessation Counseling Been Provided? No Information not available 01/12/2025 Have You Recently Traveled Abroad? No [email or web address] Information not available 11/21/2022 Do You Have Any Dietary Restrictions? No [email or web address] Information not available 11/21/2022 Sex: Female Functional Status Question Answer Note LastModified by Organizat ion Details LastModified Time Do you use any illicit or recreational drugs? No Information not available 01/12/2025 Do you or have you ever used any other forms of tobacco or nicotine? No Information not available 01/12/2025 What is your level of alcohol consumption? 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 Never used electronic cigarettes [email or web address] Information not available 11/21/2022 What is your exercise level? Moderate MIGRATION.405691 2053 Information not available 07/26/2022 Mental Status Question Answer Note LastModified by Organization D etails LastModified Time Do you feel stressed (tense, restless, nervous, or anxious, or unable to sleep at night)? [id number] [email or web address] Information not available 11/21/2022 Family History Relationship Description Onset Age of this Age Resolved Age Notes LastModified by Organization Details LastModified Time Father Diabetes mellitus 82 MIGRATION.927 [id number] Not available 07/26/2022 13:51:56 Mother Diabetes mellitus 80 MIGRATION.438 [id number] Not available 07/26/2022 13:51:56 Mother Anxiety disorder 80 MIGRATION.209 7802318 Not available 07/26/2022 13:51:56 Sister Diabetes mellitus 50 MIGRATION.248 [id number] Not available 07/26/2022 13:51:56 Sister Disorder of thyroid gland 50 MIGRATION.938 [id number] Not available 07/26/2022 13:51:56 Mother Arthritis Not available 01/12/2025 16:34:46 Mother Hypertensive disorder Not available 2024 16:35:27 Sister Arthritis Not available 01/12/2025 16:34:46 Sister Hypertensive disorder Not available 2024 16:35:27 Sister Malignant neoplastic disease Not available 2024 16:36:32 Father Cerebrovascu lar accident Not available 16:35:10 Maternal Aunt Malignant neoplastic disease Not available 2024 16:36:32 Medical History Condition Response BLINDNESS N RHEUMATIC FEVER N KIDNEY STONES N BLADDER PROBLEMS N MRSA N OTHER # 1 N POLIO N LUNG DISEASE/DISORDER N HISTORY OF DRUG ABUSE N RADIATION / CHEMOTHERAPY N COPD N Other # 2 N BLOOD DISEASES N SURGERY N EAR OR HEARING PROBLEMS N MUMPS N SHINGLES N FEMALE PROBLEMS / INFECTIONS N DEPRESSION (INCLUDING POST ) N BOWEL PROBLEMS N STROKE/TIA N THYROID DISEASE Y ULCERS N BENIGN PROSTATIC HYPERPLASIA N MEASLES [...] CAROTID BLOCKAGE N BACK / NECK PROBLEMS Y HAVE YOU BEEN HOSPITALIZED OR SEEN IN [facility] IN THE PAST YEAR ? Y ATHEROSCLEROSIS N BREAST PROBLEMS N DIALYSIS N ECZEMA N FIBROMYALGIA N OSTEOPOROSIS N ARTHRITIS Y NO SIGNIFICANT PAST MEDICAL HISTORY N APPENDICITIS N DIABETES, TYPE Y BAD TEETH N HEARTBURN / REFLUX Y ADD/ADHD N AUTISM SPECTRUM DISORDER (ASD) N HEPATITIS / LIVER DISEASE N PULMONARY DISEASE N GOUT N SLEEP DISORDER N ALZHEIMER'S DISEASE N PAIN N HERPES N DEMENTIA N SEIZURES/EPILEPSY N HEADACHES/MIGRAINES N VASCULAR DISEASE N PACEMAKER N DIZZINESS N KIDNEY DISEASE N HEART DISEASE/HEART PROBLEMS N SCARLET FEVER N MULTIPLE SCLEROSIS N MENTAL DISORDER/ILLNESS N DEVELOPMENTAL OR BEHAVIORAL DISORDERS N CARDIAC ARRHYTHMIA N CANCER: SPECIFY N PNEUMONIA N Gall Stones N ATRIAL FIBRILLATION N PULMONARY EMBOLISM N AUTOIMMUNE DISEASE N [...] (COVID-19) vaccine, UNSPECIFIED 1 completed Not Available [facility] 07/26/2022 13:54:13 SARS-COV-2 (COVID-19) vaccine, UNSPECIFIED 1 completed Not Available [facility] 07/26/2022 13:54:13 Past Encounters Encounter ID Performer Location Encounter Start Date Encounter Closed Date Diagnosis/Indication Diagnosis SNOMED-CT Code Diagnosis ICD10 Code Diagnosis IMO Codes Diagnosis Note [id number] Corbin Galicia MD [facility]_[address] [address] 10/20/2020 00:00:00 10/20/2020 18:30:44 [id number] PERLA Connors [facility] [place] [address] [place] [address] 11/19/2020 00:00:00 11/19/2020 15:29:04 [id number] Corbin Galicia MD [facility] [address] [address] 08/30/2021 00:00:00 08/30/2021 09:36:28 [id number] Deana Castaneda MD [facility] [place] [address] [place] [address] 09/30/2021 00:00:00 09/30/2021 15:50:44 [id number] Deana Castaneda MD [facility] [place] [address] [place] [address] 01/31/2022 00:00:00 01/31/2022 14:19:42 [id number] Kavitha Vieira NP [facility] [address] [address] 12/23/2020 00:00:00 12/23/2020 20:24:02 [id number] Kavitha Vieira NP [facility] [address] [address] 02/01/2021 00:00:00 02/01/2021 18:52:17 [id number] Kavitha Vieira NP [facility] [address] [address] 03/01/2021 00:00:00 03/01/2021 10:24:44 [id number] Kavitha Vieira NP [facility] [address] [place] [address] 04/07/2021 00:00:00 04/07/2021 18:47:05 [id number] Deana Castaneda MD [facility] [place] [address] [place] [address] 11/21/2022 16:24:50 11/21/2022 17:32:36 Uncontrolled type 2 diabetes mellitus 976801288 E11.65 A1C of 7.8% up from 6.3%- [...] Recommende d patient to utilize the diabetesfo [employer] from the ADA website to help with food preparatio n as this presents ideal carb content per meal so this will make carb counting much easier for patient. Recommende d she incorporat e natural insulin fbi investigator s such as pears, apples, cinnamon, rajat and sweet potatoes to help mobilize her endogenous insulin. Recommende d up to 150 minutes of moderate level activity/e xercise weekly. Hypothyroidism 58418766 E03.9 FT4 low normal range- will uptitrate [...] she chooses to go outside of the [facility] system to obtain labwork she was [...] in her case. She voiced understand ing. [id number] Deana Castaneda MD [facility] [place] [address] [place] [address] 02/06/2023 15:43:56 02/06/2023 16:37:40 Uncontrolled type 2 diabetes mellitus 737969020 E11.65 A1C of 7.8%- will transition off [...] to endocrinol ogy per patient request. Hypothyroidism 10169161 E03.9 FT4 normal range- continue synthroid at [...] answered and refills necessary at visit today. [id number] Corbin Galicia MD [address] [address] 07/11/2023 16:55:49 07/11/2023 17:47:38 Adult health examination 470668504 Z00.00 Type 2 elvin betes mellitus without complication 409176011 E11.9 Screening for disorder 886543786 Z13.9 Gastroesop hageal reflux disease without esophagitis 823108994 K21.9 Pain of bi lateral knee joints 7480496953 03537 M25.561 Pain in le ft lower limb 802026203 M79.605 Screening colonoscopy 44 3633133 Z12.11 [id number] Corbin Galicia MD [address] [address] 09/10/2023 17:13:32 09/10/2023 17:48:10 Type 2 diabetes mellitus without complication 995421726 E11.9 Gastroesop hageal reflux disease without esophagitis 329956201 K21.9 Pain of bi lateral knee joints 3071708254 84071 M25.561 Pain in le ft lower limb 290777399 M79.605 Hyperlipidemia 25962591 E78.5 Herpes labialis 0052697 B00.1 Pain of left wrist 67495 73224 62105 M25.532 Pain in fi nger of right hand 3796789191 08898 M79.582 [id number] Corbin Galicia MD [address] [address] 01/30/2024 16:55:33 01/30/2024 17:20:37 Hyperlipidemia 20772358 E78.5 Type 2 elvin betes mellitus without complication 047146347 E11.9 Gastroesop hageal reflux disease without esophagitis 493605776 K21.9 Pain of bi lateral knee joints 3739431891 78546 M25.561 Pain in le ft lower limb 635446478 M79.605 Herpes labialis 4383435 B00.1 Pain of left wrist 64293 01683 47157 M25.532 chronic Pain in fi nger of right hand 0823019846 40097 M79.644 chronic [id number] Logan Martínez DPM [facility] [place] [address] [place] [address] 01/12/2025 16:22:50 01/14/2025 16:16:47 Well controlled type 2 diabetes mellitus 603466358 E11.9 recommend supportive shoe gear dailyCheck feet daily for open wounds infection at present seek medical attention immediatel yContinue diabetic control per PCP recommenda tionFollow -up in 6 months Mass of soft tissue [id number] M79.89 [id number] right lower legdiscuss treatment optionspat ient elected to continue with surgical removal with biopsy Dystrophia unguium 44617 009 L60.3 1009 possible onychomyco sisreviewe d treatment optionspos sible toenail avulsion Health Concerns Section Related Observation LastModified by Organization Detai ls LastModified Time None Recorded Concern Status LastModified by Organization Details LastModified Time None Recorded Advance Directives Directive N: Payers Insurance Date Sequence Insurance Name Policy Number Policy Roblero Covered Member ID Roblero Member ID Guarantor Name 01/12/2025 1 [employer] - [facility] (PPO) [id number] Lianne Alvarado [id number] OI Lianne Alvarado 02/17/2025 1 FRM Study Course - [employer] - OPEN ACCESS Lianne Alvarado [id number] OI Lianne Alvarado 01/12/2025 [facility] Lianne Alvarado SELF SELF Lianne Alvarado Notes Date Note Type Note Provider Name and Address Organization Details Recorded Time 02/06/2023 text/html ROS as noted in the HPI 52 yo female comes in for follow up [...] mg/dlCr normalTSH of 4.830 uIU/mlglucose 116 mg/dLLFT ucxsn7a 7.8%microalbumin <6.8 ug/mgTPO neg Deana Castaneda MD [address] [facility], [facility] [address], [place], [address], [place] - [employer] 02/06/2023 16:49:46 07/11/2023 text/html Annual visit and ACV: C/o Lt lower leg area pain for last 2-3 months. Pt had blunt trauma at that time. Pt has never seen anyone for this. Pt has chronic b/l knee pain and is f/u with Ortho and got steroid shots with them. Pt is f/u with Psych at [facility] for her mood and is on meds by them. Denies any mood swings/SI/HI. Pt is f/u with Endo for her DM. Corbin Galicia MD [address] [facility], [facility] [address], [place], [address], [facility] [employer] [facility] [employer] 07/11/2023 17:41:15 09/10/2023 text/html Pt is here for f/u on her annual labs & x-ray. Doing overall better. Denies any problem with meds. C/o Rt 5th finger and Lt wrist pain for last few weeks. Pt went to for this, but they did not do any x-ray. Pt has chronic b/l knee pain and is f/u with Ortho and got steroid shots with them. Pt is f/u with Psych at [facility] for her mood and is on meds by them. Denies any mood swings/SI/HI. Pt is f/u with Endo for her DM & hypothyroidism. Corbin Galicia MD [address] [facility], [facility] [address], [place], [address], [employer] [facility] [employer] 09/10/2023 17:44:43 01/30/2024 text/html Pt is here for f/u on her lab, x-rays and chronic conditions. [...] them. Pt is f/u with Psych at [facility] for her mood and is on meds by them. Denies any mood swings/SI/HI. Pt is f/u with Endo for her DM & hypothyroidism. Corbin Galicia MD [address] [facility], [facility] [address], [place], [address], [facility] [employer] [facility] [employer] 01/30/2024 17:19:00 01/12/2025 text/html . Patient is 54-year-old female diabetic she presents the office for diabetic foot care. Patient denies any recent open wounds, injury, numbness and tingling, cramping of the lower extremity. Logan Martínez DPM [address] [address], [place], [address], [facility] 01/13/2025 13:42:21 OBGyn Episode No OBEpisode recorded.
--- OUTSIDE RECORDS SUMMARY | 2025-04-18 12:12 | XMS_ITS | Clinical Summary ---
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 [address] PCP - General Family Practice 02/14/17
[2025-04-18 13:06] LABS: Cholesterol 150 mg/dL (0-200); HDL Direct 34 mg/dL; Triglycerides 128 mg/dL (<150)
== END 2025-04-18 12:10 | disposition home or self-care (01) ==
LOC: ANHLAB 12:10
PROVIDERS: PCP Family Medicine; Visit Provider Internal Medicine
DX: E11.9 Type 2 diabetes mellitus without complications (principal); E78.5 Hyperlipidemia, unspecified; E03.9 Hypothyroidism, unspecified; E55.9 Vitamin D deficiency, unspecified
CPT/HCPCS: 36415; 80061